=== PATIENT | female | born 1940 | race Caucasian/White ===

== ENCOUNTER 2019-10-12 10:15 | Emergency (ER) | payer MEDICARE, MEDICAID, SELFPAY ==
[2019-10-12] VITALS (9 sets, daily range): BP systolic 104–138; BP diastolic 50–68; PULSE 65–84; RESP 16–20; TEMP 36.6–36.7; O2SAT 94–99; BMI 23.2
--- NOTE | 2019-10-12 10:26 | W.ED.NAVMDI ---
HPI - Nausea/Vomiting/Diarrhea General: Chief complaint: Nausea/Vomiting/Diarrhea Stated complaint: NAUSEA/ DIARRHEA Time Seen by Provider: 10/12/19 10:18 Source: patient Mode of arrival: ambulatory Limitations: no limitations History of Present Illness: HPI Narrative: Patient is a very nice 78-year-old female who presents to ED today with a complaint of intermittent lower abdominal cramping over the past week. She has also been experiencing diarrhea. She states at maximum she will have 10-12 stools daily. She states if she is able to eat something she will have stool particles in the diarrhea otherwise she describes it as watery and yellow in nature. She has not been on any recent antibiotics. She states abdominal cramping is only present after eating or drinking. She has not been running fevers. She reports nausea without episodes of vomiting. Patient tells me she started Dexilant a month ago to help with some acid reflux-wonders if this could be contributing to her symptoms. She is not having any urinary symptoms. She has no history of colitis or diverticulitis. Patient is passing gas. MD elicited complaint: nausea, diarrhea and abdominal pain Onset (ago): day(s) Description of diarrhea: watery Associated nausea: Yes Associated abdominal pain: Yes Location of pain: Other (across lower abdomen) Pain consistency: intermittent Quality: cramping Exacerbating factors: eating Relieving factors: none Associated symtoms: Reports nausea; Denies change in vision, chest pain, dysuria, fatigue, headache(s) or malaise Review of Systems Const: Denies: fever(s), chills, body aches, fatigue or malaise Eyes: Denies: change in vision, blurry vision, photophobia, floaters or seeing flashes ENMT: Denies: throat pain or odynophagia Card: Denies: chest pain Resp: Denies: dyspnea GI: Reports: abdominal pain, nausea and diarrhea; Denies: vomiting, hematemesis, coffee ground emesis, hematochezia or melena : Denies: flank pain, difficulty voiding, dysuria, urinary frequency, urinary urgency or urinary hesitancy Musc: Denies: neck pain or back pain Skin/Breast: Denies: rash Neuro: Denies: headache(s) Physical Exam Const: COMMON NORMALS: no acute distress, average body habitus, patient oriented x3, no limitations, healthy appearing, alert and well nourished HENMT: COMMON NORMALS: normocephalic and atraumatic HEAD & SCALP: normocephalic and atraumatic Resp: COMMON NORMALS: normal respiratory effort and clear to auscultation bilaterally AUSCULTATION: clear to auscultation bilaterally Cardio: COMMON NORMALS: regular rate and regular rhythm RATE: regular rate RHYTHM: regular rhythm GI: COMMON NORMALS: Normal to inspection, nondistended, normoactive bowel sounds present, Soft to palpation, No hepatosplenomegaly present and no masses PALPATION: Yes Soft to palpation, Yes Tenderness to palpation present (GI) (mild tenderness throughout lower abd-states she is not having much pain now) and Yes No hepatosplenomegaly present : COMMON NORMALS: Yes no CVA tenderness BLADDER/KIDNEY EXAM: Yes no CVA tenderness Back/Pelvis: COMMON NORMALS: no CVA tenderness Extremity: COMMON NORMALS: normal to inspection, capillary refill normal, no clubbing, cyanosis or edema, no calf tenderness and no pedal edema Neuro: COMMON NORMALS: patient oriented x3 SENSORIUM/ORIENTATION: Yes alert Skin: COMMON NORMALS: no rashes or lesions noted GENERAL SKIN EXAM: no rashes or lesions noted Course ED course: patient adamantly refusing CT scan w/ contrast even though kidney labs are more than appropriate for this; she states her hadoop engineer has advised her against it; CT will be performed w/o contrast Vital Signs: Vital signs: Vital Signs Temperature 97.9 F 10/12/19 10:16 Pulse Rate 69 10/12/19 13:30 Respiratory Rate 20 H 10/12/19 13:30 Blood Pressure 126/60 10/12/19 13:30 Pulse Oximetry 98 10/12/19 13:30 MDM - Nausea/Vomiting/Diarrhea MDM Narrative: Medical decision making narrative: Patient's vitals are stable. Labs are not concerning at this time. She does have a urinary tract infection. We will culture this. Patient CT scan is essentially normal. UTI most likely responsible for patient's lower abdominal cramping although she did complain of some diarrhea and it could be related to that. Again CT scan did not show colitis/diverticulitis/etc. She has not been able to give us a stool sample throughout her 4 hour ED stay. She was written outpt orders for these. Discussed BRAT diet at home. Pt given IV rocephin here and will be placed on Macrobid for her UTI. Recommend close follow up with PCP or returning to the ED for worsening symptoms. Lab Data: Labs: Lab Results 10/12/19 10/12/19 10/12/19 Range/Units 10:56 10:56 11:16 WBC Cancelled Corrected WBC Cancelled RBC Cancelled Hgb Cancelled Hct Cancelled MCV Cancelled MCH Cancelled MCHC Cancelled RDW Cancelled Plt Count Cancelled MPV Cancelled Gran % Cancelled Neut % (Auto) Cancelled Lymph % (Auto) Cancelled [place] % (Auto) Cancelled Eos % (Auto) Cancelled Baso % (Auto) Cancelled Neut # (Auto) Cancelled Lymph # (Auto) Cancelled [place] # (Auto) Cancelled Eos # (Auto) Cancelled Baso # (Auto) Cancelled Absolute Gran (aut o) Cancelled Nucleated RBC % (a uto) Cancelled Nucleated RBCs # Cancelled Sodium Cancelled Potassium Cancelled Chloride Cancelled Carbon Dioxide Cancelled Anion Gap Cancelled BUN Cancelled Creatinine Cancelled GFR Calculation Cancelled Glucose Cancelled Random Glucose Calculated Osmolal ity Cancelled Calcium Cancelled Total Bilirubin Cancelled AST Cancelled ALT Cancelled Alkaline Phosphata se Cancelled Total Protein Cancelled Albumin Cancelled Globulin Cancelled Lipase Cancelled Urine Color Yellow (Yellow) Urine Appearance Sl cloudy A (CLEAR) Urine pH 6 (5-7) Ur Specific Gravit y 1.015 (1.005-1.030) Urine Protein Neg (Negative) Urine Glucose (UA) Norm (Normal) Urine Ketones Negative (Negative) Urine Blood Neg (Negative) Urine Nitrate Negative (Negative) Urine Bilirubin Neg (NEGATIVE) Urine Urobilinogen Neg (Negative) mg/dL Ur Leukocyte Miriam ase 2+ H (Negative) Urine RBC 0-4 H (0-2) /hpf Urine WBC 5-10 H (0-5) /hpf Ur Squamous Epith Cells 0-4 H (0-5) Amorphous Sediment Not Reportable Urine Bacteria 1+ H (NONE) Urine Mucus 1+ 10/12/19 10/12/19 Range/Units 12:03 12:03 WBC 6.1 Corrected WBC RBC 4.09 L Hgb 11.7 Hct 36.8 L MCV 90.0 MCH 28.6 MCHC 31.8 RDW 13.5 Plt Count 302 MPV 9.2 Gran % Neut % (Auto) 67.9 Lymph % (Auto) 17.8 [place] % (Auto) 9.0 Eos % (Auto) 3.9 Baso % (Auto) 0.7 Neut # (Auto) 4.16 Lymph # (Auto) 1.1 [place] # (Auto) 0.6 Eos # (Auto) 0.2 Baso # (Auto) 0.0 Absolute Gran (aut o) Nucleated RBC % (a uto) 0 Nucleated RBCs # 0.0 Sodium Cancelled Potassium Cancelled Chloride Cancelled Carbon Dioxide Cancelled Anion Gap Cancelled BUN Cancelled Creatinine Cancelled GFR Calculation Cancelled Glucose 81 Random Glucose Cancelled Calculated Osmolal ity 287 Calcium Cancelled Total Bilirubin Cancelled AST Cancelled ALT Cancelled Alkaline Phosphata se Cancelled Total Protein Cancelled Albumin Cancelled Globulin Cancelled Lipase 32 Urine Color (Yellow) Urine Appearance (CLEAR) Urine pH (5-7) Ur Specific Gravit y (1.005-1.030) Urine Protein (Negative) Urine Glucose (UA) (Normal) Urine Ketones (Negative) Urine Blood (Negative) Urine Nitrate (Negative) Urine Bilirubin (NEGATIVE) Urine Urobilinogen (Negative) mg/dL Ur Leukocyte Miriam ase (Negative) Urine RBC (0-2) /hpf Urine WBC (0-5) /hpf Ur Squamous Epith Cells (0-5) Amorphous Sediment Urine Bacteria (NONE) Urine Mucus Imaging Data^: CT Abd/Pel: Radiologist's impression: [place] [address] CT Scan Report Signed Patient: Pauline Castle Unit #: [id number] : 1940 Age/Sex: 78 / F ADM Date: 10/12/19 Loc: ER Room/Bed: Attending Dr: Ordering Provider/Ordering MD: Annmarie Calix Date of Service: 10/12/19 Procedure(s): CT abdomen pelvis wo con [id number] Accession Number(s): [id number] Report Number: [id number] WS: [id number] CT ABDOMEN AND PELVIS NONCONTRAST HISTORY: lower abdominal cramping; diarrhea TECHNIQUE: Imaging performed through the abdomen and pelvis. Coronal and sagittal reformats are submitted. All CT scans at [facility] use at least one of these dose optimization techniques: automated exposure control; mA and/or kV adjustment per patient size (includes targeted exams where dose is matched to clinical indication); or iterative reconstruction. DLP: 285.65 mGy.cm COMPARISON: 01/20/2019 Lower thorax: Calcified RIGHT breast implant. Emphysematous changes at the lung bases. Small pericardial effusion. Stomach is intrathoracic, similar to the prior study. Liver: Normal size liver. 10 mm cyst in the inferior RIGHT lobe. Gallbladder: Unremarkable. Pancreas: Normal. Spleen: Normal. Adrenal glands: Normal. Right kidney: Mild to moderate atrophy of the RIGHT kidney with no obstruction or solid mass. Mild diffuse cortical thinning. Left kidney: Mild/moderate atrophy of the LEFT kidney with no obstruction or mass. Mild diffuse cortical thinning. Moderate atherosclerosis aorta. No aneurysm. No free fluid, intraperitoneal air or significant lymphadenopathy. GI tract: No GI tract obstruction. No significant inflammatory changes surrounding the colon. No stricture or obstruction is identified. There are a few diverticula without acute diverticulitis. Abdominal wall: Intact. Pelvis: Stable RIGHT adnexal cyst measures 3.7 x 2.8 cm. There is a smaller cyst in the LEFT adnexa. Negative urinary bladder. Osseous structures: Increase in the lumbar lordosis. No osteoblastic or osteolytic bone disease. Prior pinning of the LEFT hip. CT/CT abdomen pelvis con [id number] IMPRESSION: 1. No acute abdominal process identified. 2. Mild diverticulosis without acute diverticulitis. 3. Atherosclerosis aorta. 4. Intrathoracic stomach. 5. Atrophied kidneys. No ascites. Dictated By: Destinee Rivers DO Signed By: Destinee Rivers DO Signed Date/Time: 10/12/19 1330 DD/ 1324 Discharge Plan Discharge Patient Disposition: Home Clinical Impression: Acute cystitis without hematuria Diarrhea Qualifiers: Diarrhea type: unspecified type Qualified Code(s): R19.7 - Diarrhea, unspecified Condition: Stable Prescriptions: New Macrobid 100 mg capsule 100 mg PO BID 7 Days Qty: 14 RF: 0 No Action carvedilol 6.25 mg tablet 6.25 mg PO BID Qty: 180 RF: 3 Wixela Inhub 250-50 mcg/dose Blister With Device 1 inh INHALATION BID RF: 0 atorvastatin 20 mg Tablet 20 mg PO DAILY RF: 0 famotidine 40 mg Tablet 40 mg PO BID RF: 0 spironolactone 25 mg Tablet 12.5 mg PO DAILY RF: 0 levothyroxine 25 mcg Tablet 25 mcg PO DAILY RF: 0 alprazolam 0.25 mg Tablet 0.25 mg PO BID RF: 0 Dexilant 60 mg Capsule,Biphase Delayed Releas 60 mg PO DAILY RF: 0 Discharge Orders: Discharge Order (Routine); Ordered 10/12/19 Ordered By: Annmarie Calix Referrals: Hoa Stock [Primary Care Provider] - Patient Instructions: Urinary Tract Infection in Women (ED) Activity Restrictions/Additional Instructions: As discussed I have written you outpatient orders for stool samples. If you have a diarrhea stool at home you may collect this and bring this back so we can run them. Return to the emergency department for worsening abdominal pain, worsening diarrhea, bloody diarrhea, repetitive episodes of vomiting, fevers, any other concerns you may have. Otherwise please follow-up with your primary care provider next week. Coding Level of Care Code ED Commissary Production Supervisor for Chg Fwd Exam Comprehensive
--- NOTE | 2019-10-12 10:35 | CT_ITS ---
WS: [id number] CT ABDOMEN AND PELVIS NONCONTRAST HISTORY: lower abdominal cramping; diarrhea TECHNIQUE: Imaging performed through the abdomen and pelvis. Coronal and sagittal reformats are submi tted. All CT scans at [facility] use at least one of these dose optimization techniques: automated exposure control; mA and/or kV adjustment per patient size (includes targeted exams where d ose is matched to clinical indication); or iterative reconstruction. DLP: 285.65 mGy.cm COMPARISON: 01/20/2019 Lower thorax: Calcified RIGHT breast implant. Emphysematous changes at the lung bases. Small pericard ial effusion. Stomach is intrathoracic, similar to the prior study. Liver: Normal size liver. 10 mm cyst in the inferior RIGHT lobe. Gallbladder: Unremarkable. Pancreas: Normal. Spleen: Normal. Adrenal glands: Normal. Right kidney: Mild to moderate atrophy of the RIGHT kidney with no obstruction or solid mass. Mild di ffuse cortical thinning. Left kidney: Mild/moderate atrophy of the LEFT kidney with no obstruction or mass. Mild diffuse corti simona thinning. Moderate atherosclerosis aorta. No aneurysm. No free fluid, intraperitoneal air or significant lymphadenopathy. GI tract: No GI tract obstruction. No significant inflammatory changes surrounding the colon. No stri cture or obstruction is identified. There are a few diverticula without acute diverticulitis. Abdominal wall: Intact. Pelvis: Stable RIGHT adnexal cyst measures 3.7 x 2.8 cm. There is a smaller cyst in the LEFT adnexa. Negative urinary bladder. Osseous structures: Increase in the lumbar lordosis. No osteoblastic or osteolytic bone disease. Olga Lidiao r pinning of the LEFT hip. CT/CT abdomen pelvis wo con [id number] IMPRESSION: 1. No acute abdominal process identified. 2. Mild diverticulosis without acute diverticulitis. 3. Atherosclerosis aorta. 4. Intrathoracic stomach. 5. Atrophied kidneys. No ascites.
[2019-10-12] MEDS: sodium chloride 0.9% 1,000 ML 999 ML IV (11:05)
[2019-10-12 11:30] LABS: Add Urine Microscopic? YES; Bilirubin Urine Neg (NEGATIVE); Blood Urine Neg (Negative); Glucose Urine UA Norm (Normal); Ketones Urine Negative (Negative); Leukocyte Esterase Urine 2+ (Negative); Nitrate Urine Negative (Negative); Protein Urine Neg (Negative); Specific Gravity, Urine 1.015 (1.005-1.030); Urine Color Yellow (Yellow); Urobilinogen Urine Neg (Negative); pH Urine 6 (5-7)
[2019-10-12 11:31] LABS: Add Urine Culture? Yes; Bacteria Urine 1+; Mucus Urine 1+; RBC Urine 0-4 /hpf (0-2); Squamous Epithelial Cell Urine 0-4 (0-5)
[2019-10-12 12:09] LABS: Basophils % 0.7 %; Eosinophils # 0.2 10^3/uL (0.0-0.8); Eosinophils % 3.9 %; Hematocrit 36.8 % (37.0-47.0); Hemoglobin 11.7 g/dL (11.5-15.3); Lymphocytes # 1.1 10^3/uL (0.8-4.8); Lymphocytes % 17.8 %; Mean Corpuscular HGB Conc 31.8 g/dL (30.0-36.0); Mean Corpuscular Hemoglobin 28.6 pg (28.0-34.0); Mean Platelet Volume 9.2 fL (7.4-10.4); Monocytes # 0.6 10^3/uL (0.2-0.9); Neutrophils # 4.16 10^3/uL (1.8-7.7); Neutrophils % 67.9 %; Nucleated Red Blood Cells % 0 %; Platelet Count 302 10^3/cmm (130-400); Red Blood Count 4.09 10^6/uL (4.1-5.3); Red Cell Distribution Width 13.5 % (12.1-15.1); White Blood Count 6.1 10^3/uL (4.0-10.0)
[2019-10-12 12:28] LABS: Alanine Aminotransferase < 5 U/L (0-33); Albumin Level 3.9 g/dL (3.5-5.2); Alkaline Phosphatase 105 IU/L (35-105); Anion Gap 12.3 (5-19); Aspartate Amino Transferase 11 U/L (0-32); Blood Urea Nitrogen 15 mg/dL (8-23); Calcium 8.8 mg/dL (8.5-10.5); Carbon Dioxide 17 mmol/L (22-29); Chloride 115 mmol/L (98-107); Creatinine Clr Calc Pharmacy 33.5898; Globulin 2.3 g/dL (1.3-4.6); Glucose 81 mg/dL (65-115); Lipase 32 U/L (13-60); Osmolality Calculated 287 mOsm/kg (285-295); Potassium 3.3 mmol/L (3.5-5.1); Sodium 141 mmol/L (136-145); Total Bilirubin 0.2 mg/dL (0.15-1.2); Total Protein 6.2 g/dL (6.6-8.7)
[2019-10-12] MEDS: cefTRIAXone 1,000 MG in sodium chloride 0.9% (plus) 50 ML 100 MG IV (13:47)
== END 2019-10-12 14:35 | disposition home or self-care (01) ==
PROVIDERS: Emergency Provider Physician Assistant; PCP Nurse Practitioner Family
DX: N30.00 Acute cystitis without hematuria (principal); R19.7 Diarrhea, unspecified
CPT/HCPCS: 12345; 74176; 80053; 81001; 83690; 85025; 87086; 96365; 99283; 99284; J0696; J7030

== ENCOUNTER 2019-12-15 12:39 | Emergency (ER) | payer MEDICARE, MEDICAID, SELFPAY ==
[2019-12-15] VITALS (11 sets, daily range): BP systolic 94–126; BP diastolic 51–81; PULSE 80–110; RESP 16–22; TEMP 36.6–36.9; O2SAT 96–100; BMI 23.8
[2019-12-15 13:20] LABS: Basophils % 0.4 %; Eosinophils # 0.6 10^3/uL (0.0-0.8); Eosinophils % 5.3 %; Hematocrit 25.2 % (37.0-47.0); Hemoglobin 7.6 g/dL (11.5-15.3); Lymphocytes # 1.6 10^3/uL (0.8-4.8); Lymphocytes % 14.7 %; Mean Corpuscular HGB Conc 30.2 g/dL (30.0-36.0); Mean Corpuscular Hemoglobin 25.9 pg (28.0-34.0); Mean Platelet Volume 9.5 fL (7.4-10.4); Monocytes # 0.9 10^3/uL (0.2-0.9); Monocytes % 8.5 %; Neutrophils # 7.47 10^3/uL (1.8-7.7); Neutrophils % 70.3 %; Nucleated Red Blood Cells % 0 %; Platelet Count 421 10^3/cmm (130-400); Red Blood Count 2.93 10^6/uL (4.1-5.3); Red Cell Distribution Width 15.7 % (12.1-15.1); White Blood Count 10.6 10^3/uL (4.0-10.0)
[2019-12-15 13:28] LABS: Alanine Aminotransferase 7 U/L (0-33); Albumin Level 3.9 g/dL (3.5-5.2); Alkaline Phosphatase 108 IU/L (35-105); Anion Gap 16.2 (5-19); Aspartate Amino Transferase 10 U/L (0-32); Blood Urea Nitrogen 39 mg/dL (8-23); Calcium 9.2 mg/dL (8.5-10.5); Carbon Dioxide 21 mmol/L (22-29); Chloride 102 mmol/L (98-107); Glucose 130 mg/dL (65-115); Lipase 44 U/L (13-60); Osmolality Calculated 291 mOsm/kg (285-295); Potassium 4.2 mmol/L (3.5-5.1); Sodium 135 mmol/L (136-145); Total Bilirubin 0.2 mg/dL (0.15-1.2); Total Protein 5.9 g/dL (6.6-8.7)
[2019-12-15 14:06] LABS: Lactic Sepsis W/Reflex 1.1 mmol/L (0.5-2.2)
--- NOTE | 2019-12-15 14:09 | ED_ITS ---
HPI - GI Bleed General: Chief complaint: GI Bleed Stated complaint: BLACK STOOLS/WEAKNESS Time Seen by Provider: 12/15/19 12:42 History of Present Illness: HPI Narrative: This patient is an 79-year-old female who presents today with black stools. She says she has been having this problem for years and it comes and goes. She also has had low iron in the past. She had been having some black stools and got a blood transfusion in [place] on Tuesday. She comes in today having had several more black bowel movements and feeling very weak and short of breath. complaint: melena Onset (ago): week(s) (1) Pain Consistency: other (No pain) Relieving factors: none Exacerbating factors: none Context: history of GI bleed (Has had multiple endoscopies with no findings. She said Protonix usually stops the bleeding.) Associated symptoms: Reports weakness and other (Short of breath); Denies abdominal pain, chills, easy bruising, fever(s), headache(s), malaise, nausea, rash or vomiting Review of Systems General: Reports: 10 or more systems reviewed and unremarkable except in HPI and below Const: Reports: fatigue; Denies: fever(s), chills or malaise Eyes: Denies: change in vision ENMT: Denies: odynophagia Card: Denies: chest pain or swelling of feet/ankles Resp: Reports: dyspnea; Denies: productive cough or non-productive cough GI: Reports: melena; Denies: abdominal pain, nausea or vomiting : Denies: flank pain or difficulty voiding Musc: Denies: neck pain or back pain Skin/Breast: Denies: rash Neuro: Denies: headache(s), numbness in extremities or weakness in extremities Emre/Lymph: Denies: easy bruising or easy bleeding Physical Exam Const: COMMON NORMALS: no acute distress, patient oriented x3, no limitations and alert GENERAL APPEARANCE: cooperative and comfortable HENMT: HEAD & SCALP: normal to inspection FACE & SINUS: normal facial exam Eye: GENERAL EYE: appearance normal, both eyes and all related structures Neck/C-Spine: COMMON NORMALS: supple, no meningeal signs and no JVD Chest: COMMONS NORMALS: normal inspection of the chest Resp: COMMON NORMALS: normal respiratory effort, No use of accessory muscles and clear to auscultation bilaterally AUSCULTATION: clear to auscultation bilaterally Cardio: COMMON NORMALS: no JVD, regular rate, regular rhythm and No murmurs present (Cardio) RATE: regular rate RHYTHM: regular rhythm GI: COMMON NORMALS: Normal to inspection, nondistended, normoactive bowel sounds present, Soft to palpation and non-tender INSPECTION: Yes normal to inspection AUSCULTATION: Yes normoactive bowel sounds PALPATION: Yes Soft to palpation Back/Pelvis: COMMON NORMALS: thoracic and lumbar spine normal to inspection Extremity: COMMON NORMALS: normal to inspection Neuro: COMMON NORMALS: patient oriented x3, moves all extremities, no focal motor deficits and no sensory deficits noted SENSORIUM/ORIENTATION: Yes alert MENINGEAL SIGNS: Yes no meningeal signs Psych: COMMON NORMALS: mental status grossly normal, cooperative and normal affect Skin: COMMON NORMALS: no rashes or lesions noted and turgor normal GENERAL SKIN EXAM: no rashes or lesions noted and turgor normal Course ED course: Patient's hemoglobin was 7.6. Technically that would not trigger transfusion however she is symptomatic with the anemia and so I feel like it is reasonable to give her a unit. I do not necessarily think she needs to be admitted as this is been a chronic problem. As long as she does not have any further episodes here I think she may be able to go home still. Vital Signs: Vital signs: Vital Signs Temperature 98.2 F 12/15/19 17:00 Pulse Rate 100 12/15/19 19:22 Respiratory Rate 18 12/15/19 19:22 Blood Pressure 112/51 12/15/19 17:00 Pulse Oximetry 100 12/15/19 19:22 MDM - GI Bleed Lab Data: Labs: Lab Results 12/15/19 12/15/19 12/15/19 Range/Units 11:50 11:50 11:50 WBC 10.6 H (4.0-10.0) 10^3/ uL RBC 2.93 L (4.1-5.3) 10^6/u L Hgb 7.6 L (11.5-15.3) g/dL Hct 25.2 L (37.0-47.0) % MCV 86.0 (81-99) fL MCH 25.9 L (28.0-34.0) pg MCHC 30.2 (30.0-36.0) g/dL RDW 15.7 H (12.1-15.1) % Plt Count 421 H (130-400) 10^3/c mm MPV 9.5 (7.4-10.4) fL Neut % (Auto) 70.3 % Lymph % (Auto) 14.7 % [place] % (Auto) 8.5 % Eos % (Auto) 5.3 % Baso % (Auto) 0.4 % Neut # (Auto) 7.47 (1.8-7.7) 10^3/u L Lymph # (Auto) 1.6 (0.8-4.8) 10^3/u L [place] # (Auto) 0.9 (0.2-0.9) 10^3/u L Eos # (Auto) 0.6 (0.0-0.8) 10^3/u L Baso # (Auto) 0.0 (0.0-0.1) 10^3/u L Nucleated RBC % (a uto) 0 % Nucleated RBCs # 0.0 /100WBC Sodium 135 L (136-145) mmol/L Potassium 4.2 (3.5-5.1) mmol/L Chloride 102 (98-107) mmol/L Carbon Dioxide 21 L (22-29) mmol/L Anion Gap 16.2 (5-19) BUN 39 H (8-23) mg/dL Creatinine 1.3 H (0.5-0.9) mg/dL GFR Calculation Not Reportable Glucose 130 H (65-115) mg/dL Calculated Osmolal ity 291 (285-295) mOsm/k g Lactic Acid (0.5-2.2) mmol/L Calcium 9.2 (8.5-10.5) mg/dL Iron 13 L (37-145) ug/dL TIBC 385 mcg/dl % Saturation 3.3 L (20-50) % Unsat Iron Binding 372 H (112-347) ug/dL Ferritin 68 (15-150) ng/mL Total Bilirubin 0.2 (0.15-1.2) mg/dL AST 10 (0-32) U/L ALT 7 (0-33) U/L Alkaline Phosphata se 108 H (35-105) IU/L Total Protein 5.9 L (6.6-8.7) g/dL Albumin 3.9 (3.5-5.2) g/dL Globulin 2.0 (1.3-4.6) g/dL Lipase 44 (13-60) U/L Blood Type Rho(D) Type Antibody Screen Crossmatch 12/15/19 12/15/19 Range/Units 13:36 13:36 WBC (4.0-10.0) 10^3/ uL RBC (4.1-5.3) 10^6/u L Hgb (11.5-15.3) g/dL Hct (37.0-47.0) % MCV (81-99) fL MCH (28.0-34.0) pg MCHC (30.0-36.0) g/dL RDW (12.1-15.1) % Plt Count (130-400) 10^3/c mm MPV (7.4-10.4) fL Neut % (Auto) % Lymph % (Auto) % [place] % (Auto) % Eos % (Auto) % Baso % (Auto) % Neut # (Auto) (1.8-7.7) 10^3/u L Lymph # (Auto) (0.8-4.8) 10^3/u L [place] # (Auto) (0.2-0.9) 10^3/u L Eos # (Auto) (0.0-0.8) 10^3/u L Baso # (Auto) (0.0-0.1) 10^3/u L Nucleated RBC % (a uto) % Nucleated RBCs # /100WBC Sodium (136-145) mmol/L Potassium (3.5-5.1) mmol/L Chloride (98-107) mmol/L Carbon Dioxide (22-29) mmol/L Anion Gap (5-19) BUN (8-23) mg/dL Creatinine (0.5-0.9) mg/dL GFR Calculation Glucose (65-115) mg/dL Calculated Osmolal ity (285-295) mOsm/k g Lactic Acid 1.1 (0.5-2.2) mmol/L Calcium (8.5-10.5) mg/dL Iron (37-145) ug/dL TIBC mcg/dl % Saturation (20-50) % Unsat Iron Binding (112-347) ug/dL Ferritin (15-150) ng/mL Total Bilirubin (0.15-1.2) mg/dL AST (0-32) U/L ALT (0-33) U/L Alkaline Phosphata se (35-105) IU/L Total Protein (6.6-8.7) g/dL Albumin (3.5-5.2) g/dL Globulin (1.3-4.6) g/dL Lipase (13-60) U/L Blood Type O Positive Rho(D) Type Positive Antibody Screen Negative Crossmatch See Detail Discharge Plan Discharge Patient Disposition: Home Clinical Impression: Lower gastrointestinal hemorrhage Anemia Qualifiers: Anemia type: unspecified type Qualified Code(s): D64.9 - Anemia, unspecified Condition: Stable Prescriptions: No Action carvedilol 6.25 mg tablet 6.25 mg PO BID Qty: 180 RF: 3 Wixela Inhub 250-50 mcg/dose Blister With Device 1 inh INHALATION BID RF: 0 atorvastatin 20 mg Tablet 20 mg PO DAILY RF: 0 famotidine 40 mg Tablet 40 mg PO BID RF: 0 spironolactone 25 mg Tablet 12.5 mg PO DAILY RF: 0 levothyroxine 25 mcg Tablet 25 mcg PO DAILY RF: 0 alprazolam 0.25 mg Tablet 0.25 mg PO BID RF: 0 Dexilant 60 mg Capsule,Biphase Delayed Releas 60 mg PO DAILY RF: 0 Discharge Orders: Discharge Order (Routine); Ordered 12/15/19 Ordered By: Chloé Michele Referrals: Hoa Stock [Primary Care Provider] - Discharge Diet: Advance as tolerated Discharge Activity: Resume usual activity Patient Instructions: Gastrointestinal Bleeding (ED), Anemia (ED) Activity Restrictions/Additional Instructions: Follow-up with your primary care doctor this week. Return to the emergency department if new or worsening symptoms including continued GI bleeding, shortness of breath, chest pain, weakness. Discharge Date/Time: 12/15/19 19:22 Coding Level of Care Code ED Mill Tender Second Operator for Chaitanya Fwlisy Exam Comprehensive
[2019-12-15] MEDS: pantoprazole 40 mg SDV 80 MG IVP (15:15)
[2019-12-15 16:18] LABS: Ferritin 68 ng/mL (15-150); Iron 13 ug/dL (37-145); Percent Saturation 3.3 % (20-50); Total Iron Binding Capacity 385 mcg/dl; Unsaturated Iron Binding 372 ug/dL (112-347)
== END 2019-12-15 19:22 | disposition home or self-care (01) ==
PROVIDERS: Emergency Provider Emergency Medicine; PCP Nurse Practitioner Family
DX: K92.2 Gastrointestinal hemorrhage, unspecified (principal); D64.9 Anemia, unspecified
CPT/HCPCS: 12345; 36415; 36430; 80053; 82728; 83540; 83550; 83605; 83690; 85025; 86850; 86900; 86920; 96374; 99284; C9113; P9016

== ENCOUNTER 2019-12-19 10:15 | Outpatient (CLI) | payer MEDICARE, MEDICAID, SELFPAY ==
[2019-12-19 12:14] LABS: Basophils % 0.6 %; Eosinophils # 0.5 10^3/uL (0.0-0.8); Eosinophils % 6.6 %; Hematocrit 31.6 % (37.0-47.0); Hemoglobin 9.2 g/dL (11.5-15.3); Lymphocytes # 1.3 10^3/uL (0.8-4.8); Lymphocytes % 18.5 %; Mean Corpuscular HGB Conc 29.1 g/dL (30.0-36.0); Mean Corpuscular Hemoglobin 25.7 pg (28.0-34.0); Mean Corpuscular Volume 88.3 fL (81-99); Mean Platelet Volume 9.5 fL (7.4-10.4); Monocytes # 0.8 10^3/uL (0.2-0.9); Monocytes % 11.2 %; Neutrophils # 4.55 10^3/uL (1.8-7.7); Neutrophils % 62.5 %; Nucleated Red Blood Cells % 0 %; Platelet Count 357 10^3/cmm (130-400); Red Blood Count 3.58 10^6/uL (4.1-5.3); Red Cell Distribution Width 16.4 % (12.1-15.1); White Blood Count 7.3 10^3/uL (4.0-10.0)
== END 2019-12-19 10:16 | disposition home or self-care (01) ==
LOC: ONCMED 14:21
PROVIDERS: PCP Nurse Practitioner Family; Visit Provider Internal Medicine Hematology & Oncology
DX: D50.8 Other iron deficiency anemias (principal)
CPT/HCPCS: 85025

== ENCOUNTER 2019-12-24 06:09 | Outpatient (CLI) | payer MEDICARE, MEDICAID, SELFPAY ==
[2019-12-24 11:07] LABS: Basophils % 0.4 %; Eosinophils # 0.5 10^3/uL (0.0-0.8); Eosinophils % 5.4 %; Hematocrit 31.3 % (37.0-47.0); Hemoglobin 9.1 g/dL (11.5-15.3); Lymphocytes # 1.2 10^3/uL (0.8-4.8); Lymphocytes % 11.8 %; Mean Corpuscular HGB Conc 29.1 g/dL (30.0-36.0); Mean Corpuscular Hemoglobin 25.1 pg (28.0-34.0); Mean Corpuscular Volume 86.2 fL (81-99); Mean Platelet Volume 9.2 fL (7.4-10.4); Monocytes # 0.7 10^3/uL (0.2-0.9); Monocytes % 7.3 %; Neutrophils % 74.7 %; Nucleated Red Blood Cells % 0 %; Platelet Count 452 10^3/cmm (130-400); Red Blood Count 3.63 10^6/uL (4.1-5.3); Red Cell Distribution Width 16.4 % (12.1-15.1)
[2019-12-24 11:23] LABS: Alanine Aminotransferase 9 U/L (0-33); Alkaline Phosphatase 118 IU/L (35-105); Anion Gap 15.9 (5-19); Aspartate Amino Transferase 12 U/L (0-32); Blood Urea Nitrogen 17 mg/dL (8-23); Calcium 8.7 mg/dL (8.5-10.5); Carbon Dioxide 22 mmol/L (22-29); Chloride 105 mmol/L (98-107); Ferritin 6 ng/mL (15-150); Globulin 2.4 g/dL (1.3-4.6); Glucose 99 mg/dL (65-115); Iron 21 ug/dL (37-145); Osmolality Calculated 290 mOsm/kg (285-295); Percent Saturation 5.5 % (20-50); Potassium 3.9 mmol/L (3.5-5.1); Sodium 139 mmol/L (136-145); Total Bilirubin 0.3 mg/dL (0.15-1.2); Total Iron Binding Capacity 377 mcg/dl; Total Protein 6.4 g/dL (6.6-8.7); Unsaturated Iron Binding 356 ug/dL (112-347)
[2019-12-24] MEDS: ferric carboxy (IVPB) 750 MG in sodium chloride 0.9% (100 ml) 100 ML 460 MG IV (12:36)
--- NOTE | 2019-12-28 15:48 | ONC FU_ITS ---
Dr. Iverson Patient Follow-Up Note Patient: Pauline Castle Unit #: [id number]: 1940 Dicatated By: Freedom Iverson M.D.Date of Visit:Dec 24, 2019 Onc Med Follow-up/Prog Note Chief Complaint: Anemia. History of Present Illness: This is an 79 year-old woman with iron deficiency anemia. She has a history of hypertension, dyslipidemia, and coronary artery disease. She underwent coronary angioplasty/stent placement in 2009. Sometime after that she had an episode of GI bleeding, which apparently was confirmed by endoscopy to be a bleeding ulcer. I had seen her initially in July 2013 after she had been found to be severely anemic. She felt better following a transfusion of packed red blood cells, but her followup CBCs were still showing significant anemia. As of June 2013 her hemoglobin was still low at 6.2 g with hematocrit 27%. The red cell indices were hypochromic/microcytic with MCV 27 and MCH 64. White blood cell count normal at 5900 and platelet count was normal at 324,000. Serum iron was low at 11 mcg/dL. She had started oral iron supplementation with ferrous sulfate, but she had difficulty tolerating it due to nausea. I did opt to give her parenteral iron replacement with Venofer, which she completed in September 2013 to a total dose of 1800 mg. Her follow-up CBC in October 2013 showed hemoglobin up to 15 g with normal red cell indices. In August 2015 she was admitted to the hospital with another acute GI bleed. Her upper GI endoscopy showed only mild patchy gastritis. There was no evidence of ongoing mucosal bleeding. The duodenum appeared unremarkable. She was seen by Aundrea Zhang on 05/13/2016 with complaints of fatigue and cough. She was moderately anemic with hemoglobin 9.6 g and hematocrit 30%. The red cell indices were hypochromic/microcytic with MCV 68 and MCH 21. The white blood cell count was slightly elevated at 11,300 and the platelet count also was mildly elevated at 540,000. Transferrin saturation at that time was 5% and ferritin was low at 7.6 ng/mL. She was seen in the emergency room in [place] on 05/19/2016. At that time she also was found to have low potassium at 2.9 mmol/L. I had seen her for a follow-up visit on 05/21/2016. She was then given parenteral iron replacement with infusions of Injectafer on 05/21/2016 and on 05/28/2016. Her medical illnesses include hypertension, dyslipidemia, coronary artery disease, and GERD/peptic ulcer disease. Her records indicate that she also has chronic diastolic heart failure. She has history of smoking 1 pack of cigarettes daily for 40 years. She quit smoking in 2009. INTERIM HISTORY: She indicates that she was in the hospital again due to GI bleeding. This she attributes to Plavix having done a number on her . She indicates she was found to have a polyp on her colonoscopy, but it apparently was only partially excised. She complains that she has no energy. She is able to do it is very limited housework. ECOG score is 2. She says her appetite is gone. Her weight, though, appears stable. She does not have fever or night sweats. She has shortness of breath with activity and she also has cough. Recently she has been having palpitations, and she thinks she passed out once. She has had acid reflux, which she stopped medication for it because of diarrhea. She says her bowels are better now, though she still has black stools. Bladder function has been okay. She has pain in her neck and she also complains that her left hip has been sore. She has sinus headache. She gets dizzy when she bends over. She has numbness in her left leg. Medications: Acetaminophen 1 Tablet (of 500 mg) Oral daily, Advair Diskus 1 Puff(s) (of 250-50 mcg/dose) Aerosol Powder, Breath Activated Inhalation b.i.d., ALPRAZolam 1 (0.25 mg) Tablet Oral daily PRN, Atorvastatin Calcium 1 Tablet (of 20 mg) Oral at bedtime, Carvedilol 1 Tablet (of 6.25 mg) Oral b.i.d., Cetirizine HCl 1 Tablet (of 10 mg) Oral daily PRN, Flonase 2 [place]reezewood(s) (of 50 mcg/act) Suspension Nasal daily, Imodium A-D 1 Tablet (of 2 mg) Oral PRN, Levo-T 1 (25 mcg) Tablet Oral daily, Nitroglycerin 1 Tablet (of 0.4 mg) Tablet, sublingual Sublingual PRN, Pantoprazole Sodium 1 (40 mg) Tablet, enteric coated Oral b.i.d., Spironolactone 0.5 Tablet (of 25 mg) Oral daily, traZODone HCl 1 Tablet (of 50 mg) Oral at bedtime PRN Allergies: Phenergan Review of Systems: Constitutional - She complained that she has no energy. She is able to do just very limited light work at home. Her appetite is gone. Her weight is stable. No fever, night sweats, or hot flashes. ECOG score is 1, ENMT - She has sinus congestion/drainage. She complains that she has cottonmouth. No sore throat or difficulty swallowing, Hematologic/Lymphatic - No abnormal bruising, Respiratory - She has shortness of breath and she continues to have cough. No pleuritic pain or hemoptysis, Cardiovascular - No angina pain. Recently she has had palpitations, and she passed out on 1 occasion, Gastrointestinal - No nausea or vomiting. She has had acid reflux, she stopped her medication because of diarrhea. Her bowels are better now, but she has had black stools, Genitourinary (F) - No dysuria or hematuria. No urinary frequency. No urgency or incontinence, Musculoskeletal - She has pain in her neck and she also complains that her left hip is sore, Integumentary - No skin rash, Neurologic - She has sinus headache. She has dizziness/disequilibrium, especially when she is bending over. She has numbness in her left leg, Psychiatric - She has anxiety. She does not sleep well. Vital Signs: Performed on Dec 24, 2019 11:43 Height - 59.00 in Weight - 122.0 lbs (HIGH) BSA - 1.49 sq.m BMI - 24.64 Temperature - 97.0 F (LOW) Pulse - 69 /min Respiration - 24 /min BP - 135/70 mm(hg) O2 Sat - 94 % (LOW) Pain - 0 Physical Examination: Constitutional - She looks pretty good generally, Eyes - Sclerae nonicteric. Conjunctivae clear, ENMT - No lesions noted in the oral cavity, Hematologic/Lymphatic - No cervical, clavicular, or axillary adenopathy, Respiratory - Lungs are clear with good air movement bilaterally, Cardiovascular - Heart rhythm is regular. There is no murmur, gallop, or rub noted, Abdomen - Soft. Liver and spleen are not enlarged. There is no abdominal mass or ascites noted and there is no inguinal adenopathy, Extremities - No edema. There is a large cyst on the lateral aspect of the left ankle, Neurologic - No focal neurologic deficits noted. Lab/Imaging: Test performed on Dec 24, 2019 10:44 Ferritin 6 ng/mL Iron 21 mcg/dL Sodium 139 mmol/L Iron Binding Capacity (TIBC) 377 mcg/dl Potassium 3.9 mmol/L % Iron Saturation 5.5 % Chloride 105 mmol/L CO2 22 mmol/L UIBC 356 mcg/dL Anion Gap 15.9 BUN 17 mg/dL Creatinine 1.1 mg/dL Cr Clearance (Est) 35.04 mL/min Glucose 99 mg/dL Osmolality - Calculated 290 mOsm/kg Calcium 8.7 mg/dL Protein, Total 6.4 g/dL Albumin 4.0 g/dL Globulin 2.4 g/dL Bilirubin, Total 0.3 mg/dL ALT (SGPT) 9 U/L AST (SGOT) 12 U/L Alkaline Phosphatase 118 IU/L WBC 10.0 10 3/uL RBC 3.63 10 6/uL HGB 9.1 g/dL HCT 31.3 % MCV 86.2 fL MCH 25.1 pg MCHC 29.1 g/dL RDW 16.4 % Platelet Count 452 10 3/cmm MPV 9.2 fL Neutrophils 7.50 10 3/uL Lymphocytes 1.2 10 3/uL Monocytes 0.7 10 3/uL Eosinophils 0.5 10 3/uL Basophils 0.0 10 3/uL Neutrophil % 74.7 % Lymphocyte % 11.8 % Monocyte % 7.3 % Eosinophil % 5.4 % Basophils % 0.4 % NRBC % 0 % Anti-D Positive Blood Type OP Antibody Screen (Gel) NEGATIVE Impression: 1. Patient with recurrent iron deficiency anemia, presumably due to GI blood loss, though an actual source of blood loss was not determined. She has had poor tolerance for oral iron. Her anemia previously had corrected following a course of parenteral iron replacement with Venofer, completed in September 2013. Her other medical illnesses include: 2. Hypertension. 3. Dyslipidemia. 4. Coronary artery disease with previous angioplasty/stent placement. 5. She has a prior history of peptic ulcer disease with documented bleeding ulcer. 6. She has chronic anxiety. She was given parenteral iron replacement with infusions of Injectafer on 05/21/2016 and on 05/28/2016. Initially she did show some symptomatic improvement with it, but only for a short time. She was then lost to follow-up. She returns now with recurrence of iron deficiency anemia, apparently due to GI blood loss. By her account, she was found to have a polyp on her colonoscopy and it has transferred only been partially excised. Plan: As she has recurrence of iron deficiency anemia and she has been intolerant of oral iron, she will be given parenteral iron replacement with 2 infusions of Injectafer. She will have a 1 month interval follow-up at [facility]. Signed By: Freedom Iverson M.D. <<Signature on File>>
== END 2019-12-24 06:10 | disposition home or self-care (01) ==
LOC: ONCMED 06:11
PROVIDERS: PCP Nurse Practitioner Family; Visit Provider Internal Medicine Medical Oncology
DX: D50.9 Iron deficiency anemia, unspecified (principal); I10 Essential (primary) hypertension; E78.5 Hyperlipidemia, unspecified; I25.10 Atherosclerotic heart disease of native coronary artery without angina pectoris; F41.9 Anxiety disorder, unspecified; Z87.11 Personal history of peptic ulcer disease; Z95.5 Presence of coronary angioplasty implant and graft
CPT/HCPCS: 80053; 82728; 83540; 83550; 85025; 86850; 86900; 96365; 99214; J1439

== ENCOUNTER 2020-01-01 07:55 | Outpatient (CLI) | payer MEDICARE, MEDICAID, SELFPAY ==
[2020-01-01] MEDS: ferric carboxy (IVPB) 750 MG in sodium chloride 0.9% (100 ml) 100 ML 345 MG IV (10:15)
== END 2020-01-01 07:56 | disposition home or self-care (01) ==
LOC: ONCMED 07:58
PROVIDERS: PCP Nurse Practitioner Family; Visit Provider Internal Medicine Medical Oncology
DX: D50.8 Other iron deficiency anemias (principal)
CPT/HCPCS: 96365; J1439

== ENCOUNTER 2020-01-10 11:44 | Emergency (ER) | payer MEDICARE, MEDICAID, SELFPAY ==
[2020-01-10 11:45] VITALS: BP 142/67; PULSE 74; RESP 16; TEMP 36.9; O2SAT 98; BMI 23.8
--- NOTE | 2020-01-10 11:49 | XR_ITS ---
WS: [id number] XR chest 1V portable [id number] REASON FOR EXAM: weakness FINDINGS: The chest is unchanged compared to previous examination of 01/20/2019. There are bilateral calcified breast prostheses. There is a very large hiatal hernia. There is mild cardiomegaly. No active pulmonary parenchymal or pleural disease is identified. No significant abnormality of the bony thorax. XR/XR chest 1V portable [id number] IMPRESSION: Stable chest as above with no acute abnormality identified.
--- NOTE | 2020-01-10 11:50 | ECG_ITS ---
[facility] Test Date: 2020-01-10 Pat Name: Pauline Castle Department: Room: Gender: Female [employer]: : 1940 Requested By: Chapincito Davalos Order Number: [id number] Reading MD: DANIELITO HINDS Measurements Intervals Gardner Rate: 74 P: 55 KS: 184 QRS: -3 QRSD: 81 T: 19 QT: 378 QTc: 420 Interpretive Statements SINUS RHYTHM LOW QRS VOLTAGE IN PRECORDIAL LEADS [QRS DEFLECTION < 1.0 mV IN CHEST LEADS] Compared to ECG 01/22/2019 00:47:56 Low QRS voltage now present Sinus tachycardia no longer present T-wave abnormality no longer present Electronically Signed On 01-11-2020 19:29:55 NURSERY HELPER by DANIELITO HINDS [id number]
--- NOTE | 2020-01-10 12:15 | ED_ITS ---
HPI - GI Bleed General: Chief complaint: GI Bleed Stated complaint: WEAK/ BLACK TARRY STOOLS Time Seen by Provider: 01/10/20 11:51 Source: patient Mode of arrival: ambulatory Limitations: no limitations History of Present Illness: HPI Narrative: 79-year-old female who states she is has a history of a chronic GI bleed over the last 10 years that no one is been able to figure out exactly what is caused it. She states that she had to have transfusions in the past for this. She states that started having black stools again last night and today and has had generalized weakness. She gets chronic iron infusions as well. She denies abdominal pain. Blood pressure here is stable. Associated symptoms: Denies abdominal pain, chills, easy bruising, fever(s), nausea, rash or vomiting Review of Systems Const: Denies: fever(s), chills, body aches or change in appetite Eyes: Denies: blurry vision or eye discomfort ENMT: Denies: throat pain or dental pain Card: Denies: chest pain Resp: Denies: dyspnea GI: Denies: abdominal pain, nausea, vomiting or diarrhea : Denies: dysuria Musc: Denies: neck pain or back pain Skin/Breast: Denies: rash Neuro: Reports: weakness in extremities Psych: Denies: depression Emre/Lymph: Denies: easy bruising All/Imm: Denies: urticaria Physical Exam Const: COMMON NORMALS: no acute distress, patient oriented x3 and healthy appearing HENMT: COMMON NORMALS: normocephalic and atraumatic HEAD & SCALP: normocephalic and atraumatic Eye: COMMON NORMALS: Equal, round and reactive pupils present and EOMs intact bilaterally PUPIL: Yes Equal, round and reactive pupils present Neck/C-Spine: COMMON NORMALS: full ROM and supple Chest: COMMONS NORMALS: normal inspection of the chest and normal palpation of entire chest wall Resp: COMMON NORMALS: normal respiratory effort, No retractions, No use of accessory muscles and clear to auscultation bilaterally AUSCULTATION: clear to auscultation bilaterally Cardio: COMMON NORMALS: regular rate, regular rhythm and No murmurs present (Cardio) RATE: regular rate RHYTHM: regular rhythm GI: COMMON NORMALS: Normal to inspection, nondistended, normoactive bowel sounds present, Soft to palpation, non-tender and no masses PALPATION: Yes Soft to palpation Extremity: COMMON NORMALS: normal to inspection and full ROM Neuro: COMMON NORMALS: patient oriented x3, moves all extremities and no focal motor deficits Psych: COMMON NORMALS: mental status grossly normal, Normal thought process present and cooperative THOUGHT PROCESS: Normal thought process present Skin: COMMON NORMALS: no rashes or lesions noted and no wounds GENERAL SKIN EXAM: no rashes or lesions noted Course Vital Signs: Vital signs: Vital Signs Temperature 98.5 F 01/10/20 11:45 Pulse Rate 76 01/10/20 12:22 Respiratory Rate 18 01/10/20 12:22 Blood Pressure 104/63 01/10/20 12:22 Pulse Oximetry 98 01/10/20 12:22 MDM - GI Bleed MDM Narrative: Medical decision making narrative: Patient presents here with a GI bleed that is chronic in nature. Patient's hemoglobin here is 10.6 which is actually higher than it is typically. She has no signs of large amount of bleeding here and her blood pressures have been stable and she feels much improved. We will place her on Protonix and Zofran. She is to follow-up with PCP in 2 to 4 days and she is to return if worsening. She understands agrees to plan. Lab Data: Labs: Lab Results 01/10/20 01/10/20 01/10/20 Range/Units 12:08 12:08 12:08 WBC 9.9 (4.0-10.0) 10^3/ uL RBC 3.99 L (4.1-5.3) 10^6/u L Hgb 10.6 L (11.5-15.3) g/dL Hct 34.7 L (37.0-47.0) % MCV 87.0 (81-99) fL MCH 26.6 L (28.0-34.0) pg MCHC 30.5 (30.0-36.0) g/dL RDW 21.7 H (12.1-15.1) % Plt Count 319 (130-400) 10^3/c mm MPV 9.4 (7.4-10.4) fL Neut % (Auto) 78.8 % Lymph % (Auto) 10.7 % [place] % (Auto) 6.9 % Eos % (Auto) 2.8 % Baso % (Auto) 0.4 % Neut # (Auto) 7.82 H (1.8-7.7) 10^3/u L Lymph # (Auto) 1.1 (0.8-4.8) 10^3/u L [place] # (Auto) 0.7 (0.2-0.9) 10^3/u L Eos # (Auto) 0.3 (0.0-0.8) 10^3/u L Baso # (Auto) 0.0 (0.0-0.1) 10^3/u L Nucleated RBC % (a uto) 0 % Nucleated RBCs # 0.0 /100WBC PT 13.60 (12.1-14.9) SECO NDS INR 1.01 (0.8-1.2) Sodium 140 (136-145) mmol/L Potassium 3.3 L (3.5-5.1) mmol/L Chloride 108 H (98-107) mmol/L Carbon Dioxide 20 L (22-29) mmol/L Anion Gap 15.3 (5-19) BUN 14 (8-23) mg/dL Creatinine 1.0 H (0.5-0.9) mg/dL GFR Calculation Not Reportable Glucose 93 (65-115) mg/dL Calculated Osmolal ity 290 (285-295) mOsm/k g Calcium 8.6 (8.5-10.5) mg/dL Total Bilirubin 0.3 (0.15-1.2) mg/dL AST 13 (0-32) U/L ALT 6 (0-33) U/L Alkaline Phosphata se 126 H (35-105) IU/L Total Protein 6.2 L (6.6-8.7) g/dL Albumin 3.7 (3.5-5.2) g/dL Globulin 2.5 (1.3-4.6) g/dL Imaging Data^: CXR: Radiologist's impression: [address] [id number] XRay Report Signed Patient: Pauline Castle Unit #: [id number] : 1940 Age/Sex: 79 / F ADM Date: 01/10/20 Loc: ER Room/Bed: Attending Dr: Ordering Provider/Ordering MD: Chapincito Davalos MD Date of Service: 01/10/20 Procedure(s): XR chest 1V portable [id number] Accession Number(s): [id number] Report Number: [id number] WS: [id number] XR chest 1V portable [id number] REASON FOR EXAM: weakness FINDINGS: The chest is unchanged compared to previous examination of 01/20/2019. There are bilateral calcified breast prostheses. There is a very large hiatal hernia. There is mild cardiomegaly. No active pulmonary parenchymal or pleural disease is identified. No significant abnormality of the bony thorax. XR/XR chest 1V portable [id number] IMPRESSION: Stable chest as above with no acute abnormality identified. Discharge Plan Discharge Patient Disposition: Home Clinical Impression: GI bleed Qualifiers: GI bleed type/associated pathology: unspecified gastrointestinal hemorrhage type Qualified Code(s): K92.2 - Gastrointestinal hemorrhage, unspecified Condition: Stable Prescriptions: New ondansetron 4 mg tablet,disintegrating 4 mg PO Q6H PRN (Reason: nausea and vomiting) Qty: 14 RF: 0 Protonix 40 mg tablet,delayed release (DR/EC) 40 mg PO DAILY Qty: 30 RF: 0 No Action carvedilol 6.25 mg tablet 6.25 mg PO BID Qty: 180 RF: 3 Wixela Inhub 250-50 mcg/dose Blister With Device 1 inh INHALATION BID RF: 0 atorvastatin 20 mg Tablet 20 mg PO DAILY RF: 0 famotidine 40 mg Tablet 40 mg PO BID RF: 0 spironolactone 25 mg Tablet 12.5 mg PO DAILY RF: 0 levothyroxine 25 mcg Tablet 25 mcg PO DAILY RF: 0 alprazolam 0.25 mg Tablet 0.25 mg PO BID RF: 0 Dexilant 60 mg Capsule,Biphase Delayed Releas 60 mg PO DAILY RF: 0 Discharge Orders: Discharge Order (Routine); Ordered 01/10/20 Ordered By: Chapincito Davalos Referrals: Hoa Stock [Primary Care Provider] - 1-3 days Discharge Diet: Advance as tolerated Discharge Activity: Resume usual activity Patient Instructions: Gastrointestinal Bleeding (ED) Coding Level of Care Code ED Clinical Data Abstractor for [facility] Fwd Exam Comprehensive
[2020-01-10] MEDS: pantoprazole 40 mg SDV 80 MG IVP (12:18)
[2020-01-10 12:19] LABS: Basophils % 0.4 %; Eosinophils # 0.3 10^3/uL (0.0-0.8); Eosinophils % 2.8 %; Hematocrit 34.7 % (37.0-47.0); Hemoglobin 10.6 g/dL (11.5-15.3); Lymphocytes # 1.1 10^3/uL (0.8-4.8); Lymphocytes % 10.7 %; Mean Corpuscular HGB Conc 30.5 g/dL (30.0-36.0); Mean Corpuscular Hemoglobin 26.6 pg (28.0-34.0); Mean Platelet Volume 9.4 fL (7.4-10.4); Monocytes # 0.7 10^3/uL (0.2-0.9); Monocytes % 6.9 %; Neutrophils # 7.82 10^3/uL (1.8-7.7); Neutrophils % 78.8 %; Nucleated Red Blood Cells % 0 %; Platelet Count 319 10^3/cmm (130-400); Red Blood Count 3.99 10^6/uL (4.1-5.3); Red Cell Distribution Width 21.7 % (12.1-15.1); White Blood Count 9.9 10^3/uL (4.0-10.0)
[2020-01-10 12:22] VITALS: BP 104/63; PULSE 76; RESP 18; O2SAT 98
[2020-01-10 12:37] LABS: Alanine Aminotransferase 6 U/L (0-33); Albumin Level 3.7 g/dL (3.5-5.2); Alkaline Phosphatase 126 IU/L (35-105); Anion Gap 15.3 (5-19); Aspartate Amino Transferase 13 U/L (0-32); Blood Urea Nitrogen 14 mg/dL (8-23); Calcium 8.6 mg/dL (8.5-10.5); Carbon Dioxide 20 mmol/L (22-29); Chloride 108 mmol/L (98-107); Globulin 2.5 g/dL (1.3-4.6); Glucose 93 mg/dL (65-115); Osmolality Calculated 290 mOsm/kg (285-295); Potassium 3.3 mmol/L (3.5-5.1); Sodium 140 mmol/L (136-145); Total Bilirubin 0.3 mg/dL (0.15-1.2); Total Protein 6.2 g/dL (6.6-8.7)
[2020-01-10 12:42] LABS: INR 1.01 (0.8-1.2)
[2020-01-10] MEDS: ondansetron 2 mg/ML SDV 2 mL 4 MG IVP (13:03)
[2020-01-10 13:50] VITALS: BP 124/68; PULSE 74; RESP 18; O2SAT 95
== END 2020-01-10 13:35 | disposition home or self-care (01) ==
LOC: ER 13:34
PROVIDERS: Emergency Provider Emergency Medicine; PCP Nurse Practitioner Family
DX: K92.2 Gastrointestinal hemorrhage, unspecified (principal)
CPT/HCPCS: 12345; 71045; 80053; 85025; 85610; 93005; 96374; 96375; 99283; C9113; J2405

== ENCOUNTER 2020-01-18 08:10 | Outpatient (CLI) | payer MEDICARE, MEDICAID, SELFPAY ==
[2020-01-18 10:33] LABS: Basophils % 0.5 %; Eosinophils # 0.6 10^3/uL (0.0-0.8); Eosinophils % 7.1 %; Hematocrit 34.6 % (37.0-47.0); Hemoglobin 10.5 g/dL (11.5-15.3); Lymphocytes # 1.1 10^3/uL (0.8-4.8); Lymphocytes % 12.9 %; Mean Corpuscular HGB Conc 30.3 g/dL (30.0-36.0); Mean Corpuscular Hemoglobin 26.9 pg (28.0-34.0); Mean Corpuscular Volume 88.7 fL (81-99); Mean Platelet Volume 9.7 fL (7.4-10.4); Monocytes # 0.7 10^3/uL (0.2-0.9); Neutrophils # 5.66 10^3/uL (1.8-7.7); Neutrophils % 69.6 %; Nucleated Red Blood Cells % 0 %; Platelet Count 317 10^3/cmm (130-400); Red Cell Distribution Width 21.2 % (12.1-15.1); White Blood Count 8.1 10^3/uL (4.0-10.0)
[2020-01-18 10:57] LABS: Ferritin 610 ng/mL (15-150); Iron 66 ug/dL (37-145); Percent Saturation 30.4 % (20-50); Total Iron Binding Capacity 217 mcg/dl; Unsaturated Iron Binding 151 ug/dL (112-347)
== END 2020-01-18 08:11 | disposition home or self-care (01) ==
LOC: ONCMED 10:25
PROVIDERS: PCP Nurse Practitioner Family; Visit Provider Internal Medicine Medical Oncology
DX: D50.9 Iron deficiency anemia, unspecified (principal)
CPT/HCPCS: 36415; 82728; 83540; 83550; 85025

== ENCOUNTER 2020-01-22 10:10 | Outpatient (CLI) | payer MEDICARE, MEDICAID, SELFPAY ==
--- NOTE | 2020-01-25 06:38 | ONC FU_ITS ---
Dr. Iverson Patient Follow-Up Note Patient: Pauline Castle Unit #: [id number]: [id number] Dicatated By: Freedom Iverson M.D.Date of Visit:Jan 22, 2020 Telehealth Progress Note The patient has been informed that the visit may not be secure and acknowledged the information. I have explained the option of participating in a telephone or video visit during the [facility]-[address] [place] [address] emergency to the patient. After being given an opportunity to ask questions about and discuss this type of visit, the patient verbally consented to proceeding with the telephone/video visit. the patient understands that this service replaces an office visit and they may be billed and /or responsible for any applicable copayments Chief Complaint: Anemia. History of Present Illness: This is an 79 year-old woman with iron deficiency anemia. She has a history of hypertension, dyslipidemia, and coronary artery disease. She underwent coronary angioplasty/stent placement in 2009. Sometime after that she had an episode of GI bleeding, which apparently was confirmed by endoscopy to be a bleeding ulcer. I had seen her initially in July 2013 after she had been found to be severely anemic. She felt better following a transfusion of packed red blood cells, but her followup CBCs were still showing significant anemia. As of June 2013 her hemoglobin was still low at 6.2 g with hematocrit 27%. The red cell indices were hypochromic/microcytic with MCV 27 and MCH 64. White blood cell count normal at 5900 and platelet count was normal at 324,000. Serum iron was low at 11 mcg/dL. She had started oral iron supplementation with ferrous sulfate, but she had difficulty tolerating it due to nausea. I did opt to give her parenteral iron replacement with Venofer, which she completed in September 2013 to a total dose of 1800 mg. Her follow-up CBC in October 2013 showed hemoglobin up to 15 g with normal red cell indices. In August 2015 she was admitted to the hospital with another acute GI bleed. Her upper GI endoscopy showed only mild patchy gastritis. There was no evidence of ongoing mucosal bleeding. The duodenum appeared unremarkable. She was seen by Aundrea Zhang on 05/13/2016 with complaints of fatigue and cough. She was moderately anemic with hemoglobin 9.6 g and hematocrit 30%. The red cell indices were hypochromic/microcytic with MCV 68 and MCH 21. The white blood cell count was slightly elevated at 11,300 and the platelet count also was mildly elevated at 540,000. Transferrin saturation at that time was 5% and ferritin was low at 7.6 ng/mL. She was seen in the emergency room in [place] on 05/19/2016. At that time she also was found to have low potassium at 2.9 mmol/L. I had seen her for a follow-up visit on 05/21/2016. She was then given parenteral iron replacement with infusions of Injectafer on 05/21/2016 and on 05/28/2016. Her medical illnesses include hypertension, dyslipidemia, coronary artery disease, and GERD/peptic ulcer disease. Her records indicate that she also has chronic diastolic heart failure. She has history of smoking 1 pack of cigarettes daily for 40 years. She quit smoking in 2009. INTERIM HISTORY: She was seen for a follow-up visit on 12/24/2019. She had been in the hospital again with GI bleeding, presumably secondary to Plavix. Her colonoscopy reportedly showed a polyp which was only partially excised. At the time of that visit she was still anemic with hemoglobin 9.1 g. Her serum iron studies show transferrin saturation 5.5% and her ferritin was low at 6 ng/mL, consistent with iron deficiency. She was given parenteral iron replacement with 2 infusions of Injectafer. She is seen for a follow-up visit by Telehealth. Her main complaint is that her left hip is not getting better. She complains that it is sore and stiff and generally achy. She has limited activity. ECOG score is 2. She says her appetite is not there, but she does eat some. She has not had fever or night sweats. She still has shortness of breath with effort, but her breathing is somewhat better. She has very little cough. She says her stools are kind of loose, but not dark. She has frequent urination. She currently is not having any other joint or bone pain. She does report having some pain in the left side of her face. She has no focal neurologic symptoms. She has anxiety, which she manages adequately with alprazolam. Medications: Acetaminophen 1 Tablet (of 500 mg) Oral daily, Advair Diskus 1 Puff(s) (of 250-50 mcg/dose) Aerosol Powder, Breath Activated Inhalation b.i.d., ALPRAZolam 1 (0.25 mg) Tablet Oral daily PRN, Atorvastatin Calcium 1 Tablet (of 20 mg) Oral at bedtime, Carvedilol 1 Tablet (of 6.25 mg) Oral b.i.d., Cetirizine HCl 1 Tablet (of 10 mg) Oral daily PRN, Flonase 2 [place](s) (of 50 mcg/act) Suspension Nasal daily, Imodium A-D 1 Tablet (of 2 mg) Oral PRN, Levo-T 1 (25 mcg) Tablet Oral daily, Nitroglycerin 1 Tablet (of 0.4 mg) Tablet, sublingual Sublingual PRN, Pantoprazole Sodium 1 (40 mg) Tablet, enteric coated Oral b.i.d., Spironolactone 0.5 Tablet (of 25 mg) Oral daily, traZODone HCl 1 Tablet (of 50 mg) Oral at bedtime PRN Allergies: Phenergan Review of Systems: Constitutional - She has had some improvement in her energy, but not a lot. Her activity is still limited. She says her appetite is just not there. She is eating some. She is on a restricted diet. She does not fever or night sweats. ECOG score is 2, ENMT - She says her sinus symptoms are very bad. No mouth sores. No sore throat or difficulty swallowing, Hematologic/Lymphatic - No abnormal bruising or bleeding, Respiratory - She is short of breath with activity. She has very little cough. No pleuritic pain or hemoptysis, Cardiovascular - No angina pain. No palpitations, Gastrointestinal - She sometimes has nausea. Her acid reflux is managed with diet. Her bowels are sometimes kind of loose, but not dark. No blood in the stool or black stools, Genitourinary (F) - No dysuria or hematuria. She has frequent urination. No urgency or incontinence, Musculoskeletal - Her left hip has been sore and stiff, and it sometimes aches. She has no other joint or bone pain, Integumentary - No skin rash, Neurologic - She has some pain on the left side of her face. No dizziness. No numbness or tingling. No other focal neurologic symptoms, Psychiatric - She has some anxiety. It is managed adequately with alprazolam as needed. No insomnia. Physical Examination: Constitutional - She appears somewhat weak generally, but not acutely ill. Lab/Imaging: Test performed on Jan 18, 2020 08:10 Ferritin 610 ng/mL Iron 66 mcg/dL Iron Binding Capacity (TIBC) 217 mcg/dl % Iron Saturation 30.4 % UIBC 151 mcg/dL WBC 8.1 10 3/uL RBC 3.90 10 6/uL HGB 10.5 g/dL HCT 34.6 % MCV 88.7 fL MCH 26.9 pg MCHC 30.3 g/dL RDW 21.2 % Platelet Count 317 10 3/cmm MPV 9.7 fL Neutrophils 5.66 10 3/uL Lymphocytes 1.1 10 3/uL Monocytes 0.7 10 3/uL Eosinophils 0.6 10 3/uL Basophils 0.0 10 3/uL Neutrophil % 69.6 % Lymphocyte % 12.9 % Monocyte % 9.0 % Eosinophil % 7.1 % Basophils % 0.5 % NRBC % 0 % Impression: 1. Patient with recurrent iron deficiency anemia, presumably due to GI blood loss, though an actual source of blood loss was not determined. She has had poor tolerance for oral iron. Her anemia previously had corrected following a course of parenteral iron replacement with Venofer, completed in September 2013. Her other medical illnesses include: 2. Hypertension. 3. Dyslipidemia. 4. Coronary artery disease with previous angioplasty/stent placement. 5. She has a prior history of peptic ulcer disease with documented bleeding ulcer. 6. She has chronic anxiety. She was given parenteral iron replacement with infusions of Injectafer on 05/21/2016 and on 05/28/2016. Initially she did show some symptomatic improvement with it, but only for a short time. She was then lost to follow-up. She was seen again in December 2019 with recurrence of iron deficiency anemia. She was treated with 2 infusions of Injectafer, which she tolerated well. At this point she remains moderately anemic with hemoglobin 10.8 g. Her transferrin saturation is normal at 30.4% and her ferritin level is increased to 610 ng/mL, so that her anemia now does not appear to be due to iron deficiency. Plan: She will be scheduled to have her laboratory studies repeated in 1 month. She will then have further evaluation as indicated. If there has not been any further improvement in her hemoglobin/hematocrit levels, I anticipate that she will need bone marrow aspiration/biopsy. Signed By: Freedom Iverson M.D. <<Signature on File>>
== END 2020-01-22 10:11 | disposition home or self-care (01) ==
LOC: ONCMED 10:10
PROVIDERS: PCP Nurse Practitioner Family; Visit Provider Internal Medicine Medical Oncology
DX: D50.9 Iron deficiency anemia, unspecified (principal); I10 Essential (primary) hypertension; E78.5 Hyperlipidemia, unspecified; I25.10 Atherosclerotic heart disease of native coronary artery without angina pectoris; F41.9 Anxiety disorder, unspecified; Z95.5 Presence of coronary angioplasty implant and graft; Z95.1 Presence of aortocoronary bypass graft; Z87.11 Personal history of peptic ulcer disease

== ENCOUNTER 2020-02-15 08:10 | Outpatient (CLI) | payer MEDICARE, MEDICAID, SELFPAY ==
[2020-02-15 12:24] LABS: Basophils # 0.1 10^3/uL (0.0-0.1); Basophils % 0.9 %; Eosinophils # 0.6 10^3/uL (0.0-0.8); Eosinophils % 9.5 %; Hemoglobin 11.4 g/dL (11.5-15.3); Lymphocytes # 1.3 10^3/uL (0.8-4.8); Lymphocytes % 19.4 %; Mean Corpuscular HGB Conc 30.8 g/dL (30.0-36.0); Mean Corpuscular Hemoglobin 27.4 pg (28.0-34.0); Mean Corpuscular Volume 88.9 fL (81-99); Mean Platelet Volume 9.7 fL (7.4-10.4); Monocytes # 0.6 10^3/uL (0.2-0.9); Monocytes % 9.5 %; Neutrophils # 3.94 10^3/uL (1.8-7.7); Neutrophils % 60.4 %; Nucleated Red Blood Cells % 0 %; Platelet Count 262 10^3/cmm (130-400); Red Blood Count 4.16 10^6/uL (4.1-5.3); Red Cell Distribution Width 18.4 % (12.1-15.1); White Blood Count 6.5 10^3/uL (4.0-10.0)
[2020-02-15 13:00] LABS: Erythrocyte Sedimentation Rate 10 mm/hr (0-15)
[2020-02-15 13:14] LABS: Anion Gap 13.6 (5-19); Blood Urea Nitrogen 18 mg/dL (8-23); Calcium 8.9 mg/dL (8.5-10.5); Carbon Dioxide 26 mmol/L (22-29); Chloride 106 mmol/L (98-107); Glucose 67 mg/dL (65-115); Iron 79 ug/dL (37-145); Osmolality Calculated 294 mOsm/kg (285-295); Potassium 3.6 mmol/L (3.5-5.1); Sodium 142 mmol/L (136-145)
[2020-02-15 13:15] LABS: Alanine Aminotransferase 11 U/L (0-33); Albumin Level 3.7 g/dL (3.5-5.2); Alkaline Phosphatase 106 IU/L (35-105); Aspartate Amino Transferase 13 U/L (0-32); Ferritin 313 ng/mL (15-150); Globulin 2.1 g/dL (1.3-4.6); Lactate Dehydrogenase 161 U/L (135-214); Percent Saturation 31.8 % (20-50); Total Bilirubin 0.3 mg/dL (0.15-1.2); Total Iron Binding Capacity 248 mcg/dl; Total Protein 5.8 g/dL (6.6-8.7); Unsaturated Iron Binding 169 ug/dL (112-347); Vitamin B12 239 pg/mL (232-1245)
[2020-02-16 07:43] LABS: PROTEIN, TOTAL 5.6 g/dL (6.1-8.1)
[2020-02-18 15:22] LABS: ALBUMIN 3.3 g/dL (3.8-4.8); ALPHA 1 GLOBULIN 0.3 g/dL (0.2-0.3); ALPHA 2 GLOBULIN 0.8 g/dL (0.5-0.9); BETA 1 GLOBULIN 0.4 g/dL (0.4-0.6); BETA 2 GLOBULIN 0.3 g/dL (0.2-0.5); GAMMA GLOBULIN 0.5 g/dL (0.8-1.7)
[2020-02-19 14:03] LABS: KAPPA LIGHT CHAIN, FREE, SERUM 20.7 mg/L (3.3-19.4); KAPPA/LAMBDA LIGHT CHAINS FREE 1.92 (0.26-1.65); LAMBDA LIGHT CHAIN, FREE, SERU 10.8 mg/L (5.7-26.3)
== END 2020-02-15 08:11 | disposition home or self-care (01) ==
LOC: ONCMED 12:00
PROVIDERS: PCP Nurse Practitioner Family; Visit Provider Internal Medicine Medical Oncology
DX: D64.9 Anemia, unspecified (principal)
CPT/HCPCS: 80053; 82607; 82728; 83010; 83540; 83550; 83615; 83883; 84155; 84165; 85025; 85045; 85651

== ENCOUNTER 2020-04-06 15:42 | Emergency (ER) | payer MEDICARE, MEDICAID, SELFPAY ==
[2020-04-06 15:49] VITALS: BP 124/75; PULSE 95; RESP 17; O2SAT 95; BMI 24.0
--- NOTE | 2020-04-06 15:56 | W.ED.GIBLEED ---
HPI - GI Bleed General: Chief complaint: GI Bleed Stated complaint: LOWER GI BLEED Time Seen by Provider: 04/06/20 15:44 Source: patient and EMS Mode of arrival: EMS Limitations: no limitations History of Present Illness: HPI Narrative: 79-year-old female who states that she has had dark tarry stools the last 3 days. States she is also had some weakness. She states she has had GI bleeds in the past and has had to have transfusions.. She denies any abdominal pain. She denies any fever. She denies any worsening or improving factors. Associated symptoms: Denies chills, easy bruising, fever(s), headache(s) or rash Review of Systems Const: Denies: fever(s), chills, body aches or change in appetite Eyes: Denies: blurry vision or eye discomfort ENMT: Denies: throat pain or dental pain Card: Denies: chest pain Resp: Denies: dyspnea GI: Reports: melena : Denies: dysuria Musc: Denies: neck pain or back pain Skin/Breast: Denies: rash Neuro: Denies: headache(s) Psych: Denies: depression Emre/Lymph: Denies: easy bruising All/Imm: Denies: urticaria Physical Exam Const: COMMON NORMALS: no acute distress, patient oriented x3 and healthy appearing HENMT: COMMON NORMALS: normocephalic and atraumatic HEAD & SCALP: normocephalic and atraumatic Eye: COMMON NORMALS: Equal, round and reactive pupils present and EOMs intact bilaterally PUPIL: Yes Equal, round and reactive pupils present Neck/C-Spine: COMMON NORMALS: full ROM and supple Chest: COMMONS NORMALS: normal inspection of the chest and normal palpation of entire chest wall Resp: COMMON NORMALS: normal respiratory effort, No retractions, No use of accessory muscles and clear to auscultation bilaterally AUSCULTATION: clear to auscultation bilaterally Cardio: COMMON NORMALS: regular rate, regular rhythm and No murmurs present (Cardio) RATE: regular rate RHYTHM: regular rhythm GI: COMMON NORMALS: Normal to inspection, nondistended, normoactive bowel sounds present, Soft to palpation, non-tender and no masses PALPATION: Yes Soft to palpation Extremity: COMMON NORMALS: normal to inspection and full ROM Neuro: COMMON NORMALS: patient oriented x3, moves all extremities and no focal motor deficits Psych: COMMON NORMALS: mental status grossly normal, Normal thought process present and cooperative THOUGHT PROCESS: Normal thought process present Skin: COMMON NORMALS: no rashes or lesions noted and no wounds GENERAL SKIN EXAM: no rashes or lesions noted Course Vital Signs: Vital signs: Vital Signs Pulse Rate 95 04/06/20 15:49 Respiratory Rate 17 04/06/20 15:49 Blood Pressure 124/75 04/06/20 15:49 Pulse Oximetry 95 04/06/20 15:49 MDM - GI Bleed MDM Narrative: Medical decision making narrative: Patient presents here with an upper GI bleed that is since resolved. Rectal exam here showed brown stool that was Hemoccult negative. Patient hemoglobin here is stable and her blood pressures been stable. She was able ambulate without any difficulty. I informed her she does have blood again in her stool she is to return immediately. She is to follow-up with her PCP in 3 to 5 days. She understands and agrees to the plan. Lab Data: Labs: Lab Results 04/06/20 04/06/20 04/06/20 Range/Units 14:52 14:52 14:52 WBC 8.9 (4.0-10.0) 10^3/ uL RBC 4.49 (4.1-5.3) 10^6/u L Hgb 13.0 (11.5-15.3) g/dL Hct 39.8 (37.0-47.0) % MCV 88.6 (81-99) fL MCH 29.0 (28.0-34.0) pg MCHC 32.7 (30.0-36.0) g/dL RDW 13.3 (12.1-15.1) % Plt Count 287 (130-400) 10^3/c mm MPV 10.2 (7.4-10.4) fL Neut % (Auto) 67.6 % Lymph % (Auto) 18.5 % [place] % (Auto) 7.9 % Eos % (Auto) 4.9 % Baso % (Auto) 0.4 % Neut # (Auto) 6.04 (1.8-7.7) 10^3/u L Lymph # (Auto) 1.7 (0.8-4.8) 10^3/u L [place] # (Auto) 0.7 (0.2-0.9) 10^3/u L Eos # (Auto) 0.4 (0.0-0.8) 10^3/u L Baso # (Auto) 0.0 (0.0-0.1) 10^3/u L Nucleated RBC % (a uto) 0 % Nucleated RBCs # 0.0 /100WBC PT 12.90 (12.1-14.9) SECO NDS INR 0.94 (0.8-1.2) Sodium 140 (136-145) mmol/L Potassium 4.0 (3.5-5.1) mmol/L Chloride 102 (98-107) mmol/L Carbon Dioxide 27 (22-29) mmol/L Anion Gap 15.0 (5-19) BUN 35 H (8-23) mg/dL Creatinine 1.2 H (0.5-0.9) mg/dL GFR Calculation Not Reportable Glucose 79 (65-115) mg/dL Calculated Osmolal ity 297 H (285-295) mOsm/k g Calcium 9.6 (8.5-10.5) mg/dL Total Bilirubin 0.3 (0.15-1.2) mg/dL AST 13 (0-32) U/L ALT 9 (0-33) U/L Alkaline Phosphata se 129 H (35-105) IU/L Total Protein 6.7 (6.6-8.7) g/dL Albumin 4.1 (3.5-5.2) g/dL Globulin 2.6 (1.3-4.6) g/dL Discharge Plan Discharge Patient Disposition: Home Clinical Impression: Upper gastrointestinal hemorrhage Condition: Stable Prescriptions: No Action fluticasone propion-salmeterol [Wixela Inhub] 250-50 mcg/dose Blister With Device 1 inh INHALATION BID PRN (Reason: Shortness Of Breath) RF: 0 atorvastatin 20 mg Tablet 20 mg PO DAILY@2099 RF: 0 famotidine 40 mg Tablet 40 mg PO BID@ RF: 0 spironolactone 25 mg Tablet 12.5 mg PO DAILY@ RF: 0 levothyroxine 25 mcg Tablet 25 mcg PO DAILY@ RF: 0 alprazolam 0.25 mg Tablet 0.25 mg PO BID PRN (Reason: Anxiety) RF: 0 carvedilol 6.25 mg tablet 6.25 mg PO BID@ RF: 0 ondansetron 4 mg tablet,disintegrating 4 mg PO Q6H PRN (Reason: nausea and vomiting) Qty: 14 RF: 0 Discharge Orders: Discharge ED (Routine); Ordered 04/06/20 Ordered By: Chapincito Davalos Referrals: Hoa Stock [Primary Care Provider] - 1-3 days Discharge Diet: Advance as tolerated Discharge Activity: Resume usual activity Patient Instructions: Gastrointestinal Bleeding (ED) Coding Level of Care Code ED Crew Attendant for Chg Fwd Exam Comprehensive
[2020-04-06 16:06] LABS: Basophils % 0.4 %; Eosinophils # 0.4 10^3/uL (0.0-0.8); Eosinophils % 4.9 %; Hematocrit 39.8 % (37.0-47.0); Lymphocytes # 1.7 10^3/uL (0.8-4.8); Lymphocytes % 18.5 %; Mean Corpuscular HGB Conc 32.7 g/dL (30.0-36.0); Mean Corpuscular Volume 88.6 fL (81-99); Mean Platelet Volume 10.2 fL (7.4-10.4); Monocytes # 0.7 10^3/uL (0.2-0.9); Monocytes % 7.9 %; Neutrophils # 6.04 10^3/uL (1.8-7.7); Neutrophils % 67.6 %; Nucleated Red Blood Cells % 0 %; Platelet Count 287 10^3/cmm (130-400); Red Blood Count 4.49 10^6/uL (4.1-5.3); Red Cell Distribution Width 13.3 % (12.1-15.1); White Blood Count 8.9 10^3/uL (4.0-10.0)
[2020-04-06 16:20] LABS: INR 0.94 (0.8-1.2)
[2020-04-06 16:28] LABS: Alanine Aminotransferase 9 U/L (0-33); Albumin Level 4.1 g/dL (3.5-5.2); Alkaline Phosphatase 129 IU/L (35-105); Aspartate Amino Transferase 13 U/L (0-32); Blood Urea Nitrogen 35 mg/dL (8-23); Calcium 9.6 mg/dL (8.5-10.5); Carbon Dioxide 27 mmol/L (22-29); Chloride 102 mmol/L (98-107); Globulin 2.6 g/dL (1.3-4.6); Glucose 79 mg/dL (65-115); Osmolality Calculated 297 mOsm/kg (285-295); Sodium 140 mmol/L (136-145); Total Bilirubin 0.3 mg/dL (0.15-1.2); Total Protein 6.7 g/dL (6.6-8.7)
== END 2020-04-06 17:33 | disposition home or self-care (01) ==
PROVIDERS: Emergency Provider Emergency Medicine; PCP Nurse Practitioner Family
DX: K92.2 Gastrointestinal hemorrhage, unspecified (principal)
CPT/HCPCS: 12345; 80053; 85025; 85610; 99282

== ENCOUNTER 2020-04-15 16:10 | Outpatient (CLI) | payer MEDICARE, MEDICAID, SELFPAY ==
[2020-04-15 17:37] LABS: Basophils # 0.1 10^3/uL (0.0-0.1); Basophils % 0.5 %; Eosinophils # 0.4 10^3/uL (0.0-0.8); Eosinophils % 4.1 %; Hematocrit 35.8 % (37.0-47.0); Hemoglobin 11.3 g/dL (11.5-15.3); Lymphocytes # 1.4 10^3/uL (0.8-4.8); Lymphocytes % 12.9 %; Mean Corpuscular HGB Conc 31.6 g/dL (30.0-36.0); Mean Platelet Volume 9.5 fL (7.4-10.4); Monocytes # 0.6 10^3/uL (0.2-0.9); Monocytes % 5.6 %; Neutrophils # 8.14 10^3/uL (1.8-7.7); Neutrophils % 76.2 %; Nucleated Red Blood Cells % 0 %; Platelet Count 349 10^3/cmm (130-400); Red Blood Count 3.89 10^6/uL (4.1-5.3); Red Cell Distribution Width 14.3 % (12.1-15.1); White Blood Count 10.7 10^3/uL (4.0-10.0)
[2020-04-15 18:00] LABS: Alanine Aminotransferase 11 U/L (0-33); Alkaline Phosphatase 119 IU/L (35-105); Anion Gap 14.1 (5-19); Aspartate Amino Transferase 15 U/L (0-32); Blood Urea Nitrogen 27 mg/dL (8-23); Calcium 9.3 mg/dL (8.5-10.5); Carbon Dioxide 25 mmol/L (22-29); Chloride 105 mmol/L (98-107); Ferritin 167 ng/mL (15-150); Globulin 2.5 g/dL (1.3-4.6); Glucose 88 mg/dL (65-115); Iron 84 ug/dL (37-145); Osmolality Calculated 295 mOsm/kg (285-295); Percent Saturation 27.7 % (20-50); Potassium 4.1 mmol/L (3.5-5.1); Sodium 140 mmol/L (136-145); Total Bilirubin 0.2 mg/dL (0.15-1.2); Total Iron Binding Capacity 303 mcg/dl; Total Protein 6.5 g/dL (6.6-8.7); Unsaturated Iron Binding 219 ug/dL (112-347)
== END 2020-04-15 16:11 | disposition home or self-care (01) ==
LOC: ONCMED 17:49
PROVIDERS: PCP Nurse Practitioner Family; Visit Provider Internal Medicine Medical Oncology
DX: D50.9 Iron deficiency anemia, unspecified (principal)
CPT/HCPCS: 80053; 82728; 83540; 83550; 85025

== ENCOUNTER 2020-09-01 14:30 | Outpatient (CLI) | payer MEDICARE, MEDICAID, SELFPAY ==
[2020-09-01 15:18] LABS: Basophils # 0.1 10^3/uL (0.0-0.1); Basophils % 0.5 %; Eosinophils # 0.4 10^3/uL (0.0-0.8); Eosinophils % 3.9 %; Hematocrit 39.4 % (37.0-47.0); Hemoglobin 12.3 g/dL (11.5-15.3); Lymphocytes # 1.6 10^3/uL (0.8-4.8); Lymphocytes % 15.3 %; Mean Corpuscular HGB Conc 31.2 g/dL (30.0-36.0); Mean Corpuscular Volume 83.3 fL (81-99); Mean Platelet Volume 8.9 fL (7.4-10.4); Monocytes % 9.5 %; Neutrophils # 7.13 10^3/uL (1.8-7.7); Neutrophils % 69.4 %; Nucleated Red Blood Cells % 0 %; Platelet Count 376 10^3/cmm (130-400); Red Blood Count 4.73 10^6/uL (4.1-5.3); Red Cell Distribution Width 15.2 % (12.1-15.1); White Blood Count 10.3 10^3/uL (4.0-10.0)
[2020-09-01 15:43] LABS: Alanine Aminotransferase 7 U/L (0-33); Albumin Level 3.8 g/dL (3.5-5.2); Alkaline Phosphatase 131 IU/L (35-105); Anion Gap 15.5 (5-19); Aspartate Amino Transferase 13 U/L (0-32); Blood Urea Nitrogen 22 mg/dL (8-23); Calcium 8.9 mg/dL (8.5-10.5); Carbon Dioxide 23 mmol/L (22-29); Chloride 104 mmol/L (98-107); Ferritin 24 ng/mL (15-150); Globulin 2.8 g/dL (1.3-4.6); Glucose 84 mg/dL (65-115); Iron 40 ug/dL (37-145); Osmolality Calculated 289 mOsm/kg (285-295); Potassium 4.5 mmol/L (3.5-5.1); Sodium 138 mmol/L (136-145); Total Bilirubin 0.3 mg/dL (0.15-1.2); Total Iron Binding Capacity 331 mcg/dl; Total Protein 6.6 g/dL (6.6-8.7); Unsaturated Iron Binding 291 ug/dL (112-347)
--- NOTE | 2020-09-05 12:34 | ONC FU_ITS ---
Dr. Iverson Patient Follow-Up Note Patient: Pauline Castle Unit #: [id number]: 1940 Dicatated By: Freedom Iverson M.D.Date of Visit:Sep 01, 2020 Onc Med Follow-up/Prog Note Chief Complaint: Anemia. History of Present Illness: This is an 79 year-old woman with iron deficiency anemia. She has a history of hypertension, dyslipidemia, and coronary artery disease. She underwent coronary angioplasty/stent placement in 2009. Sometime after that she had an episode of GI bleeding, which apparently was confirmed by endoscopy to be a bleeding ulcer. I had seen her initially in July 2013 after she had been found to be severely anemic. She felt better following a transfusion of packed red blood cells, but her followup CBCs were still showing significant anemia. As of June 2013 her hemoglobin was still low at 6.2 g with hematocrit 27%. The red cell indices were hypochromic/microcytic with MCV 27 and MCH 64. White blood cell count normal at 5900 and platelet count was normal at 324,000. Serum iron was low at 11 mcg/dL. She had started oral iron supplementation with ferrous sulfate, but she had difficulty tolerating it due to nausea. I did opt to give her parenteral iron replacement with Venofer, which she completed in September 2013 to a total dose of 1800 mg. Her follow-up CBC in October 2013 showed hemoglobin up to 15 g with normal red cell indices. In August 2015 she was admitted to the hospital with another acute GI bleed. Her upper GI endoscopy showed only mild patchy gastritis. There was no evidence of ongoing mucosal bleeding. The duodenum appeared unremarkable. She was seen by Aundrea Zhang on 05/13/2016 with complaints of fatigue and cough. She was moderately anemic with hemoglobin 9.6 g and hematocrit 30%. The red cell indices were hypochromic/microcytic with MCV 68 and MCH 21. The white blood cell count was slightly elevated at 11,300 and the platelet count also was mildly elevated at 540,000. Transferrin saturation at that time was 5% and ferritin was low at 7.6 ng/mL. She was seen in the emergency room in [place] on 05/19/2016. At that time she also was found to have low potassium at 2.9 mmol/L. I had seen her for a follow-up visit on 05/21/2016. She was then given parenteral iron replacement with infusions of Injectafer on 05/21/2016 and on 05/28/2016. Her medical illnesses include hypertension, dyslipidemia, coronary artery disease, and GERD/peptic ulcer disease. Her records indicate that she also has chronic diastolic heart failure. She has history of smoking 1 pack of cigarettes daily for 40 years. She quit smoking in 2009. INTERIM HISTORY: She was seen for a follow-up visit on 12/24/2019. She had been in the hospital again with GI bleeding, presumably secondary to Plavix. Her colonoscopy reportedly showed a polyp which was only partially excised. At the time of that visit she was still anemic with hemoglobin 9.1 g. Her serum iron studies show transferrin saturation 5.5% and her ferritin was low at 6 ng/mL, consistent with iron deficiency. She was given parenteral iron replacement with 2 infusions of Injectafer. During initial follow-up she remained mildly anemic with hemoglobin in the range of 10 to 11 g. She is seen for a follow-up visit. She continues to complain that she has no energy. Her activity is very limited, and she has to make herself do things. ECOG score is 2. She complains that she has no appetite, but her weight is stable. She has not had fever or night sweats. She has sinus drainage and she has cough productive of clear sputum. She is short of breath with activity. She does not complain of chest pain per se, but she does report having a catch in her left lower chest area. She also has been having palpitations (flip-flops), and she currently is on a registered nurse cardiac telemetry. She currently has no GI complaints. She has not had any more black stools since she has been on Protonix. Bladder function remains adequate. She has joint pain, mainly in her hands and in her left hip. She does not complain of headache. She sometimes has dizziness. She has no numbness/paresthesia or other focal neurologic symptoms. Medications: Acetaminophen 1 Tablet (of 500 mg) Oral daily, Advair Diskus 1 Puff(s) (of 250-50 mcg/dose) Aerosol Powder, Breath Activated Inhalation b.i.d., ALPRAZolam 1 (0.25 mg) Tablet Oral daily PRN, Atorvastatin Calcium 1 Tablet (of 20 mg) Oral at bedtime, Carvedilol 1 Tablet (of 6.25 mg) Oral b.i.d., Cetirizine HCl 1 Tablet (of 10 mg) Oral daily PRN, Flonase 2 [place](s) (of 50 mcg/act) Suspension Nasal daily, Imodium A-D 1 Tablet (of 2 mg) Oral PRN, Levo-T 1 (25 mcg) Tablet Oral daily, Nitroglycerin 1 Tablet (of 0.4 mg) Tablet, sublingual Sublingual PRN, Pantoprazole Sodium 1 (40 mg) Tablet, enteric coated Oral b.i.d., Spironolactone 0.5 Tablet (of 25 mg) Oral daily, traZODone HCl 1 Tablet (of 50 mg) Oral at bedtime PRN Allergies: Phenergan Vital Signs: Performed on Sep 01, 2020 15:33 Height - 59.00 in Weight - 122.8 lbs (HIGH) BSA - 1.50 sq.m BMI - 24.80 Temperature - 97.4 F (LOW) Pulse - 80 /min Respiration - 18 /min BP - 148/79 mm(hg) (HIGH) O2 Sat - 97 % Pain - 0 Fatigue - 9 Physical Examination: Constitutional - She looks pretty good generally, Eyes - Sclerae nonicteric. Conjunctivae clear, ENMT - No lesions noted in the oral cavity, Hematologic/Lymphatic - No cervical, clavicular, or axillary adenopathy, Respiratory - Lungs are clear with some decrease in air movement bilaterally, Cardiovascular - Heart rhythm is regular. There is no murmur, gallop, or rub noted, Abdomen - Soft. Liver and spleen are not enlarged. There is no abdominal mass or ascites noted and there is no inguinal adenopathy, Extremities - No edema. Dorsalis pedis pulses are palpable bilaterally. There are scattered purpuric lesions, Integumentary - There is a slightly raised, roughly textured skin lesion on the left cheek measuring 1.0 x 0.6 cm, Neurologic - No focal neurologic deficits noted. Lab/Imaging: Test performed on Sep 01, 2020 15:01 Ferritin 24 ng/mL Iron 40 mcg/dL Sodium 138 mmol/L Iron Binding Capacity (TIBC) 331 mcg/dl Potassium 4.5 mmol/L % Iron Saturation 12.0 % Chloride 104 mmol/L CO2 23 mmol/L UIBC 291 mcg/dL Anion Gap 15.5 BUN 22 mg/dL Creatinine 1.5 mg/dL Cr Clearance (Est) 25.8700 mL/min Glucose 84 mg/dL Osmolality - Calculated 289 mOsm/kg Calcium 8.9 mg/dL Protein, Total 6.6 g/dL Albumin 3.8 g/dL Globulin 2.8 g/dL Bilirubin, Total 0.3 mg/dL ALT (SGPT) 7 U/L AST (SGOT) 13 U/L Alkaline Phosphatase 131 IU/L WBC 10.3 10 3/uL RBC 4.73 10 6/uL HGB 12.3 g/dL HCT 39.4 % MCV 83.3 fL MCH 26.0 pg MCHC 31.2 g/dL RDW 15.2 % Platelet Count 376 10 3/cmm MPV 8.9 fL Neutrophils 7.13 10 3/uL Lymphocytes 1.6 10 3/uL Monocytes 1.0 10 3/uL Eosinophils 0.4 10 3/uL Basophils 0.1 10 3/uL Neutrophil % 69.4 % Lymphocyte % 15.3 % Monocyte % 9.5 % Eosinophil % 3.9 % Basophils % 0.5 % NRBC % 0 % Problem List: 1. Patient with recurrent iron deficiency anemia, presumably due to GI blood loss, though an actual source of blood loss was not determined. She has had poor tolerance for oral iron. Her anemia previously had corrected following a course of parenteral iron replacement with Venofer, completed in September 2013. 2. Hypertension. 3. Dyslipidemia. 4. Coronary artery disease with previous angioplasty/stent placement. 5. GERD/peptic ulcer disease with previously documented bleeding ulcer. 6. She has chronic anxiety. Problems Addressed with this Encounter and Plan: 1. Patient with recurrent iron deficiency anemia, presumably due to GI blood loss, though an actual source of blood loss was not determined. She has had poor tolerance for oral iron. Her anemia previously had corrected following a course of parenteral iron replacement with Venofer, completed in September 2013. She was given parenteral iron replacement with infusions of Injectafer in May 2016 and again in December 2019. During her initial follow-up she had remained mildly anemic with hemoglobin in the range of 10 to 11 g, though with normal transferrin saturation. Her current CBC shows hemoglobin in normal range at 12.3 g and with transferrin saturation and serum ferritin level both in normal range. She continues to have very limited activity tolerance, but at this point I assume that it is unrelated to her anemia. As such, I will just plan to see her again in 3 months. 2. She has a skin lesion on the left cheek which appears somewhat suspicious. I would like to have it checked by [facility], and I will schedule that referral. Signed By: Freedom Iverson M.D. <<Signature on File>>
== END 2020-09-01 14:31 | disposition home or self-care (01) ==
LOC: ONCMED 14:37
PROVIDERS: PCP Nurse Practitioner Family; Visit Provider Internal Medicine Medical Oncology
DX: D50.0 Iron deficiency anemia secondary to blood loss (chronic) (principal); I10 Essential (primary) hypertension; E78.5 Hyperlipidemia, unspecified; I25.10 Atherosclerotic heart disease of native coronary artery without angina pectoris; Z95.5 Presence of coronary angioplasty implant and graft; K21.9 Gastro-esophageal reflux disease without esophagitis; K27.9 Peptic ulcer, site unspecified, unspecified as acute or chronic, without hemorrhage or perforation; F41.9 Anxiety disorder, unspecified; Z79.899 Other long term (current) drug therapy
CPT/HCPCS: 36415; 80053; 82728; 83540; 83550; 85025; 99214

== ENCOUNTER 2020-10-23 15:08 | Emergency (ER) | payer MEDICARE, MEDICAID, SELFPAY ==
--- NOTE | 2020-10-23 15:09 | ECG_ITS ---
[facility] Test Date: 2020-10-23 Pat Name: Pauline Castle Department: Room: Gender: Female Research Fellow: : 1940 Requested By: Annmarie Calix Order Number: [id number] Dao MD: Radha Quiñones M.D. Measurements Intervals [place] Rate: 76 P: 43 ND: 157 QRS: 6 QRSD: 78 T: 38 QT: 357 QTc: 403 Interpretive Statements SINUS RHYTHM LOW QRS VOLTAGE IN PRECORDIAL LEADS [QRS DEFLECTION < 1.0 mV IN CHEST LEADS] POSSIBLE ANTERIOR MYOCARDIAL INFARCTION , PROBABLY OLD [30 ms Q WAVE IN V3/V4, OR R < 0.2 mV IN V4] Compared to ECG 01/10/2020 11:55:54 Myocardial infarct finding now present Electronically Signed On 10-24-2020 18:05:18 CDT by Radha Quiñones M.D. [id number]
--- NOTE | 2020-10-23 15:09 | XR_ITS ---
WS: [id number] Portable AP upright chest, 10/23/2020 Clinical Data: chest pain Comparison: Portable chest, 01/10/2020. Findings: There is left midlung atelectasis. The heart is at the upper limits of normal. No nodules, masses or effusions are seen. The aortic arch shows calcification and tortuosity. There are calcified augmentation mammoplasty implants unchanged. XR/XR chest 1V portable [id number] Impression: 1. Probable left midlung atelectasis. 2. Cardiomegaly and atherosclerosis.
[2020-10-23 15:32] LABS: Basophils # 0.1 10^3/uL (0.0-0.1); Basophils % 0.6 %; Eosinophils # 0.8 10^3/uL (0.0-0.8); Eosinophils % 5.5 %; Hematocrit 40.5 % (37.0-47.0); Hemoglobin 12.8 g/dL (11.5-15.3); Lymphocytes # 1.5 10^3/uL (0.8-4.8); Lymphocytes % 10.7 %; Mean Corpuscular HGB Conc 31.6 g/dL (30.0-36.0); Mean Corpuscular Hemoglobin 26.5 pg (28.0-34.0); Mean Corpuscular Volume 83.9 fl (81-99); Mean Platelet Volume 9.7 fL (7.4-10.4); Monocytes # 1.1 10^3/uL (0.2-0.9); Monocytes % 8.1 %; Neutrophils # 10.27 10^3/uL (1.8-7.7); Neutrophils % 74.1 %; Nucleated Red Blood Cells % 0 %; Platelet Count 409 10^3/cmm (130-400); Red Blood Count 4.83 10^6/uL (4.1-5.3); Red Cell Distribution Width 17.9 % (12.1-15.1); White Blood Count 13.9 10^3/uL (4.0-10.0)
[2020-10-23 16:03] LABS: Troponin(5th) Baseline 17 ng/L (0-10)
[2020-10-23 16:10] VITALS: BP 125/76; PULSE 82; RESP 18; TEMP 36.8; O2SAT 90
[2020-10-23 16:12] LABS: Alanine Aminotransferase 8 U/L (0-33); Alkaline Phosphatase 127 IU/L (35-105); Blood Urea Nitrogen 17 mg/dL (8-23); Carbon Dioxide 23 mmol/L (22-29); Chloride 106 mmol/L (98-107); Globulin 2.2 g/dL (1.3-4.6); Glucose 87 mg/dL (65-115); Osmolality Calculated 291 mOsm/kg (285-295); Sodium 140 mmol/L (136-145); Thyroid Stimulating Hormone 3.32 uIU/mL (0.27-4.20); Total Bilirubin 0.4 mg/dL (0.15-1.2); Total Protein 6.2 g/dL (6.6-8.7)
[2020-10-23 16:27] LABS: Anion Gap 15.3 (5-19); Aspartate Amino Transferase 15 U/L (0-32); Potassium 4.3 mmol/L (3.5-5.1)
--- NOTE | 2020-10-23 17:09 | ECG_ITS ---
[facility] Test Date: 2020-10-23 Pat Name: Pauline Castle Department: Room: Gender: Female News Cameraman: : 1940 Requested By: Annmarie Calix Order Number: [id number] Dao MD: Radha Quiñones M.D. Measurements Intervals [place] Rate: 76 P: 57 CA: 168 QRS: 4 QRSD: 75 T: 45 QT: 360 QTc: 405 Interpretive Statements SINUS RHYTHM LOW QRS VOLTAGE IN PRECORDIAL LEADS [QRS DEFLECTION < 1.0 mV IN CHEST LEADS] POSSIBLE ANTERIOR MYOCARDIAL INFARCTION , PROBABLY OLD [30 ms Q WAVE IN V3/V4, OR R < 0.2 mV IN V4] Compared to ECG 10/23/2020 15:45:04 No significant changes Electronically Signed On 10-24-2020 18:25:48 CDT by Radha Quiñones M.D. [id number]
--- NOTE | 2020-10-23 17:40 | ED_ITS ---
Documented by User: Erick Hartman MD 10/24/20 07:10 HPI - Anxiety General: Chief Complaint: Anxiety Stated Complaint: CHEST PALPITATIONS Time Seen by Provider: 10/23/20 17:39 History of Present Illness: HPI narrative: Ms Carpenter is an 79-year-old lady with significant past medical history of paroxysmal atrial tachycardia presents emergency department due to palpitations. She reports symptom onset was a number of days ago. She had a telehealth visit with her primary claims consultant Dr. Tsai and was changed from carvedilol to metoprolol. The patient, since that time has had increased palpitations and generalized malaise. Palpitations are uncomfortable. She has associated nausea, vomiting, and generalized malaise. Overall the intensity of symptoms is moderate. The course was worsening however she stopped taking the metoprolol and started taking her carvedilol again which improved it. She denies symptoms this bad in the past though has previously been evaluated for atrial tachycardia. She denies infectious symptoms. No other significant changes in health. No other specific provoking, exacerbating, or alleviating factors. Review of Systems General: Reports: 10 or more systems reviewed and unremarkable except in HPI and below Narrative: CONSTITUTIONAL: denies fever, positive for fatigue EYES - denies pain, denies loss of vision EARS - denies ear issues. NOSE - denies congestion or rhinorrhea. THROAT - denies sore throat or difficulty swallowing. CARDIOVASCULAR -see HPI RESPIRATORY - denies shortness of breath and cough GASTROINTESTINAL - denies abdominal pain, positive for nausea and vomiting, no changes in bowel habits GENITOURINARY - denies dysuria or urinary frequency MUSCULOSKELETAL- denies deformity or pain SKIN - denies rashes or new changed skin lesions NEUROLOGIC - denies focal weakness or sensory changes HEMATOLOGIC/LYMPHATIC - denies easy bruising or lymphadenopathy. PFS ED PFSH: Medical History Atherosclerosis of coronary artery CHF (congestive heart failure) Hyperlipidemia Hypertension LV dysfunction Family History Father Hypertension Myocardial infarction CHF (congestive heart failure) CAD (coronary artery disease) Mother Myocardial infarction Denies family history of Diabetes Clotting disorder Dementia Chronic kidney disease (CKD) Suicide Anesthesia complication Bleeding disorder Lung disease Cancer Stroke Social History Smoking and tobacco status: former smoker Alcohol intake: never Physical Exam Narrative: EXAM NARRATIVE: GENERAL/CONSTITUTIONAL - well-appearing. No acute distress. Eyes - PERRL, no conjunctival injection ENMT - Atraumatic external nose and ears. Moist mucous membranes NECK - supple. trachea midline CARDIOVASCULAR - regular rate and rhythm. Occasional ectopy. peripheral pulses 2+ and equal RESPIRATORY -clear to auscultation bilaterally. No retractions or accessory muscle use. ABDOMEN/GI - Nontender/Nondistended. No tenderness to percussion or evidence of peritonitis MSK - Extremities without obvious deformity or tenderness to palpation SKIN - Warm, Dry NEURO - alert and appropriately oriented. strength and sensation intact. Moves all extremities equally. PSYCH - Appropriate mood and affect. Mildly anxious Course ED course: - Patient was seen and evaluated by me at bedside - Patient placed on cardiac monitors, IV access obtained - Initial evaluation notable for no acute distress, nontoxic appearance - Labs notable for mild leukocytosis of unclear etiology in the absence of infectious symptoms. No obvious electrolyte abnormality to explain patient's symptoms - Imaging notable for no focal lobar consolidation -I discussed the case with Dr. Tsai via telephone, it is unclear why the patient received a prescription for metoprolol - Upon serial reexamination the patient was improved - Based on patient history, evaluation, labs, and imaging as interpreted the most likely cause of the patient's condition is medication reaction - The results of ED evaluation were discussed with the patient including prescriptions and/or symptomatic cares including appropriate and responsible use, followup plan, and return precautions. The patient verbalized understanding and felt safe for discharge. - Patient discharged in satisfactory condition. Vital Signs: Vital signs: Vital Signs Temperature 98.2 F 10/23/20 16:10 Pulse Rate 79 10/23/20 20:14 Respiratory Rate 21 H 10/23/20 20:14 Blood Pressure 136/90 10/23/20 20:14 Pulse Oximetry 94 10/23/20 20:14 MDM - Anxiety Medical Records: Attestation: I reviewed the patient's medical records. Lab Data: Attestation: I reviewed the patient's lab results. Labs: Lab Results 10/23/20 10/23/20 10/23/20 Range/Units 14:20 14:20 14:20 WBC 13.9 H (4.0-10.0) 10^3/ uL RBC 4.83 (4.1-5.3) 10^6/u L Hgb 12.8 (11.5-15.3) g/dL Hct 40.5 (37.0-47.0) % MCV 83.9 (81-99) fl MCH 26.5 L (28.0-34.0) pg MCHC 31.6 (30.0-36.0) g/dL RDW 17.9 H (12.1-15.1) % Plt Count 409 H (130-400) 10^3/c mm MPV 9.7 (7.4-10.4) fL Neut % (Auto) 74.1 % Lymph % (Auto) 10.7 % Mcdonald % (Auto) 8.1 % Eos % (Auto) 5.5 % Baso % (Auto) 0.6 % Neut # (Auto) 10.27 H (1.8-7.7) 10^3/u L Lymph # (Auto) 1.5 (0.8-4.8) 10^3/u L Mcdonald # (Auto) 1.1 H (0.2-0.9) 10^3/u L Eos # (Auto) 0.8 (0.0-0.8) 10^3/u L Baso # (Auto) 0.1 (0.0-0.1) 10^3/u L Nucleated RBC % (a uto) 0 % Nucleated RBCs # 0.0 /100WBC Sodium 140 (136-145) mmol/L Potassium 4.3 (3.5-5.1) mmol/L Chloride 106 (98-107) mmol/L Carbon Dioxide 23 (22-29) mmol/L Anion Gap 15.3 (5-19) BUN 17 (8-23) mg/dL Creatinine 1.2 H (0.5-0.9) mg/dL GFR Calculation Not Reportable Glucose 87 (65-115) mg/dL Calculated Osmolal ity 291 (285-295) mOsm/k g Calcium 9.0 (8.5-10.5) mg/dL Total Bilirubin 0.4 (0.15-1.2) mg/dL AST 15 (0-32) U/L ALT 8 (0-33) U/L Alkaline Phosphata se 127 H (35-105) IU/L Troponin T Baselin e 17 H (0-10) ng/L Troponin T 120 Min [place] (0-10) ng/L Delta Troponin T (0-10) ABS# Total Protein 6.2 L (6.6-8.7) g/dL Albumin 4.0 (3.5-5.2) g/dL Globulin 2.2 (1.3-4.6) g/dL TSH 3.32 (0.27-4.20) uIU/ mL 10/23/20 Range/Units 19:04 WBC (4.0-10.0) 10^3/ uL RBC (4.1-5.3) 10^6/u L Hgb (11.5-15.3) g/dL Hct (37.0-47.0) % MCV (81-99) fl MCH (28.0-34.0) pg MCHC (30.0-36.0) g/dL RDW (12.1-15.1) % Plt Count (130-400) 10^3/c mm MPV (7.4-10.4) fL Neut % (Auto) % Lymph % (Auto) % Mcdonald % (Auto) % Eos % (Auto) % Baso % (Auto) % Neut # (Auto) (1.8-7.7) 10^3/u L Lymph # (Auto) (0.8-4.8) 10^3/u L Mcdonald # (Auto) (0.2-0.9) 10^3/u L Eos # (Auto) (0.0-0.8) 10^3/u L Baso # (Auto) (0.0-0.1) 10^3/u L Nucleated RBC % (a uto) % Nucleated RBCs # /100WBC Sodium (136-145) mmol/L Potassium (3.5-5.1) mmol/L Chloride (98-107) mmol/L Carbon Dioxide (22-29) mmol/L Anion Gap (5-19) BUN (8-23) mg/dL Creatinine (0.5-0.9) mg/dL GFR Calculation Glucose (65-115) mg/dL Calculated Osmolal ity (285-295) mOsm/k g Calcium (8.5-10.5) mg/dL Total Bilirubin (0.15-1.2) mg/dL AST (0-32) U/L ALT (0-33) U/L Alkaline Phosphata se (35-105) IU/L Troponin T Baselin e (0-10) ng/L Troponin T 120 Min [place] 13.40 H (0-10) ng/L Delta Troponin T -3.60 L (0-10) ABS# Total Protein (6.6-8.7) g/dL Albumin (3.5-5.2) g/dL Globulin (1.3-4.6) g/dL TSH (0.27-4.20) uIU/ mL Discharge Plan Discharge Patient Disposition: Home Clinical Impression: Heart palpitations Condition: Stable Prescriptions: New carvedilol 6.25 mg tablet 6.25 mg PO Q8H 15 Days Qty: 45 RF: 0 No Action acetaminophen [Tylenol Extra Strength] 500 mg tablet 500 mg PO DAILY PRNRF: 0 loperamide [Imodium A-D] 2 mg tablet 2 mg PO QID PRNRF: 0 trazodone 50 mg tablet 50 mg PO DAILY PRN (Reason: insomnia) RF: 0 nitroglycerin [Nitrostat] 0.4 mg tablet, sublingual 0.4 mg sublingual Q5M PRNRF: 0 fluticasone propionate [Flonase Allergy Relief] 50 mcg/actuation spray,suspension 1 spray intranasal DAILY RF: 0 prednisone 10 mg tablet 10 mg PO QID RF: 0 loratadine 10 mg tablet 10 mg PO DAILY RF: 0 pantoprazole 40 mg tablet,delayed release (DR/EC) 40 mg PO BID RF: 0 metoprolol tartrate 25 mg tablet 25 mg PO BID Qty: 60 RF: 5 fluticasone propion-salmeterol [Wixela Inhub] 250-50 mcg/dose Blister With Device 1 inh INHALATION BID PRN (Reason: Shortness Of Breath) RF: 0 atorvastatin 20 mg Tablet 20 mg PO DAILY@2099 RF: 0 famotidine 40 mg Tablet 40 mg PO BID@ RF: 0 spironolactone 25 mg Tablet 12.5 mg PO DAILY@ RF: 0 levothyroxine 25 mcg Tablet 25 mcg PO DAILY@09 RF: 0 alprazolam 0.25 mg Tablet 0.25 mg PO BID PRN (Reason: Anxiety) RF: 0 Discharge Orders: Discharge ED (Routine); Ordered 10/23/20 Ordered By: Chapincito Davalos Referrals: Hoa Stock [Primary Care Provider] - Discharge Diet: Cardiac Discharge Activity: Resume usual activity Patient Instructions: Palpitations (ED), Opioid Safety Activity Restrictions/Additional Instructions: Thank you for visiting the emergency department. You were seen and evaluated for palpitations. In discussion with Dr. Tsai and per chart review it is unclear why your medication was changed. He recommends close follow-up again with cardiology and resuming carvedilol 6.25 mg 3 times daily. Given the intolerance he recommends stopping the metoprolol. You have mild lab abnormalities that need to be followed. Please return to the emergency department if you experience worsening of your symptoms, syncope, chest pain, shortness of breath, or anything else that you are concerned about and feel needs emergency department evaluation. Coding Level of Care Code ED [employer] Judge for Chg Fwd Documented by User: Chapincito Davalos MD 10/23/20 20:48 HPI - Anxiety General: Chief Complaint: Anxiety Stated Complaint: CHEST PALPITATIONS Time Seen by Provider: 10/23/20 17:39 [facility] ED PFSH: Medical History Atherosclerosis of coronary artery CHF (congestive heart failure) Hyperlipidemia Hypertension LV dysfunction Family History Father Hypertension Myocardial infarction CHF (congestive heart failure) CAD (coronary artery disease) Mother Myocardial infarction Denies family history of Diabetes Clotting disorder Dementia Chronic kidney disease (CKD) Suicide Anesthesia complication Bleeding disorder Lung disease Cancer Stroke Social History Smoking and tobacco status: former smoker Alcohol intake: never Course Vital Signs: Vital signs: Vital Signs Temperature 98.2 F 10/23/20 16:10 Pulse Rate 79 10/23/20 20:14 Respiratory Rate 21 H 10/23/20 20:14 Blood Pressure 136/90 10/23/20 20:14 Pulse Oximetry 94 10/23/20 20:14 MDM - Anxiety MDM Narrative: Medical decision making narrative: Patient presents here with palpitations. Followed up troponin it showed no change took patient over from Dr. Waldron. He had spoke to Dr. Tsai and patient is to follow-up if she is stable for discharge and return if worsening. Lab Data: Labs: Lab Results 10/23/20 10/23/20 10/23/20 Range/Units 14:20 14:20 14:20 WBC 13.9 H (4.0-10.0) 10^3/ uL RBC 4.83 (4.1-5.3) 10^6/u L Hgb 12.8 (11.5-15.3) g/dL Hct 40.5 (37.0-47.0) % MCV 83.9 (81-99) fl MCH 26.5 L (28.0-34.0) pg MCHC 31.6 (30.0-36.0) g/dL RDW 17.9 H (12.1-15.1) % Plt Count 409 H (130-400) 10^3/c mm MPV 9.7 (7.4-10.4) fL Neut % (Auto) 74.1 % Lymph % (Auto) 10.7 % Mcdonald % (Auto) 8.1 % Eos % (Auto) 5.5 % Baso % (Auto) 0.6 % Neut # (Auto) 10.27 H (1.8-7.7) 10^3/u L Lymph # (Auto) 1.5 (0.8-4.8) 10^3/u L Mcdonald # (Auto) 1.1 H (0.2-0.9) 10^3/u L Eos # (Auto) 0.8 (0.0-0.8) 10^3/u L Baso # (Auto) 0.1 (0.0-0.1) 10^3/u L Nucleated RBC % (a uto) 0 % Nucleated RBCs # 0.0 /100WBC Sodium 140 (136-145) mmol/L Potassium 4.3 (3.5-5.1) mmol/L Chloride 106 (98-107) mmol/L Carbon Dioxide 23 (22-29) mmol/L Anion Gap 15.3 (5-19) BUN 17 (8-23) mg/dL Creatinine 1.2 H (0.5-0.9) mg/dL GFR Calculation Not Reportable Glucose 87 (65-115) mg/dL Calculated Osmolal ity 291 (285-295) mOsm/k g Calcium 9.0 (8.5-10.5) mg/dL Total Bilirubin 0.4 (0.15-1.2) mg/dL AST 15 (0-32) U/L ALT 8 (0-33) U/L Alkaline Phosphata se 127 H (35-105) IU/L Troponin T Baselin e 17 H (0-10) ng/L Troponin T 120 Min [place] (0-10) ng/L Delta Troponin T (0-10) ABS# Total Protein 6.2 L (6.6-8.7) g/dL Albumin 4.0 (3.5-5.2) g/dL Globulin 2.2 (1.3-4.6) g/dL TSH 3.32 (0.27-4.20) uIU/ mL 10/23/20 Range/Units 19:04 WBC (4.0-10.0) 10^3/ uL RBC (4.1-5.3) 10^6/u L Hgb (11.5-15.3) g/dL Hct (37.0-47.0) % MCV (81-99) fl MCH (28.0-34.0) pg MCHC (30.0-36.0) g/dL RDW (12.1-15.1) % Plt Count (130-400) 10^3/c mm MPV (7.4-10.4) fL Neut % (Auto) % Lymph % (Auto) % Mcdonald % (Auto) % Eos % (Auto) % Baso % (Auto) % Neut # (Auto) (1.8-7.7) 10^3/u L Lymph # (Auto) (0.8-4.8) 10^3/u L Mcdonald # (Auto) (0.2-0.9) 10^3/u L Eos # (Auto) (0.0-0.8) 10^3/u L Baso # (Auto) (0.0-0.1) 10^3/u L Nucleated RBC % (a uto) % Nucleated RBCs # /100WBC Sodium (136-145) mmol/L Potassium (3.5-5.1) mmol/L Chloride (98-107) mmol/L Carbon Dioxide (22-29) mmol/L Anion Gap (5-19) BUN (8-23) mg/dL Creatinine (0.5-0.9) mg/dL GFR Calculation Glucose (65-115) mg/dL Calculated Osmolal ity (285-295) mOsm/k g Calcium (8.5-10.5) mg/dL Total Bilirubin (0.15-1.2) mg/dL AST (0-32) U/L ALT (0-33) U/L Alkaline Phosphata se (35-105) IU/L Troponin T Baselin e (0-10) ng/L Troponin T 120 Min [place] 13.40 H (0-10) ng/L Delta Troponin T -3.60 L (0-10) ABS# Total Protein (6.6-8.7) g/dL Albumin (3.5-5.2) g/dL Globulin (1.3-4.6) g/dL TSH (0.27-4.20) uIU/ mL Discharge Plan Discharge Patient Disposition: Home Clinical Impression: Heart palpitations Condition: Stable Prescriptions: New carvedilol 6.25 mg tablet 6.25 mg PO Q8H 15 Days Qty: 45 RF: 0 No Action acetaminophen [Tylenol Extra Strength] 500 mg tablet 500 mg PO DAILY PRNRF: 0 loperamide [Imodium A-D] 2 mg tablet 2 mg PO QID PRNRF: 0 trazodone 50 mg tablet 50 mg PO DAILY PRN (Reason: insomnia) RF: 0 nitroglycerin [Nitrostat] 0.4 mg tablet, sublingual 0.4 mg sublingual Q5M PRNRF: 0 fluticasone propionate [Flonase Allergy Relief] 50 mcg/actuation spray,suspension 1 spray intranasal DAILY RF: 0 prednisone 10 mg tablet 10 mg PO QID RF: 0 loratadine 10 mg tablet 10 mg PO DAILY RF: 0 pantoprazole 40 mg tablet,delayed release (DR/EC) 40 mg PO BID RF: 0 metoprolol tartrate 25 mg tablet 25 mg PO BID Qty: 60 RF: 5 fluticasone propion-salmeterol [Wixela Inhub] 250-50 mcg/dose Blister With Device 1 inh INHALATION BID PRN (Reason: Shortness Of Breath) RF: 0 atorvastatin 20 mg Tablet 20 mg PO DAILY@2100 RF: 0 famotidine 40 mg Tablet 40 mg PO BID@ RF: 0 spironolactone 25 mg Tablet 12.5 mg PO DAILY@ RF: 0 levothyroxine 25 mcg Tablet 25 mcg PO DAILY@ RF: 0 alprazolam 0.25 mg Tablet 0.25 mg PO BID PRN (Reason: Anxiety) RF: 0 Discharge Orders: Discharge ED (Routine); Ordered 10/23/20 Ordered By: Chapincito Davalos Referrals: Hoa Stock [Primary Care Provider] - Discharge Diet: Cardiac Discharge Activity: Resume usual activity Patient Instructions: Palpitations (ED), Opioid Safety Activity Restrictions/Additional Instructions: Thank you for visiting the emergency department. You were seen and evaluated for palpitations. In discussion with Dr. Tsai and per chart review it is unclear why your medication was changed. He recommends close follow-up again with cardiology and resuming carvedilol 6.25 mg 3 times daily. Given the intolerance he recommends stopping the metoprolol. You have mild lab abnormalities that need to be followed. Please return to the emergency department if you experience worsening of your symptoms, syncope, chest pain, shortness of breath, or anything else that you are concerned about and feel needs emergency department evaluation. Coding Level of Care Code ED County Court Judge for Chaitanya [place]ola
[2020-10-23 18:00] VITALS: BP 102/84; PULSE 77; RESP 18; O2SAT 96
[2020-10-23 19:42] VITALS: BP 129/76; PULSE 82; RESP 22; O2SAT 94
[2020-10-23 20:14] VITALS: BP 136/90; PULSE 79; RESP 21; O2SAT 94
== END 2020-10-23 20:14 | disposition home or self-care (01) ==
PROVIDERS: Physician Assistant; Emergency Provider Emergency Medicine; PCP Nurse Practitioner Family
DX: R00.2 Palpitations (principal); I25.10 Atherosclerotic heart disease of native coronary artery without angina pectoris; I11.0 Hypertensive heart disease with heart failure; I50.9 Heart failure, unspecified; E78.5 Hyperlipidemia, unspecified; Z87.891 Personal history of nicotine dependence
CPT/HCPCS: 71045; 80053; 84443; 84484; 85025; 93005; 99283

== ENCOUNTER 2020-12-03 14:48 | Outpatient (CLI) | payer MEDICARE, MEDICAID, SELFPAY ==
[2020-12-03 15:41] LABS: Hematocrit 38.6 % (37.0-47.0); Hemoglobin 12.1 g/dL (11.5-15.3); Mean Corpuscular HGB Conc 31.3 g/dL (30.0-36.0); Mean Corpuscular Hemoglobin 26.2 pg (28.0-34.0); Mean Corpuscular Volume 83.5 fl (81-99); Platelet Count 411 10^3/cmm (130-400); Red Blood Count 4.62 10^6/uL (4.1-5.3); Red Cell Distribution Width 15.2 % (12.1-15.1); White Blood Count 11.1 10^3/uL (4.0-10.0)
[2020-12-03 15:42] LABS: Basophils # 0.1 10^3/uL (0.0-0.1); Basophils % 0.6 %; Eosinophils % 9.4 %; Lymphocytes # 1.1 10^3/uL (0.8-4.8); Lymphocytes % 10.2 %; Mean Platelet Volume 9.4 fL (7.4-10.4); Monocytes # 0.9 10^3/uL (0.2-0.9); Monocytes % 8.2 %; Neutrophils # 7.77 10^3/uL (1.8-7.7); Neutrophils % 70.2 %; Nucleated Red Blood Cells % 0 %
[2020-12-03 16:07] LABS: Alanine Aminotransferase 7 U/L (0-33); Albumin Level 3.9 g/dL (3.5-5.2); Alkaline Phosphatase 123 IU/L (35-105); Aspartate Amino Transferase 11 U/L (0-32); Blood Urea Nitrogen 17 mg/dL (8-23); Calcium 9.3 mg/dL (8.5-10.5); Carbon Dioxide 19 mmol/L (22-29); Chloride 108 mmol/L (98-107); Globulin 3.1 g/dL (1.3-4.6); Glucose 99 mg/dL (65-115); Osmolality Calculated 290 mOsm/kg (285-295); Sodium 139 mmol/L (136-145); Total Bilirubin 0.3 mg/dL (0.15-1.2)
[2020-12-03 16:40] LABS: Folate Level 10.4 ng/mL (4.8-37.3)
[2020-12-03 17:11] LABS: Ferritin 27 ng/mL (15-150); Iron 36 ug/dL (37-145); Percent Saturation 9.9 % (20-50); Total Iron Binding Capacity 362 mcg/dl; Unsaturated Iron Binding 326 ug/dL (112-347)
--- NOTE | 2020-12-04 07:56 | ONC FU_ITS ---
Dr. Iverson Patient Follow-Up Note Patient: Pauline Castle Unit #: [id number]: [id number] Dicatated By: Freedom Iverson M.D.Date of Visit:Dec 03, 2020 Onc Med Follow-up/Prog Note Chief Complaint: Anemia. History of Present Illness: This is an 80 year-old woman with iron deficiency anemia. She has a history of hypertension, dyslipidemia, and coronary artery disease. She underwent coronary angioplasty/stent placement in 2009. Sometime after that she had an episode of GI bleeding, which apparently was confirmed by endoscopy to be a bleeding ulcer. I had seen her initially in July 2013 after she had been found to be severely anemic. She felt better following a transfusion of packed red blood cells, but her followup CBCs were still showing significant anemia. As of June 2013 her hemoglobin was still low at 6.2 g with hematocrit 27%. The red cell indices were hypochromic/microcytic with MCV 27 and MCH 64. White blood cell count normal at 5900 and platelet count was normal at 324,000. Serum iron was low at 11 mcg/dL. She had started oral iron supplementation with ferrous sulfate, but she had difficulty tolerating it due to nausea. I did opt to give her parenteral iron replacement with Venofer, which she completed in September 2013 to a total dose of 1800 mg. Her follow-up CBC in October 2013 showed hemoglobin up to 15 g with normal red cell indices. In August 2015 she was admitted to the hospital with another acute GI bleed. Her upper GI endoscopy showed only mild patchy gastritis. There was no evidence of ongoing mucosal bleeding. The duodenum appeared unremarkable. She was seen by Aundrea Zhang on 05/13/2016 with complaints of fatigue and cough. She was moderately anemic with hemoglobin 9.6 g and hematocrit 30%. The red cell indices were hypochromic/microcytic with MCV 68 and MCH 21. The white blood cell count was slightly elevated at 11,300 and the platelet count also was mildly elevated at 540,000. Transferrin saturation at that time was 5% and ferritin was low at 7.6 ng/mL. She was seen in the emergency room in [place] on 05/19/2016. At that time she also was found to have low potassium at 2.9 mmol/L. I had seen her for a follow-up visit on 05/21/2016. She was then given parenteral iron replacement with infusions of Injectafer on 05/21/2016 and on 05/28/2016. I had then seen her for a follow-up visit on 12/24/2019. She had been in the hospital again with GI bleeding, presumably secondary to Plavix. Her colonoscopy reportedly showed a polyp which was only partially excised. At the time of that visit she was still anemic with hemoglobin 9.1 g. Her serum iron studies showed transferrin saturation 5.5% and her ferritin was low at 6 ng/mL, consistent with iron deficiency. She was given parenteral iron replacement with 2 infusions of Injectafer. During initial follow-up she remained mildly anemic with hemoglobin in the range of 10 to 11 g, but with serum iron studies showing normal transferrin saturation. Her medical illnesses include hypertension, dyslipidemia, coronary artery disease, and GERD/peptic ulcer disease. Her records indicate that she also has chronic diastolic heart failure. She has history of smoking 1 pack of cigarettes daily for 40 years. She quit smoking in 2009. INTERIM HISTORY: At her follow-up visit on 09/01/2020 her hemoglobin was just borderline low at 12.3 g, though her serum iron studies still showed evidence of iron deficiency with transferrin saturation 12.0%. Her ferritin also was relatively low at 24 ng/mL. She is seen for a follow-up visit. She continues to complain that she has no energy. She has limited activity. She uses a walker for ambulation and she has only very limited housework. ECOG score is 2. She also complains that she has no appetite and that she does not want to eat anything, but her weight is stable. She has not had fever. She has some mild night sweating. Her main complaint is that she has been having severe, generalized itching. It involves everything except her palms and the soles of her feet. She is not getting much benefit with topical steroid and she has not been taking Benadryl because it makes her sleepy. She says her breathing is terrible and she is short of breath if she tries to go very far at all. She recently has had nonproductive cough. She has been having a lot of heart fluttering. She had briefly tried metoprolol, but stopped it because of side effects. She is still taking her carvedilol 3 times a day. She has not had chest pain. She has no GI complaints other than her bowels tend to be loose, though not watery. She also notes that her stools have not been dark. Bladder function has been okay. She has pain in her lower back and both hips, particularly the left hip. She does not complain of headache or dizziness, she has no focal neurologic symptoms. Medications: Acetaminophen 1 Tablet (of 500 mg) Oral daily, Advair Diskus 1 Puff(s) (of 250-50 mcg/dose) Aerosol Powder, Breath Activated Inhalation b.i.d., ALPRAZolam 1 (0.25 mg) Tablet Oral daily PRN, Atorvastatin Calcium 1 Tablet (of 20 mg) Oral at bedtime, Carvedilol 1 Tablet (of 6.25 mg) Oral b.i.d., Cetirizine HCl 1 Tablet (of 10 mg) Oral daily PRN, Flonase 2 [place](s) (of 50 mcg/act) Suspension Nasal daily, Imodium A-D 1 Tablet (of 2 mg) Oral PRN, Levo-T 1 (25 mcg) Tablet Oral daily, Nitroglycerin 1 Tablet (of 0.4 mg) Tablet, sublingual Sublingual PRN, Pantoprazole Sodium 1 (40 mg) Tablet, enteric coated Oral b.i.d., Spironolactone 0.5 Tablet (of 25 mg) Oral daily, traZODone HCl 1 Tablet (of 50 mg) Oral at bedtime PRN Allergies: Phenergan Vital Signs: Performed on Dec 03, 2020 16:56 Height - 59.00 in Weight - 123.6 lbs (HIGH) BSA - 1.50 sq.m BMI - 24.96 Temperature - 97.6 F (LOW) Pulse - 75 /min Respiration - 20 /min BP - 126/74 mm(hg) O2 Sat - 97 % Pain - 0 Fatigue - 10 Physical Examination: Constitutional - She looks pretty good generally, Eyes - Sclerae nonicteric. Conjunctivae clear, ENMT - No lesions noted in the oral cavity, Hematologic/Lymphatic - No cervical, clavicular, or axillary adenopathy, Respiratory - Lungs are clear with some decrease in air movement bilaterally, Cardiovascular - Heart rhythm is irregular. The rate is controlled. There is no murmur, gallop, or rub noted, Abdomen - Soft. Liver and spleen are not enlarged. There is no abdominal mass or ascites noted and there is no inguinal adenopathy, Extremities - No edema. Dorsalis pedis pulses are palpable bilaterally, Integumentary - She has a multiple small excoriated lesions on the back and abdominal wall and to a lesser extent on both arms and both legs. There is mild patchy erythema on the back, but there appears to be no significant underlying skin eruption. The lesion on the left cheek appears unchanged, Neurologic - No focal neurologic deficits noted. Lab/Imaging: Test performed on Dec 03, 2020 15:08 Ferritin 27 ng/mL Folate, Serum 10.4 ng/mL Iron 36 mcg/dL Sodium 139 mmol/L Iron Binding Capacity (TIBC) 362 mcg/dl Potassium 4.0 mmol/L % Iron Saturation 9.9 % Chloride 108 mmol/L CO2 19 mmol/L UIBC 326 mcg/dL Anion Gap 16.0 BUN 17 mg/dL Creatinine 1.1 mg/dL Cr Clearance (Est) 34.90 mL/min Glucose 99 mg/dL Osmolality - Calculated 290 mOsm/kg Calcium 9.3 mg/dL Protein, Total 7.0 g/dL Albumin 3.9 g/dL Globulin 3.1 g/dL Bilirubin, Total 0.3 mg/dL ALT (SGPT) 7 U/L AST (SGOT) 11 U/L Alkaline Phosphatase 123 IU/L WBC 11.1 10 3/uL RBC 4.62 10 6/uL HGB 12.1 g/dL HCT 38.6 % MCV 83.5 fl MCH 26.2 pg MCHC 31.3 g/dL RDW 15.2 % Platelet Count 411 10 3/cmm MPV 9.4 fL Neutrophils 7.77 10 3/uL Lymphocytes 1.1 10 3/uL Monocytes 0.9 10 3/uL Eosinophils 1.0 10 3/uL Basophils 0.1 10 3/uL Neutrophil % 70.2 % Lymphocyte % 10.2 % Monocyte % 8.2 % Eosinophil % 9.4 % Basophils % 0.6 % NRBC % 0 % Problem List: 1. Patient with recurrent iron deficiency anemia, presumably due to GI blood loss, though an actual source of blood loss was not determined. She has had poor tolerance for oral iron. Her anemia previously had corrected following a course of parenteral iron replacement with Venofer, completed in September 2013. 2. Hypertension. 3. Dyslipidemia. 4. Coronary artery disease with previous angioplasty/stent placement. 5. GERD/peptic ulcer disease with previously documented bleeding ulcer. 6. She has chronic anxiety. Problems Addressed with this Encounter and Plan: 1. Patient with recurrent iron deficiency anemia, presumably due to GI blood loss, though an actual source of blood loss was not determined. She has had poor tolerance for oral iron. Her anemia previously had corrected following a course of parenteral iron replacement with Venofer, completed in September 2013. She was given parenteral iron replacement with infusions of Injectafer in May 2016 and again in December 2019. During her initial follow-up she had remained mildly anemic with hemoglobin in the range of 10 to 11 g, though with normal transferrin saturation. During subsequent follow-up her hemoglobin/hematocrit levels have just been borderline low, though serum iron studies and ferritin have still been consistent with iron deficiency. It is uncertain to what extent that may be contributing to her fatigue. As she has been intolerant of oral iron, I think it would be reasonable to offer her the option to have a single infusion of Injectafer. 2. She has developed severe, generalized itching. The cause is uncertain, as she does not appear to have a primary underlying skin eruption. At least for now she is recommended to take cetirizine 10 mg in the morning and Benadryl 25 mg at bedtime, and I have recommended that she try using CeruVe antiitch cream. If this is not improving, I will check additional laboratory studies including sed rate and a panel of molecular studies for myeloproliferative disorders. 3. She has a skin lesion on the left cheek which appears somewhat suspicious. She is scheduled to see a media promoter in the latter part of December. Signed By: Freedom Iverson M.D. <<Signature on File>>
== END 2020-12-03 14:49 | disposition home or self-care (01) ==
LOC: ONCMED 14:50
PROVIDERS: PCP Nurse Practitioner Family; Visit Provider Internal Medicine Medical Oncology
DX: D50.9 Iron deficiency anemia, unspecified (principal); L29.9 Pruritus, unspecified; L98.9 Disorder of the skin and subcutaneous tissue, unspecified; I10 Essential (primary) hypertension; E78.5 Hyperlipidemia, unspecified; I25.10 Atherosclerotic heart disease of native coronary artery without angina pectoris; Z95.5 Presence of coronary angioplasty implant and graft; K21.9 Gastro-esophageal reflux disease without esophagitis; F41.8 Other specified anxiety disorders; Z79.899 Other long term (current) drug therapy
CPT/HCPCS: 36415; 80053; 82728; 82746; 83540; 83550; 85025; 99214

== ENCOUNTER 2021-01-14 13:46 | Outpatient (CLI) | payer MEDICARE, MEDICAID, SELFPAY ==
[2021-01-14] MEDS: ferric carboxy (IVPB) 750 MG in sodium chloride 0.9% (100 ml) 100 ML 460 MG IV (14:45)
== END 2021-01-14 13:47 | disposition home or self-care (01) ==
PROVIDERS: PCP Nurse Practitioner Family; Visit Provider Internal Medicine Medical Oncology
DX: D50.9 Iron deficiency anemia, unspecified (principal); Z79.899 Other long term (current) drug therapy
CPT/HCPCS: 81219; 81402; 81403; 96365; J1439

== ENCOUNTER 2021-02-03 12:15 | Observation (INO) | payer MEDICARE, MEDICAID, SELFPAY ==
[2021-02-03 12:18] VITALS: BP 134/66; PULSE 73; RESP 17; TEMP 36.8; O2SAT 97; BMI 23.8
--- NOTE | 2021-02-03 12:40 | W.ED.GENADLT ---
HPI - General Adult General: Chief complaint: General Medical Stated complaint: DARK RUNNY STOOLS/ WEAKNESS Time Seen by Provider: 02/03/21 12:20 History of Present Illness: HPI narrative: Patient is an 80-year-old female with history of recurrent GI bleeding who presents the emergency room after having 12 episodes of tarry black stool since Tuesday. Patient says that she is followed by Dr. Ivesron has had an iron infusion about 3 weeks ago. She is not taking any iron pills currently. Denies any history of anticoagulation use. Denies any history of cirrhosis. Patient has no hemoptysis, fever/chills, nausea/vomiting, or abdominal pain. Patient says that she felt lightheaded and said to come to the emergency room for evaluation. Per conversation with Dr. Iverson, patient is due to have a camera pill evaluation. However because of insurance reason, patient has been unable to afford camera pill at this time. Last EGD with [facility] was in 2015. Onset: 3 days ago Duration:3 days Location:home Severity:moderate/severe Review of Systems Narrative: Constitutional: No fever, no chills. HEENT: No vision changes CV: No chest pain, no palpitations PULM: no cough, no dyspnea. GI: No abdominal pain, no N/V/D. +dark tarry stool : No dysuria MSKEL: No muscle pain SKIN: No new rashes, no lesions. NEURO: No headache, no focal weakness. HEME: No visible bruises PSYCH: Normal mood PFSH ED PFSH: Medical History Atherosclerosis of coronary artery CHF (congestive heart failure) Hyperlipidemia Hypertension LV dysfunction Family History Father Hypertension Myocardial infarction CHF (congestive heart failure) CAD (coronary artery disease) Mother Myocardial infarction Denies family history of Diabetes Clotting disorder Dementia Chronic kidney disease (CKD) Suicide Anesthesia complication Bleeding disorder Lung disease Cancer Stroke Social History Smoking and tobacco status: former smoker Alcohol intake: never Physical Exam Narrative: EXAM NARRATIVE: Head: Atraumatic Eyes: PERRL, conjunctiva without injection ENT: Mucous membrane moist NECK: Supple, ROM intact LUNGS: LCTAB, no crackles/rhonchi CV: RRR ABDOMEN: Soft, nontender in all quadrants EXTREMITY: Normal ROM SKIN: No rash or erythema NEURO: Awake and alert, no focal motor deficits PSYCH: Normal mood and affect RECTAL: +hemoocult positive stool Course Vital Signs: Vital signs: Vital Signs Temperature 98.3 F 02/03/21 12:18 Pulse Rate 73 02/03/21 12:18 Respiratory Rate 17 02/03/21 12:18 Blood Pressure 134/66 02/03/21 12:18 Pulse Oximetry 97 02/03/21 12:18 MDM - General Adult MDM Narrative: Medical decision making narrative: 80-year-old female presented to the emergency room with 10 episodes of black tarry stool. Hemoglobin of 12.0. Case was dsicucsed with Dr. Iverson who recommended an EGD study. This was discussed with Dr. Caballero who will follow patient. Status post Protonix 80mg. HDS. Will be admitted for melena/GI bleeding workup Disposition: Admission Lab Data: Labs: Lab Results 02/03/21 02/03/21 02/03/21 12:37 12:37 12:37 WBC 13.3 10^3/uL H 10 ^3/uL (4.0-10.0) RBC 4.57 10^6/uL 10^6 /uL (4.1-5.3) Hgb 12.0 g/dL g/dL (11.5-15.3) Hct 39.5 % % (37.0-47.0) MCV 86.4 fl fl (81-99) MCH 26.3 pg L pg (28.0-34.0) MCHC 30.4 g/dL g/dL (30.0-36.0) RDW 17.0 % H % (12.1-15.1) Plt Count 380 10^3/cmm 10^3 /cmm (130-400) MPV 9.4 fL fL (7.4-10.4) Neut % (Auto) 70.8 % % Lymph % (Auto) 7.6 % % [place] % (Auto) 6.7 % % Eos % (Auto) 13.6 % % Baso % (Auto) 0.5 % % Neut # (Auto) 9.37 10^3/uL H 10 ^3/uL (1.8-7.7) Lymph # (Auto) 1.0 10^3/uL 10^3/ uL (0.8-4.8) [place] # (Auto) 0.9 10^3/uL 10^3/ uL (0.2-0.9) Eos # (Auto) 1.8 10^3/uL H 10^ 3/uL (0.0-0.8) Baso # (Auto) 0.1 10^3/uL 10^3/ uL (0.0-0.1) Nucleated RBC % (a uto) 0 % % Nucleated RBCs # 0.0 /100WBC /100W BC PT 13.40 SECONDS SEC ONDS (12.1-14.9) INR 0.99 (0.8-1.2) APTT 29.4 SECONDS SECO NDS (23.9-36.7) Sodium 139 mmol/L mmol/L (136-145) Potassium 3.9 mmol/L mmol/L (3.5-5.1) Chloride 106 mmol/L mmol/L (98-107) Carbon Dioxide 19 mmol/L L mmol/ L (22-29) Anion Gap 17.9 (5-19) BUN 15 mg/dL mg/dL (8-23) Creatinine 1.0 mg/dL H mg/dL (0.5-0.9) GFR Calculation Not Reportable Glucose 83 mg/dL mg/dL (65-115) Calculated Osmolal ity 288 mOsm/kg mOsm/ kg (285-295) Calcium 8.7 mg/dL mg/dL (8.5-10.5) Total Bilirubin 0.3 mg/dL mg/dL (0.15-1.2) AST 9 U/L U/L (0-32) ALT < 5 U/L U/L (0-33) Alkaline Phosphata se 128 IU/L H IU/L (35-105) Total Protein 6.3 g/dL L g/dL (6.6-8.7) Albumin 4.0 g/dL g/dL (3.5-5.2) Globulin 2.3 g/dL g/dL (1.3-4.6) Lipase 55 U/L U/L (13-60) Discharge Plan Discharge Patient Disposition: Admitted As Inpatient Clinical Impression: Acute GI bleeding, Melena Condition: Stable Coding Level of Care Code ED Oracle Application Architect for Chaitanya Canchola
[2021-02-03 12:50] LABS: Basophils # 0.1 10^3/uL (0.0-0.1); Basophils % 0.5 %; Eosinophils # 1.8 10^3/uL (0.0-0.8); Eosinophils % 13.6 %; Hematocrit 39.5 % (37.0-47.0); Lymphocytes % 7.6 %; Mean Corpuscular HGB Conc 30.4 g/dL (30.0-36.0); Mean Corpuscular Hemoglobin 26.3 pg (28.0-34.0); Mean Corpuscular Volume 86.4 fl (81-99); Mean Platelet Volume 9.4 fL (7.4-10.4); Monocytes # 0.9 10^3/uL (0.2-0.9); Monocytes % 6.7 %; Neutrophils # 9.37 10^3/uL (1.8-7.7); Neutrophils % 70.8 %; Nucleated Red Blood Cells % 0 %; Platelet Count 380 10^3/cmm (130-400); Red Blood Count 4.57 10^6/uL (4.1-5.3); White Blood Count 13.3 10^3/uL (4.0-10.0)
[2021-02-03 13:00] VITALS: BP 134/66; PULSE 71; RESP 18; O2SAT 97
[2021-02-03 13:10] LABS: INR 0.99 (0.8-1.2)
[2021-02-03 13:11] LABS: Partial Thromboplastin Time 29.4 SECONDS (23.9-36.7)
[2021-02-03 13:15] LABS: Alanine Aminotransferase < 5 U/L (0-33); Alkaline Phosphatase 128 IU/L (35-105); Anion Gap 17.9 (5-19); Aspartate Amino Transferase 9 U/L (0-32); Blood Urea Nitrogen 15 mg/dL (8-23); Calcium 8.7 mg/dL (8.5-10.5); Carbon Dioxide 19 mmol/L (22-29); Chloride 106 mmol/L (98-107); Globulin 2.3 g/dL (1.3-4.6); Glucose 83 mg/dL (65-115); Lipase 55 U/L (13-60); Osmolality Calculated 288 mOsm/kg (285-295); Potassium 3.9 mmol/L (3.5-5.1); Sodium 139 mmol/L (136-145); Total Bilirubin 0.3 mg/dL (0.15-1.2); Total Protein 6.3 g/dL (6.6-8.7)
[2021-02-03 13:57] VITALS: BP 124/77; PULSE 73; RESP 18; O2SAT 93
[2021-02-03 14:00] VITALS: BP 110/68; PULSE 73; RESP 18; O2SAT 96
[2021-02-03] MEDS: pantoprazole 40 mg SDV 80 MG IVP (14:03)
[2021-02-03] MEDS: sodium chloride 0.9% (100 ml) 100 ML (14:04)
[2021-02-03 15:00] VITALS: BP 122/68; PULSE 71; RESP 20; O2SAT 95
--- NOTE | 2021-02-03 15:13 | PC.PHAR ---
pt states she takes care of her own medications-pt states she doesnt take metoprolol tart 25mg bid filled on 01/13/21 90d/s pt states she takes carvedilol-
[2021-02-03 15:24] VITALS: BP 122/82; PULSE 77; RESP 18; O2SAT 98
--- NOTE | 2021-02-03 15:33 | P.CONIM_ITS ---
Providers/Reason For Consult Consulting Physician/Specialty*: Internal medicine Reason for Consult*: Melena Attending Physician: Chris Couch MD Primary Care Provider: Hoa Stock History of Present Illness History of Present Illness Pauline Castle is a 80 year old female with past medical history of hypertension, dyslipidemia, CAD post angioplasty in 2010, chronic GI bleed for which she has had multiple EGDs and colonoscopy(as per patient over 30 of both) over the last 10 years with most recently last 1 year. As per the patient. Never able to find out any reason for a possible GI bleed. Last EGD was normal and colonoscopy they found 1 polyp which was partially removed. Patient states she usually takes Protonix which she is not been able to take for last few days. She started having occasional black tarry bowel movements since Tuesday. Bowel movements are occasionally soft. She denies any dizziness, headache, loss of consciousness, presyncope, nausea, vomiting, abdominal pain. Blood work in the ER showed a white count 13.3, hemoglobin of 12 with baseline of 12.1 2-1/2 months ago, platelet count of 380, INR of 0.99, creatinine of 1 with baseline of 1.1, BUN of 15, AST/ALT of 9/less than 5, alkaline phosphatase of 128 with baseline of 123, lipase of 55 Review of Systems General: Reports: 10 or more systems reviewed and unremarkable except in HPI and below Const: Denies: fever(s), chills, body aches, change in appetite, change in weight, malaise, night sweats, diaphoresis, change in sleep pattern, daytime sleepiness or snoring Eyes: Denies: change in vision, blurry vision, photophobia, eye discomfort or eye discharge ENMT: Denies: throat pain, enlarged tonsils, hoarseness, mouth pain, oral sores, dry mouth, tinnitus, nasal congestion or post nasal drip Card: Denies: chest pain, palpitations, irregular heart rhythm, edema, swelling of feet/ankles, lightheadedness, syncope, pre-syncope, dyspnea on exertion, orthopnea, leg pain with exertion or acrocyanosis Resp: Denies: dyspnea, productive cough, non-productive cough, wheezing, stridor, pain on inspiration, change in phlegm color, hemoptysis or chest congestion GI: Denies: abdominal pain, nausea, vomiting, hematemesis, coffee ground emesis, dysphagia, heartburn, diarrhea, constipation, bloating, GI cramping, change in bowel habits, pain on defecation, hematochezia or melena : Denies: flank pain, dysuria, urinary frequency, urinary urgency, urinary hesitancy, nocturia or hematuria Musc: Denies: neck pain, back pain, extremity pain, joint pain, joint swelling, joint redness, joint stiffness or limited range of motion Neuro: Denies: headache(s), numbness in extremities, weakness in extremities, sensory changes, lack of coordination, difficulty walking, frequent falls, dizziness, vertigo, confusion, Slurred speech present, difficulty communicating thoughts or seizure-like activity Psych: Denies: anxiety, depression, mood swings, panic attacks, hopelessness or irritability Endo: Denies: polyuria, polydipsia, tired all the time, cold intolerance, excessive sweating, flushing or heat intolerance Emre/Lymph: Denies: easy bruising or easy bleeding All/Imm: Denies: tongue swelling, facial swelling or acute wheezing Meds/Allergies Home Medications and Allergies Home Medications Medication Instructions Recorded Confirmed Last Taken Type alprazolam 0.25 mg PO BID PRN 10/12/19 02/03/21 04/06/20 History atorvastatin 20 mg PO DAILY@2100 10/12/19 02/03/21 02/02/21 History famotidine 40 mg PO BID@10/12/19 02/03/21 02/03/21 08:00 History fluticasone propion-salmeterol 1 inh INHALATION BID 10/12/19 02/03/21 10/11/19 History [Bretxela Inhub] levothyroxine 25 mcg PO QAM 10/12/19 02/03/21 02/03/21 08:00 History spironolactone 12.5 mg PO DAILY@10/12/19 02/03/21 02/03/21 08:00 History fluticasone propionate 50 1 - 2 spray INTRANASAL DAILY PRN 08/20/20 02/03/21 Unknown History mcg/actuation nasal spray,suspension loperamide 2 mg tablet 2 mg PO QID PRN 08/20/20 02/03/21 Unknown History nitroglycerin 0.4 mg sublingual 0.4 mg SUBLINGUAL Q5M PRN 08/20/20 02/03/21 Unknown History tablet carvedilol 6.25 mg tablet 9.375 mg PO BID #135 tab 10/24/20 02/03/21 02/03/21 08:00 Rx diphenhydramine HCl [Benadryl] 25 mg PO ONCE 02/03/21 02/03/21 02/02/21 History furosemide [Lasix] 20 mg PO EVERY OTHER DAY PRN 02/03/21 02/03/21 Unknown History pantoprazole 40 mg PO BID 30 Days #60 tab 02/03/21 Unknown Rx sucralfate [Carafate] 10 ml PO BID 28 Days #560 ml 02/03/21 Unknown Rx Allergies Allergy/AdvReac Type Severity Reaction Status Date / Time ondansetron [From Zofran] Allergy unknown Verified 02/03/21 12:17 promethazine [From Phenergan] Allergy Unknown Verified 02/03/21 12:17 sulfacetamide Allergy unknown Verified 02/03/21 12:17 PFSH Acute PFSH: Medical History (Updated 02/03/21 @ 15:47 by Chris Couch MD) Anemia Atherosclerosis of coronary artery CAD (coronary artery disease) Cardiac LV ejection fraction 30-35% CHF (congestive heart failure) Edema GI bleed Hyperlipidemia Hypertension LV dysfunction Shortness of breath Surgical History (Updated 02/03/21 @ 15:47 by Chris Couch MD) History of hip surgery History of PTCA Hx of appendectomy Hx of breast implants, bilateral Hx of hysterectomy Family History Father Hypertension Myocardial infarction CHF (congestive heart failure) CAD (coronary artery disease) Mother Myocardial infarction Denies family history of Diabetes Clotting disorder Dementia Chronic kidney disease (CKD) Suicide Anesthesia complication Bleeding disorder Lung disease Cancer Stroke Social History Smoking and tobacco status: former smoker Alcohol intake: never Vitals/I&O/Wt Last Vital Signs Temp 98.3 F 02/03/21 12:18 Pulse 77 02/03/21 15:24 Resp 18 02/03/21 15:24 BP 122/82 02/03/21 15:24 Pulse Ox 98 02/03/21 15:24 Weight last 48 hrs Weight 53.524 kg Physical Exam Narrative: EXAM NARRATIVE: EXAM NARRATIVE: General: No acute distress, AO x3, HEENT: PERRLA, pupils bilaterally equal and reactive Chest: Bilateral bronchial breath sounds, good equal air entry bilaterally CVS: S1-S2 regular, no murmurs, no tachycardia, no gallops, no rubs Abdomen: Soft, nontender, no organomegaly, bowel sounds present, morbidly obese Neuro: No focal deficits, no facial deformity, AO x3, power 5/5 in all limbs A&P Assessment and plan (1) Melena: Status: Acute (2) Hypertension: Status: Acute Qualifiers: Hypertension type: unspecified Qualified Code(s): I10 - Essential (primary) hypertension (3) Hyperlipidemia: Status: Acute Qualifiers: Hyperlipidemia type: mixed hyperlipidemia Qualified Code(s): E78.2 - Mixed hyperlipidemia (4) CHF (congestive heart failure): Status: Acute Qualifiers: Heart failure type: unspecified Heart failure chronicity: unspecified Qualified Code(s): I50.9 - Heart failure, unspecified (5) Anemia: Status: Acute Additional A&P Information Possible GI bleed: Patient is hemodynamically stable. Hemoglobin 12. Baseline 12.1. Patient does not have any sign of shock. No tachycardia, blood pressures stable. Discussed with patient that with concerns of ongoing melena patient will need repeat EGD and colonoscopy at is quite possible that he will not be able to find anything new given the fact that she has had multiple EGD and colonoscopy in the past without any signs of active bleed. We also discussed that patient would most likely need a capsule endoscopy which she is not able to afford as an outpatient and unfortunately we cannot do capsule endoscopy as an inpatient. Patient states she has been told in the past not to undergo any further EGD and colonoscopy going forward as he would not find anything new. Patient declining any EGD or colonoscopy currently. Hemoglobin stable. Discussed with the patient for possible discharge home on oral Protonix 40 twice daily along with Carafate before meals and at bedtime. Patient verbalized understanding. Medication sent to the pharmacy. Patient to follow-up with PCP within 1 week for repeat CBC and with Dr. Caballero within next 2 weeks Consult Attestations Medical Necessity Statement: Discharge home. Time Spent in Patient Care: Greater than 35 minutes (>than 50% of time spent in counselling and/or direct pt care on unit) . Coding Level of Care Code Acute Distance Learning Administrator for Chg Fwd Diagnoses Melena K92.1 Hypertension I10 Hypertension type: unspecified Hyperlipidemia E78.2 Hyperlipidemia type: mixed hyperlipidemia CHF (congestive heart failure) I50.9 Heart failure type: unspecified Heart failure chronicity: unspecified Anemia D64.9
[2021-02-03 15:49] LABS: Ferritin 494 ng/mL (15-150); Thyroid Stimulating Hormone 2.91 uIU/mL (0.27-4.20)
--- NOTE | 2021-02-03 15:50 | PC.NURSE ---
Call for Medicare ride home. [facility] #[id number]
--- NOTE | 2021-02-03 16:25 | PC.NURSE ---
Provided pt with food and blanket in the lobby for medicare ride
--- NOTE | 2021-02-09 11:39 | PC.SOCIAL ---
discharge follow up call made pt states i was kicked out, i had to wait 4 hours for a ride in the discharge room pt reports she doesn't want any follow up appointments made, she saw her pcp prior to admission and she has saw dr. tee multiple times and had 20 colonoscopies and doesn't wish to have another one.
== END 2021-02-03 16:16 | disposition home or self-care (01) ==
LOC: ER 14:59 → MEDSURG 15:21
PROVIDERS: Admitting Provider Student in an Organized Health Care Education/Training Program; Emergency Provider Emergency Medicine; PCP Nurse Practitioner Family; Visit Provider Student in an Organized Health Care Education/Training Program
DX: K92.2 Gastrointestinal hemorrhage, unspecified (principal); D64.9 Anemia, unspecified; I50.9 Heart failure, unspecified; E78.2 Mixed hyperlipidemia; I10 Essential (primary) hypertension; I25.10 Atherosclerotic heart disease of native coronary artery without angina pectoris; Z87.891 Personal history of nicotine dependence
CPT/HCPCS: 80053; 82728; 83690; 84443; 85025; 85610; 85730; 86850; 86900; 96365; 99285; C9113; G0378

== ENCOUNTER 2021-02-12 09:54 | Outpatient (CLI) | payer MEDICARE, MEDICAID, SELFPAY ==
[2021-02-12 11:16] LABS: Basophils # 0.1 10^3/uL (0.0-0.1); Basophils % 0.7 %; Eosinophils # 2.2 10^3/uL (0.0-0.8); Eosinophils % 17.1 %; Hematocrit 38.9 % (37.0-47.0); Hemoglobin 12.6 g/dL (11.5-15.3); Lymphocytes % 7.7 %; Mean Corpuscular HGB Conc 32.4 g/dL (30.0-36.0); Mean Corpuscular Hemoglobin 27.3 pg (28.0-34.0); Mean Corpuscular Volume 84.4 fl (81-99); Mean Platelet Volume 9.3 fL (7.4-10.4); Monocytes # 0.8 10^3/uL (0.2-0.9); Monocytes % 6.4 %; Neutrophils # 8.83 10^3/uL (1.8-7.7); Neutrophils % 67.3 %; Nucleated Red Blood Cells % 0 %; Platelet Count 402 10^3/cmm (130-400); Red Blood Count 4.61 10^6/uL (4.1-5.3); Red Cell Distribution Width 17.6 % (12.1-15.1); White Blood Count 13.1 10^3/uL (4.0-10.0)
[2021-02-12 11:49] LABS: Alanine Aminotransferase 6 U/L (0-33); Alkaline Phosphatase 139 IU/L (35-105); Anion Gap 15.4 (5-19); Aspartate Amino Transferase 13 U/L (0-32); Blood Urea Nitrogen 13 mg/dL (8-23); C Reactive Protein 14.8 mg/L (0.0-4.9); Calcium 8.7 mg/dL (8.5-10.5); Carbon Dioxide 21 mmol/L (22-29); Chloride 107 mmol/L (98-107); Ferritin 400 ng/mL (15-150); Globulin 2.8 g/dL (1.3-4.6); Glucose 96 mg/dL (65-115); Iron 77 ug/dL (37-145); Osmolality Calculated 290 mOsm/kg (285-295); Percent Saturation 29.9 % (20-50); Potassium 3.4 mmol/L (3.5-5.1); Sodium 140 mmol/L (136-145); Total Bilirubin 0.4 mg/dL (0.15-1.2); Total Iron Binding Capacity 257 mcg/dl; Total Protein 6.8 g/dL (6.6-8.7); Unsaturated Iron Binding 180 ug/dL (112-347)
[2021-02-13 14:00] LABS: Erythrocyte Sedimentation Rate 6 mm/hr (0-15)
--- NOTE | 2021-02-15 08:21 | ONC FU_ITS ---
Dr. Iverson Patient Follow-Up Note Patient: Pauline Castle Unit #: [id number]: 1940 Dicatated By: Freedom Iverson M.D.Date of Visit:Feb 12, 2021 Onc Med Follow-up/Prog Note Chief Complaint: Anemia. History of Present Illness: This is an 80 year-old woman with iron deficiency anemia. She has a history of hypertension, dyslipidemia, and coronary artery disease. She underwent coronary angioplasty/stent placement in 2009. Sometime after that she had an episode of GI bleeding, which apparently was confirmed by endoscopy to be a bleeding ulcer. I had seen her initially in July 2013 after she had been found to be severely anemic. She felt better following a transfusion of packed red blood cells, but her followup CBCs were still showing significant anemia. As of June 2013 her hemoglobin was still low at 6.2 g with hematocrit 27%. The red cell indices were hypochromic/microcytic with MCV 27 and MCH 64. White blood cell count normal at 5900 and platelet count was normal at 324,000. Serum iron was low at 11 mcg/dL. She had started oral iron supplementation with ferrous sulfate, but she had difficulty tolerating it due to nausea. I did opt to give her parenteral iron replacement with Venofer, which she completed in September 2013 to a total dose of 1800 mg. Her follow-up CBC in October 2013 showed hemoglobin up to 15 g with normal red cell indices. In August 2015 she was admitted to the hospital with another acute GI bleed. Her upper GI endoscopy showed only mild patchy gastritis. There was no evidence of ongoing mucosal bleeding. The duodenum appeared unremarkable. She was seen by Aundrea Zhang on 05/13/2016 with complaints of fatigue and cough. She was moderately anemic with hemoglobin 9.6 g and hematocrit 30%. The red cell indices were hypochromic/microcytic with MCV 68 and MCH 21. The white blood cell count was slightly elevated at 11,300 and the platelet count also was mildly elevated at 540,000. Transferrin saturation at that time was 5% and ferritin was low at 7.6 ng/mL. She was seen in the emergency room in [place] on 05/19/2016. At that time she also was found to have low potassium at 2.9 mmol/L. I had seen her for a follow-up visit on 05/21/2016. She was then given parenteral iron replacement with infusions of Injectafer on 05/21/2016 and on 05/28/2016. I had then seen her for a follow-up visit on 12/24/2019. She had been in the hospital again with GI bleeding, presumably secondary to Plavix. Her colonoscopy reportedly showed a polyp which was only partially excised. At the time of that visit she was still anemic with hemoglobin 9.1 g. Her serum iron studies showed transferrin saturation 5.5% and her ferritin was low at 6 ng/mL, consistent with iron deficiency. She was given parenteral iron replacement with 2 infusions of Injectafer. During initial follow-up she remained mildly anemic with hemoglobin in the range of 10 to 11 g, but with serum iron studies showing normal transferrin saturation. Her medical illnesses include hypertension, dyslipidemia, coronary artery disease, and GERD/peptic ulcer disease. Her records indicate that she also has chronic diastolic heart failure. She has history of smoking 1 pack of cigarettes daily for 40 years. She quit smoking in 2009. INTERIM HISTORY: At her follow-up visit on 09/01/2020 her hemoglobin was just borderline low at 12.3 g, though her serum iron studies still showed evidence of iron deficiency with transferrin saturation 12.0%. Her ferritin also was relatively low at 24 ng/mL. As of 12/03/2020 her hemoglobin was stable at 12.1 g. However, she continued to have significant fatigue, and as her her transferrin saturation was still low at 9.9%, I did opt to give her 1 additional infusion of Injectafer. It was administered on 01/14/2021. On 02/03/2021 she presented to the emergency room having developed recurrent melanotic stools. Hemoglobin was stable at 12.0 g and she was discharged home, as she was supposed to have any further GI endoscopy studies. She is seen for a follow-up visit. She continues to complain that she has no energy. Her ECOG score is 2. She also complains that she has no appetite, and she has been losing weight. She does not have fever. She does get a little sweating around her neck. She continues to complain that she has horrible itching. She is able to sleep for a few hours at night taking Benadryl. She gets no benefit with cetirizine in the daytime. She complains that she is really short of breath. She has only a little bit of cough. She does not complain of chest pain. She has not been having nausea. She still has acid reflux symptoms despite taking Protonix twice a day. Her stools now are mostly liquid. They are really dark brown, but not black. She complains that her bladder function is terrible and that she does not void very frequently. She has arthritis pain in her knees and shoulders. She very seldom has headache. She sometimes gets lightheaded. She has no numbness/paresthesia or other focal neurologic symptoms. Medications: Acetaminophen 1 Tablet (of 500 mg) Oral daily, Advair Diskus 1 Puff(s) (of 250-50 mcg/dose) Aerosol Powder, Breath Activated Inhalation b.i.d., ALPRAZolam 1 (0.25 mg) Tablet Oral daily PRN, Atorvastatin Calcium 1 Tablet (of 20 mg) Oral at bedtime, Carvedilol 1 Tablet (of 6.25 mg) Oral b.i.d., Cetirizine HCl 1 Tablet (of 10 mg) Oral daily PRN, Flonase 2 [place](s) (of 50 mcg/act) Suspension Nasal daily, Imodium A-D 1 Tablet (of 2 mg) Oral PRN, Levo-T 1 (25 mcg) Tablet Oral daily, Nitroglycerin 1 Tablet (of 0.4 mg) Tablet, sublingual Sublingual PRN, Pantoprazole Sodium 1 (40 mg) Tablet, enteric coated Oral b.i.d., Spironolactone 0.5 Tablet (of 25 mg) Oral daily Allergies: Phenergan Vital Signs: Performed on Feb 12, 2021 10:20 Height - 59.00 in Weight - 118.4 lbs (LOW) BSA - 1.48 sq.m BMI - 23.91 Temperature - 97.5 F (LOW) Pulse - 69 /min Respiration - 18 /min BP - 106/65 mm(hg) O2 Sat - 99 % Pain - 8 Fatigue - 10 Physical Examination: Constitutional - She looks pretty good generally, Eyes - Sclerae nonicteric. Conjunctivae clear, ENMT - No lesions noted in the oral cavity, Hematologic/Lymphatic - No cervical, clavicular, or axillary adenopathy, Respiratory - Lungs are clear with some decrease in air movement bilaterally, Cardiovascular - Heart rhythm is irregular. The rate is controlled. There is no murmur, gallop, or rub noted, Abdomen - Soft. Liver and spleen are not enlarged. There is no abdominal mass or ascites noted and there is no inguinal adenopathy, Extremities - No edema. There is localized swelling on the lateral aspect of the left ankle, which is chronic, Integumentary - There is erythema and there are residual effects of scratching and scattered excoriations, particularly on her back, Neurologic - No focal neurologic deficits noted. Lab/Imaging: Test performed on Feb 12, 2021 10:56 Ferritin 400 ng/mL Iron 77 mcg/dL Sodium 140 mmol/L Iron Binding Capacity (TIBC) 257 mcg/dl Potassium 3.4 mmol/L % Iron Saturation 29.9 % Chloride 107 mmol/L CO2 21 mmol/L UIBC 180 mcg/dL Anion Gap 15.4 BUN 13 mg/dL Creatinine 1.1 mg/dL Cr Clearance (Est) 33.4300 mL/min Glucose 96 mg/dL Osmolality - Calculated 290 mOsm/kg Calcium 8.7 mg/dL Protein, Total 6.8 g/dL Albumin 4.0 g/dL Globulin 2.8 g/dL Bilirubin, Total 0.4 mg/dL ALT (SGPT) 6 U/L AST (SGOT) 13 U/L Alkaline Phosphatase 139 IU/L ESR (Sed Rate) 6 mm/hr WBC 13.1 10 3/uL RBC 4.61 10 6/uL HGB 12.6 g/dL HCT 38.9 % MCV 84.4 fl MCH 27.3 pg MCHC 32.4 g/dL RDW 17.6 % Platelet Count 402 10 3/cmm MPV 9.3 fL Neutrophils 8.83 10 3/uL Lymphocytes 1.0 10 3/uL Monocytes 0.8 10 3/uL Eosinophils 2.2 10 3/uL Basophils 0.1 10 3/uL Neutrophil % 67.3 % Lymphocyte % 7.7 % Monocyte % 6.4 % Eosinophil % 17.1 % Basophils % 0.7 % NRBC % 0 % Problem List: 1. Patient with recurrent iron deficiency anemia, presumably due to GI blood loss, though an actual source of blood loss was not determined. She has had poor tolerance for oral iron. Her anemia previously had corrected following a course of parenteral iron replacement with Venofer, completed in September 2013. 2. Hypertension. 3. Dyslipidemia. 4. Coronary artery disease with previous angioplasty/stent placement. 5. GERD/peptic ulcer disease with previously documented bleeding ulcer. 6. She has chronic anxiety. Problems Addressed with this Encounter and Plan: 1. Patient with recurrent iron deficiency anemia, presumably due to GI blood loss, though an actual source of blood loss was not determined. She has had poor tolerance for oral iron. Her anemia previously had corrected following a course of parenteral iron replacement with Venofer, completed in September 2013. She was given parenteral iron replacement with infusions of Injectafer in May 2016 and again in December 2019. During her initial follow-up she had remained mildly anemic with hemoglobin in the range of 10 to 11 g, though with normal transferrin saturation. During subsequent follow-up her hemoglobin/hematocrit levels had been just borderline low, but I did opt to give her 1 additional infusion of Injectafer in January 2021, as she continued to complain that she had no energy and her serum iron studies were still consistent with iron deficiency. On 02/03/2021 she was seen in the emergency room with recurrent melena. Her hemoglobin went at that point was stable, and she was discharged home. She remains opposed to undergoing additional GI endoscopy studies, as multiple prior studies have shown no source for her GI blood loss. She indicates that her insurance will not cover a camera endoscopy, which would be the appropriate study for her at this juncture. I will revisit that issue with her insurance carrier. In the meantime, we will continue to monitor her blood counts and iron studies, and she will be given additional iron replacement as indicated. 2. She has developed severe, generalized itching. The cause has been uncertain, as she did not appear to have a primary underlying skin eruption. She has not yet seen a coke worker, apparently because of some scheduling issues, and she now has an appointment to be seen in April. In the meantime, I will have her try Seroquel 25 mg at bedtime. She can continue the Benadryl as needed. Signed By: Freedom Iverson M.D. <<Signature on File>>
== END 2021-02-12 09:55 | disposition home or self-care (01) ==
PROVIDERS: PCP Nurse Practitioner Family; Visit Provider Internal Medicine Medical Oncology
DX: D50.9 Iron deficiency anemia, unspecified (principal); I10 Essential (primary) hypertension; E78.5 Hyperlipidemia, unspecified; I25.10 Atherosclerotic heart disease of native coronary artery without angina pectoris; Z95.5 Presence of coronary angioplasty implant and graft; K21.9 Gastro-esophageal reflux disease without esophagitis; K27.7 Chronic peptic ulcer, site unspecified, without hemorrhage or perforation; F41.9 Anxiety disorder, unspecified; Z79.899 Other long term (current) drug therapy
CPT/HCPCS: 36415; 80053; 82728; 83540; 83550; 85025; 85651; 86140; 99214

== ENCOUNTER 2021-04-20 13:21 | Emergency (ER) | payer MEDICARE, MEDICAID, SELFPAY ==
[2021-04-20] VITALS (9 sets, daily range): BP systolic 117–139; BP diastolic 52–83; PULSE 79–88; RESP 14–23; TEMP 37.1; O2SAT 93–97; BMI 21.4
--- NOTE | 2021-04-20 13:23 | XRR_ITS ---
PROCEDURE INFORMATION: Exam: XR Chest Exam date and time: 04/20/2021 1:23 PM Age: 80 years old Clinical indication: Dyspnea TECHNIQUE: Imaging protocol: XR of the chest. Views: 1 view. COMPARISON: CR XR chest 1V portable [id number] 10/23/2020 3:22 PM FINDINGS: Tubes, catheters and devices: Calcified bilateral breast implants are present. Lungs: Unremarkable. No consolidation. Pleural spaces: Unremarkable. No pleural effusion. No pneumothorax. Heart/Mediastinum: Unremarkable. No cardiomegaly. Bones/joints: Unremarkable. Other findings: Comparison to prior examination similar findings seen XR/XR chest 1V portable [id number] IMPRESSION: 1. No acute findings. 2. Stable calcified breast implants.
--- NOTE | 2021-04-20 13:24 | ECG_ITS ---
[facility] Test Date: 2021-04-20 Pat Name: Pauline Castle Department: Room: Gender: Female Feather Boner: : 1940 Requested By: Idalmis Merchant Order Number: [id number] Dao MD: Migel Zuniga M.D. Measurements Intervals [place] Rate: 82 P: 47 AR: 159 QRS: -11 QRSD: 115 T: 20 QT: 365 QTc: 426 Interpretive Statements SINUS RHYTHM MODERATE INTRAVENTRICULAR CONDUCTION DELAY [110+ ms QRS DURATION] Compared to ECG 10/23/2020 18:10:43 Intraventricular conduction delay now present Myocardial infarct finding no longer present Electronically Signed On 04-20-2021 18:06:52 SCIENTIFIC INFORMATICS LEADER by Migel Zuniga M.D. [id number]
[2021-04-20] MEDS: sodium chloride 0.9% 500 ML IV (13:41)
--- NOTE | 2021-04-20 15:24 | ECG_ITS ---
[facility] Test Date: 2021-04-20 Pat Name: Pauline Castle Department: Room: Gender: Female Comp Field Case Manager: : 1940 Requested By: Idalmis Merchant Order Number: [id number] Dao MD: Migel Zuniga M.D. Measurements Intervals [place] Rate: 79 P: 47 VA: 165 QRS: -20 QRSD: 77 T: 16 QT: 377 QTc: 433 Interpretive Statements SINUS RHYTHM LOW QRS VOLTAGE IN PRECORDIAL LEADS [QRS DEFLECTION < 1.0 mV IN CHEST LEADS] MINIMAL ST DEPRESSION [0.025+ mV ST DEPRESSION] Compared to ECG 04/20/2021 13:37:47 Low QRS voltage now present ST (T wave) deviation now present Intraventricular conduction delay no longer present Electronically Signed On 04-20-2021 18:08:04 FORK LIFT TRUCK OPERATOR by Migel Zuniga M.D. [id number]
[2021-04-20 15:37] LABS: Basophils # 0.1 10^3/uL (0.0-0.1); Basophils % 0.6 %; Eosinophils # 1.8 10^3/uL (0.0-0.8); Eosinophils % 10.1 %; Hematocrit 44.1 % (37.0-47.0); Hemoglobin 13.7 g/dL (11.5-15.3); Lymphocytes # 1.2 10^3/uL (0.8-4.8); Lymphocytes % 6.9 %; Mean Corpuscular HGB Conc 31.1 g/dL (30.0-36.0); Mean Corpuscular Hemoglobin 27.6 pg (28.0-34.0); Mean Corpuscular Volume 88.9 fl (81-99); Mean Platelet Volume 10.1 fL (7.4-10.4); Monocytes # 1.1 10^3/uL (0.2-0.9); Monocytes % 6.2 %; Neutrophils # 13.22 10^3/uL (1.8-7.7); Neutrophils % 75.6 %; Nucleated Red Blood Cells % 0 %; Platelet Count 533 10^3/cmm (130-400); Red Blood Count 4.96 10^6/uL (4.1-5.3); Red Cell Distribution Width 14.9 % (12.1-15.1); White Blood Count 17.5 10^3/uL (4.0-10.0)
[2021-04-20 16:03] LABS: Troponin(5th) Baseline 23 ng/L (0-10)
[2021-04-20 16:10] LABS: Blood Urea Nitrogen 13 mg/dL (8-23); Calcium 9.1 mg/dL (8.5-10.5); Carbon Dioxide 23 mmol/L (22-29); Chloride 99 mmol/L (98-107); Glucose 99 mg/dL (65-115); NT Pro B Type Natriuretic Pept 513 pg/mL (0-450); Osmolality Calculated 288 mOsm/kg (285-295); Sodium 139 mmol/L (136-145)
[2021-04-20 16:14] LABS: Anion Gap 22.4 (5-19); Potassium 5.4 mmol/L (3.5-5.1)
--- NOTE | 2021-04-20 16:17 | W.ED.GENADLT ---
HPI - General Adult General: Chief complaint: Chest Pain Stated complaint: AFIB Time Seen by Provider: 04/20/21 13:23 History of Present Illness: Patient is an 80-year-old female with a history of CAD not on medication, CHF with EF 30 to 35%, prior history of GI bleed, scabies infection who presents the emergency room for evaluation of right-sided chest pain x 3 days that is present with coughing. Patient went to [place] [facility] and told staff that she has been having 3 days of right-sided chest pain occasionally sharp and pressure-like. Was told to come to the emergency room given concerns that this may be cardiac in origin. Patient tells me that she has been followed by Dr. Tsai. Last time she seen Dr. Tsai was 1 year ago. At that point, patient was placed on Plavix however given significant GI bleeding, patient was taken off the Plavix. Patient is not currently on any anticoagulation. Patient denies any nausea/vomiting, arm pain, shoulder pain or back pain. Patient has no fever or chills, abdominal complaints, nausea vomiting, diarrhea melena hematochezia currently. Onset: 3 days ago Duration:ongoing Location:home Severity:moderate Associated symptoms: Reports chest pain; Deny dyspnea, nausea, rash, palpitations or vomiting Review of Systems Const: Denies: fever(s) or chills Eyes: Denies: change in vision ENMT: Denies: mouth pain Card: Reports: chest pain; Denies: palpitations Resp: Reports: non-productive cough; Denies: dyspnea GI: Denies: abdominal pain, nausea, vomiting or diarrhea : Denies: dysuria Musc: Denies: extremity pain Skin/Breast: Denies: rash or new lesions Neuro: Denies: weakness in extremities Psych: Reports: other (Normal mood) Emre/Lymph: Denies: easy bruising PFSH ED PFSH: Medical History Anemia Atherosclerosis of coronary artery Atypical chest pain CAD (coronary artery disease) Cardiac LV ejection fraction 30-35% CHF (congestive heart failure) Edema GI bleed Hyperlipidemia Hypertension LV dysfunction Melena Palpitations Paroxysmal atrial tachycardia Shortness of breath Surgical History History of hip surgery History of PTCA Hx of appendectomy Hx of breast implants, bilateral Hx of hysterectomy Family History Father Hypertension Myocardial infarction CHF (congestive heart failure) CAD (coronary artery disease) Mother Myocardial infarction Denies family history of Diabetes Clotting disorder Dementia Chronic kidney disease (CKD) Suicide Anesthesia complication Bleeding disorder Lung disease Cancer Stroke Social History Smoking and tobacco status: former smoker Alcohol intake: never Physical Exam Const: COMMON NORMALS: alert HENMT: COMMON NORMALS: atraumatic HEAD & SCALP: atraumatic MOUTH: moist mucous membranes not abnormal Eye: COMMON NORMALS: EOMs intact bilaterally and conjunctivae normal CONJUNCTIVA: Yes conjunctivae normal Neck/C-Spine: COMMON NORMALS: full ROM and supple Resp: COMMON NORMALS: normal respiratory effort and clear to auscultation bilaterally AUSCULTATION: clear to auscultation bilaterally Cardio: COMMON NORMALS: regular rate RATE: regular rate GI: COMMON NORMALS: Soft to palpation and non-tender PALPATION: Yes Soft to palpation Extremity: COMMON NORMALS: full ROM Neuro: SENSORIUM/ORIENTATION: Yes alert MOTOR EXAM: No Abnormal motor strength present and Other motor observations present (no focal motor deficits) Psych: COMMON NORMALS: speech normal SPEECH: Yes normal speech MOOD & AFFECT: Yes euthymic mood Course Vital Signs: Vital signs: Vital Signs Temperature 98.7 F 04/20/21 13:22 Pulse Rate 87 04/20/21 19:12 Respiratory Rate 21 H 04/20/21 19:12 Blood Pressure 128/82 04/20/21 19:12 Pulse Oximetry 94 04/20/21 19:12 MDM - General Adult Medical Decision Making 80-year-old female with a history of CAD, hypertension presenting to the emergency room with cough and right-sided chest pain x3 days with cough. On physical exam, patient has clear lungs. Patient is in normal sinus rhythm. No signs of atrial fibrillation today. Rest of physical exam within normal limit. Chest x-ray within normal limit. Patient is not actively complaining of chest pain. EKG and troponin x2 are within normal limit. At present, given the presence of chest pain with cough, this is unlikely to be ACS with reassuring values. However, I cannot entirely rule out the possibility of unstable angina since patient has not been on any medical therapy given concerns for GI bleeding. At 7:30pm I performed shared decision-making with patient regarding admission versus discharge today, and patient prefers to be discharged. I have discussed given patient's risk factors that she would better off admitted to the hospital. However, on hearing this, patient says that she does not like to do a chemical stress test and would rather follow-up with Dr. Tsai in clinic to be evaluated for possible unstable angina. I explained the risks of leaving the hospital today including lethal arrythemia, [place], and even . Patient verbalizes understanding of these discussed risk and elect for the alternative of following up earlier next week for stress test on Tuesday or Tuesday and to see Dr. Tsai in clinic. Patient verbalizes understanding to return for any worsening symptoms including chest pain, dyspnea, fatigue, arm pain/jaw pain/back pain or any new or concerning issues. No suspicion for aortic dissection given no widened mediastinum, 2+ upper extremity pulses, or tearing pain. No suspicion for PE given no pleuritic chest pain, recent immobilization or surgery hemoptysis, or other VTE risk factors. EKG is non-ischemic. XR normal. I have given patient follow up with our casework manager to be seen by our outpatient Cardiology Dr. Tsai for management of ACS. Patient aware of a call from our casework manager to schedule for appointment(s) and verbalizes understanding of the importance of following up. Rx isosorbide nitrate Disposition: Discharge. Patient counseled regarding diagnostic impression, treatment plan. Patient given ED strict return precautions to return for continuation, worsening, or development of new symptoms. Instructed to f/u w/ PCP regarding symptoms today. Patient verbalized understanding. Lab Data : 04/20/21 13:30 04/20/21 13:30 Radiology Impressions Chest X-Ray 04/20/21 13:23 IMPRESSION: 1. No acute findings. 2. Stable calcified breast implants. Laboratory Results WBC 17.5 10^3/uL (4.0-10.0) H 04/20/21 13:30 RBC 4.96 10^6/uL (4.1-5.3) 04/20/21 13:30 Hgb 13.7 g/dL (11.5-15.3) 04/20/21 13:30 Hct 44.1 % (37.0-47.0) 04/20/21 13:30 MCV 88.9 fl (81-99) 04/20/21 13:30 MCH 27.6 pg (28.0-34.0) L 04/20/21 13:30 MCHC 31.1 g/dL (30.0-36.0) 04/20/21 13:30 RDW 14.9 % (12.1-15.1) 04/20/21 13:30 Plt Count 533 10^3/cmm (130-400) H 04/20/21 13:30 MPV 10.1 fL (7.4-10.4) 04/20/21 13:30 Neut % (Auto) 75.6 % 04/20/21 13:30 Lymph % (Auto) 6.9 % 04/20/21 13:30 [place] % (Auto) 6.2 % 04/20/21 13:30 Eos % (Auto) 10.1 % 04/20/21 13:30 Baso % (Auto) 0.6 % 04/20/21 13:30 Neut # (Auto) 13.22 10^3/uL (1.8-7.7) H 04/20/21 13:30 Lymph # (Auto) 1.2 10^3/uL (0.8-4.8) 04/20/21 13:30 [place] # (Auto) 1.1 10^3/uL (0.2-0.9) H 04/20/21 13:30 Eos # (Auto) 1.8 10^3/uL (0.0-0.8) H 04/20/21 13:30 Baso # (Auto) 0.1 10^3/uL (0.0-0.1) 04/20/21 13:30 Nucleated RBC % (auto) 0 % 04/20/21 13:30 Nucleated RBCs # 0.0 /100WBC 04/20/21 13:30 Sodium 139 mmol/L (136-145) 04/20/21 13:30 Potassium 5.4 mmol/L (3.5-5.1) H 04/20/21 13:30 Chloride 99 mmol/L (98-107) 04/20/21 13:30 Carbon Dioxide 23 mmol/L (22-29) 04/20/21 13:30 Anion Gap 22.4 (5-19) H 04/20/21 13:30 BUN 13 mg/dL (8-23) 04/20/21 13:30 Creatinine 1.1 mg/dL (0.5-0.9) H 04/20/21 13:30 GFR Calculation Not Reportable 04/20/21 13:30 Glucose 99 mg/dL (65-115) 04/20/21 13:30 Calculated Osmolality 288 mOsm/kg (285-295) 04/20/21 13:30 Calcium 9.1 mg/dL (8.5-10.5) 04/20/21 13:30 Troponin T Baseline 23 ng/L (0-10) H 04/20/21 13:30 Troponin T 120 Minute 16.53 ng/L (0-10) H 04/20/21 16:45 Delta Troponin T -6.47 ABS# (0-10) L 04/20/21 16:45 NT-Pro-B Natriuret Pep 513 pg/mL (0-450) H 04/20/21 13:30 Imaging Data Other Imaging: Radiologist's impression: [facility] [address] XRay Report Signed Patient: Pauline Castle Unit #: [id number] : 1940 Age/Sex: 80 / F ADM Date: 04/20/21 Loc: ER Room/Bed: Attending Dr: Ordering Provider/Ordering MD: Idalmis Merchant MD Date of Service: 04/20/21 Procedure(s): XR chest 1V portable [id number] Accession Number(s): [id number] Report Number: [id number] PROCEDURE INFORMATION: Exam: XR Chest Exam date and time: 04/20/2021 1:23 PM Age: 80 years old Clinical indication: Dyspnea TECHNIQUE: Imaging protocol: XR of the chest. Views: 1 view. COMPARISON: CR XR chest 1V portable [id number] 10/23/2020 3:22 PM FINDINGS: Tubes, catheters and devices: Calcified bilateral breast implants are present. Lungs: Unremarkable. No consolidation. Pleural spaces: Unremarkable. No pleural effusion. No pneumothorax. Heart/Mediastinum: Unremarkable. No cardiomegaly. Bones/joints: Unremarkable. Other findings: Comparison to prior examination similar findings seen XR/XR chest 1V portable [id number] IMPRESSION: 1. No acute findings. 2. Stable calcified breast implants. ? Dictated By: Sha Batsita Signed By: Sha Batista Signed Date/Time: 04/20/21 1444 DD/ 1323 Discharge Plan Discharge Condition: Stable Prescriptions: No Action loperamide [Imodium A-D] 2 mg tablet 2 mg PO QID PRN (Reason: Diarrhea) 0RF nitroglycerin [Nitrostat] 0.4 mg tablet, sublingual 0.4 mg sublingual Q5M PRN (Reason: Chest Pain) 0RF Rx Instructions: do not exceed 3 doses per episode fluticasone propionate [Flonase Allergy Relief] 50 mcg/actuation spray,suspension 1 - 2 spray intranasal DAILY PRN (Reason: Allergy Symptoms) 0RF Rx Instructions: administer into each nostril gabapentin 300 mg capsule 300 mg PO DAILY 0RF triamcinolone acetonide 0.1 % ointment 1 applic topical DAILY 0RF permethrin 5 % cream 1 applic topical .q 7 days Qty: 60 1RF Rx Instructions: Apply from neck down to feet. Leave on overnight and rinse in the morning. Repeat in 1 week carvedilol 6.25 mg tablet 9.375 mg PO BID Qty: 135 3RF Rx Instructions: must administer with a meal/food fluticasone propion-salmeterol [Wixela Inhub] 250-50 mcg/dose Blister With Device 1 inh INHALATION BID 0RF atorvastatin 20 mg Tablet 20 mg PO DAILY@2100 0RF famotidine 40 mg Tablet 40 mg PO BID@09,21 0RF spironolactone 25 mg Tablet 12.5 mg PO DAILY@09 0RF levothyroxine 25 mcg Tablet 25 mcg PO QAM 0RF alprazolam 0.25 mg Tablet 0.25 mg PO BID PRN (Reason: Anxiety) 0RF Benadryl 25 mg Capsule 25 mg PO ONCE 0RF Lasix 20 mg Tablet 20 mg PO EVERY OTHER DAY PRN (Reason: Edema) 0RF pantoprazole 40 mg tablet,delayed release (DR/EC) 40 mg PO BID 30 Days Qty: 60 0RF Referrals: Hoa Stock [Primary Care Provider] - Coding Level of Care Code ED Broke Man for Chg Fwd Exam Comprehensive
[2021-04-20 17:43] LABS: Troponin 5 2HR 16.53 ng/L (0-10)
[2021-04-20 17:52] LABS: Troponin 5 2HR Delta -6.47 ABS# (0-10)
--- NOTE | 2021-04-20 18:49 | PC.NURSE ---
PATIENT GIVEN FOOD.
--- NOTE | 2021-04-22 11:40 | DCPLANNER ---
Addendum entered by Maribell Roe 05/01/21 10:26: Patients appointment was rescheduled for Friday, May 07, 2021. Original Note: manager mountain had message to schedule a follow up appointment for patient with [facility]. manager mountain called [facility], spoke with Dinah, gave clinic patients information. A follow up appointment was scheduled for April at 8:15 with [facility]. manager mountain called patients daughter and gave her the appointment information.
--- NOTE | 2021-05-07 14:42 | DCPLANNER ---
Patient had a follow up appointment scheduled for 05.06.21 with [facility] - patient did not attend appointment.
== END 2021-04-20 20:13 | disposition home or self-care (01) ==
PROVIDERS: Emergency Provider Emergency Medicine; PCP Nurse Practitioner Family
DX: R07.9 Chest pain, unspecified (principal); I25.10 Atherosclerotic heart disease of native coronary artery without angina pectoris; I11.0 Hypertensive heart disease with heart failure; I50.9 Heart failure, unspecified; E78.5 Hyperlipidemia, unspecified; Z87.891 Personal history of nicotine dependence
CPT/HCPCS: 71045; 80048; 83880; 84484; 85025; 93005; 96360; 99284; J7040

== ENCOUNTER → 2021-05-05 12:54 | Outpatient (BNVA) | payer MEDICARE, MEDICAID, SELFPAY | PROVIDERS: PCP Nurse Practitioner Family; Visit Provider Nurse Practitioner | DX: R39.9 Unspecified symptoms and signs involving the genitourinary system | CPT/HCPCS: 81000 ==

== ENCOUNTER 2021-06-03 13:15 | Outpatient (CLI) | payer MEDICARE, MEDICAID, SELFPAY ==
[2021-06-03 13:45] LABS: Basophils # 0.1 10^3/uL (0.0-0.1); Basophils % 0.5 %; Eosinophils # 2.4 10^3/uL (0.0-0.8); Eosinophils % 18.6 %; Hematocrit 38.8 % (37.0-47.0); Hemoglobin 12.2 g/dL (11.5-15.3); Lymphocytes # 1.2 10^3/uL (0.8-4.8); Lymphocytes % 9.4 %; Mean Corpuscular HGB Conc 31.4 g/dL (30.0-36.0); Mean Corpuscular Hemoglobin 26.7 pg (28.0-34.0); Mean Corpuscular Volume 84.9 fl (81-99); Mean Platelet Volume 8.7 fL (7.4-10.4); Monocytes # 1.1 10^3/uL (0.2-0.9); Monocytes % 8.7 %; Neutrophils # 7.93 10^3/uL (1.8-7.7); Neutrophils % 61.7 %; Nucleated Red Blood Cells % 0 %; Platelet Count 501 10^3/cmm (130-400); Red Blood Count 4.57 10^6/uL (4.1-5.3); Red Cell Distribution Width 13.6 % (12.1-15.1); White Blood Count 12.8 10^3/uL (4.0-10.0)
[2021-06-03 14:09] LABS: Alanine Aminotransferase 7 U/L (0-33); Albumin Level 3.7 g/dL (3.5-5.2); Alkaline Phosphatase 118 IU/L (35-105); Anion Gap 15.6 (5-19); Aspartate Amino Transferase 13 U/L (0-32); Blood Urea Nitrogen 11 mg/dL (8-23); Calcium 9.6 mg/dL (8.5-10.5); Carbon Dioxide 25 mmol/L (22-29); Chloride 101 mmol/L (98-107); Globulin 3.2 g/dL (1.3-4.6); Glucose 88 mg/dL (65-115); Iron 27 ug/dL (37-145); Osmolality Calculated 283 mOsm/kg (285-295); Percent Saturation 12.6 % (20-50); Potassium 4.6 mmol/L (3.5-5.1); Sodium 137 mmol/L (136-145); Total Bilirubin 0.3 mg/dL (0.15-1.2); Total Iron Binding Capacity 213 mcg/dl; Total Protein 6.9 g/dL (6.6-8.7); Unsaturated Iron Binding 186 ug/dL (112-347)
--- NOTE | 2021-06-07 12:14 | ONC FU_ITS ---
Aundrea Zhang Progress Note Patient: Pauline Castle Unit #: [id number]: [id number] Dicatated By: Aundrea Zhang N.P.Date of Visit:Jun 03, 2021 Onc MED Follow-up/Prog Note Chief Complaint: Anemia. History of Present Illness: This is an 80 year-old woman with iron deficiency anemia. She has a history of hypertension, dyslipidemia, and coronary artery disease. She underwent coronary angioplasty/stent placement in 2009. Sometime after that she had an episode of GI bleeding, which apparently was confirmed by endoscopy to be a bleeding ulcer. I had seen her initially in July 2013 after she had been found to be severely anemic. She felt better following a transfusion of packed red blood cells, but her followup CBCs were still showing significant anemia. As of June 2013 her hemoglobin was still low at 6.2 g with hematocrit 27%. The red cell indices were hypochromic/microcytic with MCV 27 and MCH 64. White blood cell count normal at 5900 and platelet count was normal at 324,000. Serum iron was low at 11 mcg/dL. She had started oral iron supplementation with ferrous sulfate, but she had difficulty tolerating it due to nausea. I did opt to give her parenteral iron replacement with Venofer, which she completed in September 2013 to a total dose of 1800 mg. Her follow-up CBC in October 2013 showed hemoglobin up to 15 g with normal red cell indices. In August 2015 she was admitted to the hospital with another acute GI bleed. Her upper GI endoscopy showed only mild patchy gastritis. There was no evidence of ongoing mucosal bleeding. The duodenum appeared unremarkable. She was seen by Aundrea Zhang on 05/13/2016 with complaints of fatigue and cough. She was moderately anemic with hemoglobin 9.6 g and hematocrit 30%. The red cell indices were hypochromic/microcytic with MCV 68 and MCH 21. The white blood cell count was slightly elevated at 11,300 and the platelet count also was mildly elevated at 540,000. Transferrin saturation at that time was 5% and ferritin was low at 7.6 ng/mL. She was seen in the emergency room in [place] on 05/19/2016. At that time she also was found to have low potassium at 2.9 mmol/L. I had seen her for a follow-up visit on 05/21/2016. She was then given parenteral iron replacement with infusions of Injectafer on 05/21/2016 and on 05/28/2016. I had then seen her for a follow-up visit on 12/24/2019. She had been in the hospital again with GI bleeding, presumably secondary to Plavix. Her colonoscopy reportedly showed a polyp which was only partially excised. At the time of that visit she was still anemic with hemoglobin 9.1 g. Her serum iron studies showed transferrin saturation 5.5% and her ferritin was low at 6 ng/mL, consistent with iron deficiency. She was given parenteral iron replacement with 2 infusions of Injectafer. During initial follow-up she remained mildly anemic with hemoglobin in the range of 10 to 11 g, but with serum iron studies showing normal transferrin saturation. Her medical illnesses include hypertension, dyslipidemia, coronary artery disease, and GERD/peptic ulcer disease. Her records indicate that she also has chronic diastolic heart failure. She has history of smoking 1 pack of cigarettes daily for 40 years. She quit smoking in 2009. INTERIM HISTORY: At her follow-up visit on 09/01/2020 her hemoglobin was just borderline low at 12.3 g, though her serum iron studies still showed evidence of iron deficiency with transferrin saturation 12.0%. Her ferritin also was relatively low at 24 ng/mL. As of 12/03/2020 her hemoglobin was stable at 12.1 g. However, she continued to have significant fatigue, and as her her transferrin saturation was still low at 9.9%, I did opt to give her 1 additional infusion of Injectafer. It was administered on 01/14/2021. On 02/03/2021 she presented to the emergency room having developed recurrent melanotic stools. Hemoglobin was stable at 12.0 g and she was discharged home, as she was supposed to have any further GI endoscopy studies. Patient presents today for a follow-up visit. She continues to complain of constant fatigue and wears out easily. Her appetite is fair. She denies fever, chills, night sweats. She denies sinus drainage or sore throat. No shortness of breath or cough. Her heartburn is controlled with the Protonix. She has diarrhea on and off but has not noted any blood in her stool. She is complaining of right hip pain and a rash that hurts when she touches it. She also complains of a rash all over her body that itches constantly. She was evaluated by dermatology who diagnosed her with scabies. She states that she has been treated with permethrin a couple of times but without resolution. She denies headache or dizziness. Review Of Symptoms: See above Past Medical History: Anxiety/depression Coronary artery disease Dyslipidemia Gastroesophageal reflux disease Hypertension Past Surgical History: Covid vaccine #2 in 2020 Covid vaccine #1 in 2020 Coronary angioplasty/stent placement in 2009 Silicone breast implants in 1974 Hysterectomy in 1969 Appendectomy in 194 Allergies: Phenergan Medications: Acetaminophen 1 Tablet (of 500 mg) Oral daily Advair Diskus 1 Puff(s) (of 250-50 mcg/dose) Aerosol Powder, Breath Activated Inhalation b.i.d. ALPRAZolam 1 (0.25 mg) Tablet Oral daily PRN Atorvastatin Calcium 1 Tablet (of 20 mg) Oral at bedtime Carvedilol 1 Tablet (of 6.25 mg) Oral b.i.d. Cetirizine HCl 1 Tablet (of 10 mg) Oral daily PRN Flonase 2 [place](s) (of 50 mcg/act) Suspension Nasal daily Imodium A-D 1 Tablet (of 2 mg) Oral PRN Levo-T 1 (25 mcg) Tablet Oral daily Nitroglycerin 1 Tablet (of 0.4 mg) Tablet, sublingual Sublingual PRN Pantoprazole Sodium 1 (40 mg) Tablet, enteric coated Oral b.i.d. Spironolactone 0.5 Tablet (of 25 mg) Oral daily Family History: Ms. Castle's mother at age 91: medical history includes heart attack. Ms. Castle's father at age 81: heart attack. Ms. Castle's maternal grandmother is . Ms. Castle has 2 brothers: 2 . Family history is significant for both parents having of heart attack, father at age 81 and mother at age 91. A brother also of heart attack, age 73. Social History: Ms. Castle is and she is retired. Ms. Castle quit smoking 11 years ago but had smoked 1.0 pack/day for 50 years. Ms. Castle reports the following support systems: lives with spouse, significant other, family, or friends, lives in own house, supportive family/friends willing to assist with needs, and adequate transportation available for expected visits. Her diet consists of regular meals. She indicates her activity level as: daily activities. Physical Examination: Performed on Jun 03, 2021 15:31: Height - 59.00 in, Weight - 105.0 lbs (LOW), BSA - 1.40 sq.m, BMI - 21.21, Temperature - 97.9 F (LOW), Pulse - 73 /min, Respiration - 18 /min, BP - 116/68 mm(hg), O2 Sat - 97 %, Pain - 6, and Fatigue - 9. Performance Status: 2 - Ambulatory/capable of all self-care, unable to perform any work activities. Up and about more than 50% of waking hours. (ECOG) Constitutional Alert, cooperative, oriented. Mood and affect appropriate. Appears close to chronological age. Well nourished. Well developed. Head Normocephalic; no scars. Respiratory Lungs are clear to auscultation without rhonchi or wheezing. Cardiovascular Regular rate and rhythm of heart without murmurs, gallops or rubs. Abdomen Non-tender, non-distended, no masses, ascites or hepatosplenomegaly. Good bowel sounds. No guarding or rebound tenderness. Musculoskeletal No tenderness or swelling, normal range of motion without obvious weakness. Integumentary Maculopapular rash various areas on body, especially aroun waist and extremities. Right hip with vesicular rash that is painful to touch. Psychiatric Alert and oriented times three. Coherent speech. Verbalizes understanding of our discussions today. Laboratory: Test performed on Jun 03, 2021 13:35 Iron 27 mcg/dL Sodium 137 mmol/L Iron Binding Capacity (TIBC) 213 mcg/dl Potassium 4.6 mmol/L % Iron Saturation 12.6 % Chloride 101 mmol/L CO2 25 mmol/L UIBC 186 mcg/dL Anion Gap 15.6 BUN 11 mg/dL Creatinine 1.0 mg/dL Cr Clearance (Est) 32.61 mL/min Glucose 88 mg/dL Osmolality - Calculated 283 mOsm/kg Calcium 9.6 mg/dL Protein, Total 6.9 g/dL Albumin 3.7 g/dL Globulin 3.2 g/dL Bilirubin, Total 0.3 mg/dL ALT (SGPT) 7 U/L AST (SGOT) 13 U/L Alkaline Phosphatase 118 IU/L WBC 12.8 10 3/uL RBC 4.57 10 6/uL HGB 12.2 g/dL HCT 38.8 % MCV 84.9 fl MCH 26.7 pg MCHC 31.4 g/dL RDW 13.6 % Platelet Count 501 10 3/cmm MPV 8.7 fL Neutrophils 7.93 10 3/uL Lymphocytes 1.2 10 3/uL Monocytes 1.1 10 3/uL Eosinophils 2.4 10 3/uL Basophils 0.1 10 3/uL Neutrophil % 61.7 % Lymphocyte % 9.4 % Monocyte % 8.7 % Eosinophil % 18.6 % Basophils % 0.5 % NRBC % 0 % Test performed on Feb 12, 2021 10:56 Ferritin 400 ng/mL ESR (Sed Rate) 6 mm/hr Impression: 1. Patient with recurrent iron deficiency anemia, presumably due to GI blood loss, though an actual source of blood loss was not determined. She has had poor tolerance for oral iron. Her anemia previously had corrected following a course of parenteral iron replacement with Venofer, completed in September 2013. 2. Hypertension. 3. Dyslipidemia. 4. Coronary artery disease with previous angioplasty/stent placement. 5. GERD/peptic ulcer disease with previously documented bleeding ulcer. 6. She has chronic anxiety. Plan: 1. Patient with recurrent iron deficiency anemia, presumably due to GI blood loss, though an actual source of blood loss was not determined. She has had poor tolerance for oral iron. Her anemia previously had corrected following a course of parenteral iron replacement with Venofer, completed in September 2013. She was given parenteral iron replacement with infusions of Injectafer in May 2016 and again in December 2019. During her initial follow-up she had remained mildly anemic with hemoglobin in the range of 10 to 11 g, though with normal transferrin saturation. During subsequent follow-up her hemoglobin/hematocrit levels had been just borderline low, but I did opt to give her 1 additional infusion of Injectafer in January 2021, as she continued to complain that she had no energy and her serum iron studies were still consistent with iron deficiency. On 02/03/2021 she was seen in the emergency room with recurrent melena. Her hemoglobin went at that point was stable, and she was discharged home. She remains opposed to undergoing additional GI endoscopy studies, as multiple prior studies have shown no source for her GI blood loss. She indicates that her insurance will not cover a camera endoscopy, which would be the appropriate study for her at this juncture. Her hemoglobin today is 12.2 and her hematocrit is 38.8. Her iron studies indicate her iron is low at 27, saturation 12.6. Due to her fatigue and her drop in her iron and her iron saturation we will order Injectafer to be given upon insurance approval. Patient will follow up in 3 months with CBC and iron studies. 2. She has developed severe, generalized itching. She has a maculopapular rash on her extremities and around her waistband. She was evaluated by dermatology and was determined to have scabies. She has been treated with permethrin on a couple of different occasions but the rash continues. She is to follow-up with dermatology for further evaluation and treatment. 3. Patient developed a vesicular rash on her right hip that is very painful. It appears to be an shingles outbreak. We will treat her with acyclovir and gabapentin. Signed By: Aundrea Zhang N.P. <<Signature on File>>
== END 2021-06-03 13:16 | disposition home or self-care (01) ==
PROVIDERS: Internal Medicine Medical Oncology; PCP Nurse Practitioner Family; Visit Provider Nurse Practitioner Family
DX: D50.9 Iron deficiency anemia, unspecified (principal); B02.9 Zoster without complications; I10 Essential (primary) hypertension; E78.5 Hyperlipidemia, unspecified; I25.10 Atherosclerotic heart disease of native coronary artery without angina pectoris; K21.9 Gastro-esophageal reflux disease without esophagitis; K27.9 Peptic ulcer, site unspecified, unspecified as acute or chronic, without hemorrhage or perforation; F41.9 Anxiety disorder, unspecified; Z79.899 Other long term (current) drug therapy
CPT/HCPCS: 36415; 80053; 83540; 83550; 85025; 99214

== ENCOUNTER 2021-11-04 13:08 | Oncology outpatient (recurring) (ONCR) | payer MEDICARE, MEDICAID, SELFPAY ==
[2021-10-12 15:00] LABS: Erythrocyte Sedimentation Rate 35 mm/hr (0-15)
[2021-10-19 15:53] LABS: CALR Exon 9 Mutation NOT DETECTED (NOT DETECTED); CSF3R Exon 14/17 Mutation NOT DETECTED (NOT DETECTED); JAK2 Exon 12 Mutation NOT DETECTED (NOT DETECTED); JAK2 V617 Block Specimen ID NG; JAK2 V617 Clinical Indication NG; JAK2 V617 Mutation NOT DETECTED (NOT DETECTED); JAK2 V617 Specimen Source NG; MPL Exon 12 Mutation NOT DETECTED (NOT DETECTED)
[2021-10-28] MEDS: ferric carboxy (IVPB) 750 MG in sodium chloride 0.9% (100 ml) 100 ML 345 MG IV (13:50)
[2021-10-28 13:56] VITALS: BP 115/61; PULSE 84; RESP 18; TEMP 36.8; O2SAT 95
[2021-10-28 14:30] VITALS: BP 112/74; PULSE 74; RESP 18; TEMP 36.6; O2SAT 98
[2021-10-28 15:20] VITALS: BP 112/78; PULSE 74; RESP 18; TEMP 36.6; O2SAT 98
[2021-11-04 13:30] VITALS: BP 108/62; PULSE 90; RESP 16; TEMP 35.8; O2SAT 96
[2021-11-04] MEDS: ferric carboxy (IVPB) 750 MG in sodium chloride 0.9% (100 ml) 100 ML 345 MG IV (13:39)
== END 2021-11-04 23:59 | disposition home or self-care (01) ==
PROVIDERS: PCP Nurse Practitioner Family; Visit Provider Nurse Practitioner Family
DX: D50.9 Iron deficiency anemia, unspecified (principal); Z79.899 Other long term (current) drug therapy; D72.829 Elevated white blood cell count, unspecified; R79.89 Other specified abnormal findings of blood chemistry
CPT/HCPCS: 36415; 80053; 81219; 81270; 81339; 81403; 81479; 82728; 83540; 83550; 85025; 85651; 86140; 96365; 99214; J1439

== ENCOUNTER 2021-11-26 11:35 | Oncology outpatient (recurring) (ONCR) | payer MEDICARE, MEDICAID, SELFPAY ==
[2021-11-26 13:47] LABS: Erythrocyte Sedimentation Rate 61 mm/hr (0-15)
== END 2021-12-04 23:59 | disposition home or self-care (01) ==
LOC: ONCMED 11:36
PROVIDERS: Internal Medicine Medical Oncology; PCP Nurse Practitioner Family; Visit Provider Nurse Practitioner Family
DX: D50.9 Iron deficiency anemia, unspecified; R21 Rash and other nonspecific skin eruption; R19.7 Diarrhea, unspecified; D72.829 Elevated white blood cell count, unspecified; D75.839 Thrombocytosis, unspecified; Z79.899 Other long term (current) drug therapy; Z87.891 Personal history of nicotine dependence
CPT/HCPCS: 80053; 82728; 83540; 83550; 85025; 85651; 99214